=== PATIENT | male | born 1965 | race Caucasian/White ===

== ENCOUNTER 2016-11-09 05:38 | Inpatient (IN) | payer MEDICARE ==
[2016-11-09] MEDS ORDERED: NS 0.9% 1000 ML* 1,000 ML IV ONE (05:51)
[2016-11-09 06:06] LABS: Hematocrit 55 % (42-52); Hemoglobin 16.3 g/dl (14.0-18.0); Mean Corpuscular HGB Conc 30 g/dl (31-36); Mean Corpuscular Hemoglobin 27 pg (27-31); Mean Corpuscular Volume 93 fL (80-94); Mean Platelet Volume 8 um3 (7.4-10.4); Red Blood Count 5.93 10^6/ul (4.0-5.4); Red Cell Distribution Width 19 % (10.5-15); White Blood Count 10.6 10^3/ul (3.5-10.8)
[2016-11-09 06:08] LABS: Add Diff/Slide Review? Slide Review Added; Comments Flag Yes
[2016-11-09 06:15] LABS: ALT 20 U/L (7-52); AST 23 U/L (13-39); Albumin 3.6 g/dL (3.2-5.2); Alkaline Phosphatase 75 U/L (34-104); Anion Gap 7 mmol/L (2-11); BUN/Creatinine Ratio 13.4 (8-20); Blood Urea Nitrogen 11 mg/dL (6-24); CO2 Carbon Dioxide 40 mmol/L (22-32); Calcium 9.6 mg/dL (8.6-10.3); Chloride 87 mmol/L (101-111); Creatine Kinase 41 U/L (10-223); EGFR African American 126.4 (>60); EGFR Non-African American 98.3 (>60); Globulin 4.1 g/dL (2-4); Glucose 193 mg/dL (70-100); Magnesium 2.1 mg/dL (1.9-2.7); Sodium 134 mmol/L (133-145); Total Protein 7.7 g/dL (6.4-8.9)
[2016-11-09 06:19] LABS: Troponin I 0.03 ng/mL (<0.04)
[2016-11-09 06:23] LABS: Alcohol < 10 mg/dL (<10)
[2016-11-09] MEDS ORDERED: Piperac/Tazob 3.375 gm in NS* 3.375 GM/100 ML BAG IVPB ONE (06:27)
[2016-11-09 06:29] LABS: Immature Granulocytes 10 % (0-9); Macrocytosis 1+; Metamyelocytes % 5 % (0-2); Microcytosis 1+; Myelocytes % 1 % (0-1); Neutrophil % 79 % (38-83)
[2016-11-09] MEDS ORDERED: Propofol* 100 ML ONE (06:37)
[2016-11-09 06:38] LABS: FIO2 100; Resp Rate 12
[2016-11-09 06:44] LABS: PCO2 Arterial 122 mmHg (35-45)
[2016-11-09] MEDS ORDERED: Propofol* 500 MG/50 ML BTL IV SCH ×2 (06:48→07:00)
[2016-11-09] MEDS ORDERED: methylPREDNISolone 125 MG* 2 ML VIAL IV ONE (06:50)
[2016-11-09] MEDS ORDERED: Albuterol/Ipratropium NEB.SOL* Albuterol 2.5 MG/Ipratropium 0.5 MG 3 ML INH ONE (06:50)
[2016-11-09] MEDS ORDERED: Propofol* 1000 MG (10 MG/ML 100 ml) @ Per Protocol (in ICU Pyxis) IV SCH (07:00)
[2016-11-09 07:38] LABS: Urine Bacteria Absent (Absent); Urine Bilirubin Negative (Negative); Urine Glucose 1+(50 mg/dL) (Negative); Urine Nitrite Negative (Negative); Urine Sperm Present (Absent)
[2016-11-09 07:53] LABS: Benzodiazepine Urine Screen None Detected (None Detect)
[2016-11-09] MEDS ORDERED: Propofol* 100 ML IV SCH (08:00)
--- NOTE | 2016-11-09 08:03 | ADMNOTE ---
Subjective Date of Service: 11/09/16 Interval History: ADMISSION HISTORY AND PHYSICAL EXAM: Allergies Allergy/AdvReac Type Severity Reaction Status Date / Time Morphine Allergy Severe Hallucinati Verified 02/20/16 13:20 ons Codeine Allergy Mild Rash Verified 02/20/16 13:20 Ibuprofen AdvReac Intermediate stomach Verified 02/20/16 13:20 upset Nalbuphine [From Nubain] AdvReac Mild Congestion Verified 02/20/16 13:20 Home Medications Medication Instructions Recorded Confirmed Type Methadone TAB* [Dolophine TAB*] 20 mg PO TID 04/17/12 03/24/15 History oxyCODONE TAB* [Roxycodone TAB 5 5 mg PO QID PRN 04/17/12 01/29/16 History mg*] Albuterol Sulfate [Proair 2 puff INH Q4H PRN 03/15/15 03/24/15 History Respiclick] Metoprolol Tartrate TAB* 75 mg PO BID 03/15/15 01/29/16 History [Lopressor TAB*] ALPRAZolam TAB* [Xanax TAB*] 1 mg PO BID PRN 03/24/15 03/24/15 History Aspirin EC Low Dose* [Ecotrin EC 81 mg PO DAILY 03/24/15 03/24/15 History Low Dose 81 MG*] Lisinopril [Lisinopril 40 MG-] 40 mg PO DAILY 03/24/15 01/29/16 History Pregabalin CAP(*) [Lyrica CAP(*)] 100 mg PO TID 03/24/15 03/24/15 History busPIRone TAB* [Buspar TAB *] 15 mg PO BID 03/24/15 03/24/15 History clonazePAM TAB(*) [Klonopin TAB(*)] 0.5 - 1 mg PO BID 03/24/15 03/24/15 History Cyclobenzaprine TAB* [Flexeril 10 10 mg PO BID PRN #12 tab 11/20/15 Rx MG TAB*] Amlodipine Besylate [Amlodipine 2.5 mg PO DAILY 01/29/16 01/29/16 History Besylate-] Proair Respiclick 01/29/16 History Tiotropium CAP.INH* [Spiriva 01/29/16 History CAP.INH*] Tiotropium CAP.INH* [Spiriva 1 cap.inh INH DAILY 01/29/16 01/29/16 History CAP.INH*] predniSONE TAB* [Deltasone TAB*] 60 mg PO DAILY #21 tab 01/30/16 Rx Acyclovir TAB* [Zovirax TAB*] 800 mg PO QID #50 tab 02/20/16 Rx Clarithromycin TAB* [Biaxin TAB*] 500 mg PO BID #20 tab 02/20/16 Rx HPI: History is obtained third-hand. Son had to go to [facility] and is not available. He heard a thump and found his father unconscious and called EMS. They reported asystole and did CPR. On arrival here he was in atrial fib , unresponsive. He was intubated, later started on propofol. Family History: Findings - Both parents had COPD Social History: Findings - Smoker. 2 children. SDM unknown if any. Past Medical History: Unchanged from Admission - L IKE, cervical and lumbar spine fusion, appy. COPD, [place]USTIN, HTN, HL, [place], chronic pain. Review of Systems - Measurements Intake and Output: Intake and Output Last 24 Hours 11/07/16 11/08/16 11/09/16 11/10/16 06:59 06:59 06:59 06:59 Intake Total 100 Balance 100 Weight 350 lb Intake: IV Fluids 100 - Review of Systems General Comments: Unable to obtain due to patient's LOC. Objective Active Medications: Heparin Sodium (Porcine) (Heparin Vial(*)) 5,000 units SUBCUT Q8HR RITCHIE Sodium Chloride (Ns 0.9% 1000 Ml*) 1,000 mls @ 100 mls/hr IV ED ONCE ONE Stop: 11/09/16 15:50 Last Admin: 11/09/16 06:48 Dose: 100 mls/hr Propofol (Diprivan*) 100 mls @ 9.525 mls/hr IV .(Initial Rate) RITCHIE; 10 MCG/KG/ MIN PRN Reason: Protocol Last Admin: 11/09/16 06:57 Dose: 9.525 mls/hr Propofol (Diprivan*) 100 mls @ 0 mls/hr IV .(Initial Rate) RITCHIE; As Directed PRN Reason: Protocol Vital Signs 11/09/16 11/09/16 11/09/16 06:01 06:11 06:15 Temperature 97.4 F Pulse Rate 110 99 91 Respiratory 18 16 14 Rate Blood Pressure 107/73 116/74 (mmHg) O2 Sat by Pulse 99 100 100 Oximetry 11/09/16 11/09/16 11/09/16 06:17 06:30 06:34 Temperature Pulse Rate 101 90 93 Respiratory 12 20 21 Rate Blood Pressure 114/64 124/72 (mmHg) O2 Sat by Pulse 100 100 100 Oximetry 11/09/16 11/09/16 11/09/16 06:45 06:52 07:00 Temperature 96.4 F 96.8 F 96.8 F Pulse Rate 75 90 97 Respiratory 24 22 21 Rate Blood Pressure 124/64 124/64 119/72 (mmHg) O2 Sat by Pulse 100 99 99 Oximetry 11/09/16 11/09/16 07:15 07:30 Temperature 96.8 F 96.8 F Pulse Rate 85 90 Respiratory 18 33 Rate Blood Pressure 140/78 143/79 (mmHg) O2 Sat by Pulse 100 100 Oximetry Oxygen Devices in Use Now: - - Intubated Appearance: Supine, head partly up on ED stretcher. Intubated, eyes closed, not responsive. Eyes: No Scleral Icterus Neck: NL Appearance and Movements; NL JVP, No Thyroid Enlargement, Masses Respiratory: Symmetrical Chest Expansion and Respiratory Effort, Clear to Auscultation, Clear to Percussion Cardiovascular: NL Sounds; No Murmurs; No JVD, RRR, No Edema, - Abdominal: NL Sounds; No Tenderness; No Distention, No Hepatosplenomegaly, - - very obese Extremities: No Edema, No Clubbing, Cyanosis, - - IO in R leg Skin: No Nodules or Sclerosis, - - Dried blood on face. Blotchy pink areas chest and torsos. Very fair complexion Neurological: - - Unresponsive to voice or light touch. Pupils both 5 mm and fixed. No EOM's. Result Diagrams: 11/09/16 05:50 11/09/16 05:50 Additional Lab and Data: Lab Results 11/09/16 11/09/16 11/09/16 Range/Units 05:50 05:50 05:50 WBC 10.6 (3.5-10.8) 10^3/ul RBC 5.93 H (4.0-5.4) 10^6/ul Hgb 16.3 (14.0-18.0) g/dl Hct 55 H (42-52) % MCV 93 (80-94) fL MCH 27 (27-31) pg MCHC 30 L (31-36) g/dl RDW 19 H (10.5-15) % Plt Count 204 (150-450) 10^3/ul MPV 8 (7.4-10.4) um3 Immature Gran % (Auto) 10 H (0-9) % Neut % (Auto) 81.4 (38-83) % Lymph % (Auto) 13.9 L (25-47) % [place] % (Auto) 3.9 (1-9) % Eos % (Auto) 0.2 (0-6) % Baso % (Auto) 0.6 (0-2) % Absolute Neuts (auto) 8.6 H (1.5-7.7) 10^3/ul Absolute Lymphs (auto) 1.5 (1.0-4.8) 10^3/ul Absolute Monos (auto) 0.4 (0-0.8) 10^3/ul Absolute Eos (auto) 0 (0-0.6) 10^3/ul Absolute Basos (auto) 0.1 (0-0.2) 10^3/ul Absolute Nucleated RBC 0.07 10^3/ul Neutrophils % 79 (38-83) % Band Neutrophils % 4 (0-8) % Lymphocytes % 8 L (25-47) % Monocytes % 3 (0-13) % Metamyelocytes % 5 H (0-2) % Myelocytes % 1 (0-1) % Nucleated RBC % 0.7 Nucleated RBCs/100 WBC 1 H (0-0) Normal RBC Morphology Not Reportable Microcytosis 1+ Macrocytosis 1+ INR (Anticoag Therapy) 1.01 (0.89-1.11) APTT 29.2 (26.0-36.3) seconds Patient Temperature ABG pH (7.35-7.45) ABG pCO2 (35-45) mmHg ABG pO2 (80-100) mmHg ABG HCO3 (19-31) mmol/L ABG O2 Saturation (95-98) % ABG Base Excess (-2.0-2.0) Respiration Rate O2 Delivery Device Ventilator Type Vent Mode FiO2 Inspiratory Time PEEP Pressure Support Pressure Control EPAP IPAP BiPAP Sodium 134 (133-145) mmol/L Potassium 5.0 (3.5-5.0) mmol/L Chloride 87 L (101-111) mmol/L Carbon Dioxide 40 H (22-32) mmol/L Anion Gap 7 (2-11) mmol/L BUN 11 (6-24) mg/dL Creatinine 0.82 (0.67-1.17) mg/dL Est GFR ( Amer) 126.4 (>60) Est GFR (Non-Af Amer) 98.3 (>60) BUN/Creatinine Ratio 13.4 (8-20) Glucose 193 H (70-100) mg/dL Lactic Acid (0.5-2.0) mmol/L Calcium 9.6 (8.6-10.3) mg/dL Magnesium 2.1 (1.9-2.7) mg/dL Total Bilirubin 0.50 (0.2-1.0) mg/dL AST 23 (13-39) U/L ALT 20 (7-52) U/L Alkaline Phosphatase 75 (34-104) U/L Total Creatine Kinase 41 (10-223) U/L CK-MB (CK-2) 3.1 (0.6-6.3) ng/mL Troponin I 0.03 (<0.04) ng/mL B-Natriuretic Peptide ( - 100) pg/mL Total Protein 7.7 (6.4-8.9) g/dL Albumin 3.6 (3.2-5.2) g/dL Globulin 4.1 H (2-4) g/dL Albumin/Globulin Ratio 0.9 L (1-3) Thyroxine (T4) 4.60 L (6.09-12.23) mcg/mL Serum Alcohol < 10 (<10) mg/dL Blood Type Antibody Screen 11/09/16 11/09/16 11/09/16 Range/Units 05:50 05:50 05:50 WBC (3.5-10.8) 10^3/ul RBC (4.0-5.4) 10^6/ul Hgb (14.0-18.0) g/dl Hct (42-52) % MCV (80-94) fL MCH (27-31) pg MCHC (31-36) g/dl RDW (10.5-15) % Plt Count (150-450) 10^3/ul MPV (7.4-10.4) um3 Immature Gran % (Auto) (0-9) % Neut % (Auto) (38-83) % Lymph % (Auto) (25-47) % [place] % (Auto) (1-9) % Eos % (Auto) (0-6) % Baso % (Auto) (0-2) % Absolute Neuts (auto) (1.5-7.7) 10^3/ul Absolute Lymphs (auto) (1.0-4.8) 10^3/ul Absolute Monos (auto) (0-0.8) 10^3/ul Absolute Eos (auto) (0-0.6) 10^3/ul Absolute Basos (auto) (0-0.2) 10^3/ul Absolute Nucleated RBC 10^3/ul Neutrophils % (38-83) % Band Neutrophils % (0-8) % Lymphocytes % (25-47) % Monocytes % (0-13) % Metamyelocytes % (0-2) % Myelocytes % (0-1) % Nucleated RBC % Nucleated RBCs/100 WBC (0-0) Normal RBC Morphology Microcytosis Macrocytosis INR (Anticoag Therapy) (0.89-1.11) APTT (26.0-36.3) seconds Patient Temperature ABG pH (7.35-7.45) ABG pCO2 (35-45) mmHg ABG pO2 (80-100) mmHg ABG HCO3 (19-31) mmol/L ABG O2 Saturation (95-98) % ABG Base Excess (-2.0-2.0) Respiration Rate O2 Delivery Device Ventilator Type Vent Mode FiO2 Inspiratory Time PEEP Pressure Support Pressure Control EPAP IPAP BiPAP Sodium (133-145) mmol/L Potassium (3.5-5.0) mmol/L Chloride (101-111) mmol/L Carbon Dioxide (22-32) mmol/L Anion Gap (2-11) mmol/L BUN (6-24) mg/dL Creatinine (0.67-1.17) mg/dL Est GFR ( Amer) (>60) Est GFR (Non-Af Amer) (>60) BUN/Creatinine Ratio (8-20) Glucose (70-100) mg/dL Lactic Acid 5.7 H* (0.5-2.0) mmol/L Calcium (8.6-10.3) mg/dL Magnesium (1.9-2.7) mg/dL Total Bilirubin (0.2-1.0) mg/dL AST (13-39) U/L ALT (7-52) U/L Alkaline Phosphatase (34-104) U/L Total Creatine Kinase (10-223) U/L CK-MB (CK-2) (0.6-6.3) ng/mL Troponin I (<0.04) ng/mL B-Natriuretic Peptide 232 H ( - 100) pg/mL Total Protein (6.4-8.9) g/dL Albumin (3.2-5.2) g/dL Globulin (2-4) g/dL Albumin/Globulin Ratio (1-3) Thyroxine (T4) (6.09-12.23) mcg/mL Serum Alcohol (<10) mg/dL Blood Type A Positive Antibody Screen Negative 11/09/16 Range/Units 06:30 WBC (3.5-10.8) 10^3/ul RBC (4.0-5.4) 10^6/ul Hgb (14.0-18.0) g/dl Hct (42-52) % MCV (80-94) fL MCH (27-31) pg MCHC (31-36) g/dl RDW (10.5-15) % Plt Count (150-450) 10^3/ul MPV (7.4-10.4) um3 Immature Gran % (Auto) (0-9) % Neut % (Auto) (38-83) % Lymph % (Auto) (25-47) % [place] % (Auto) (1-9) % Eos % (Auto) (0-6) % Baso % (Auto) (0-2) % Absolute Neuts (auto) (1.5-7.7) 10^3/ul Absolute Lymphs (auto) (1.0-4.8) 10^3/ul Absolute Monos (auto) (0-0.8) 10^3/ul Absolute Eos (auto) (0-0.6) 10^3/ul Absolute Basos (auto) (0-0.2) 10^3/ul Absolute Nucleated RBC 10^3/ul Neutrophils % (38-83) % Band Neutrophils % (0-8) % Lymphocytes % (25-47) % Monocytes % (0-13) % Metamyelocytes % (0-2) % Myelocytes % (0-1) % Nucleated RBC % Nucleated RBCs/100 WBC (0-0) Normal RBC Morphology Microcytosis Macrocytosis INR (Anticoag Therapy) (0.89-1.11) APTT (26.0-36.3) seconds Patient Temperature Not Reportable ABG pH 7.18 L* (7.35-7.45) ABG pCO2 122 H* (35-45) mmHg ABG pO2 211 H (80-100) mmHg ABG HCO3 33.3 H (19-31) mmol/L ABG O2 Saturation 99.2 H (95-98) % ABG Base Excess 11.2 H (-2.0-2.0) Respiration Rate 12 O2 Delivery Device C2 Ventilator Type Not Reportable Vent Mode pcv+ FiO2 100 Inspiratory Time 1 PEEP 5 Pressure Support Not Reportable Pressure Control 28 EPAP Not Reportable IPAP Not Reportable BiPAP Not Reportable Sodium (133-145) mmol/L Potassium (3.5-5.0) mmol/L Chloride (101-111) mmol/L Carbon Dioxide (22-32) mmol/L Anion Gap (2-11) mmol/L BUN (6-24) mg/dL Creatinine (0.67-1.17) mg/dL Est GFR ( Amer) (>60) Est GFR (Non-Af Amer) (>60) BUN/Creatinine Ratio (8-20) Glucose (70-100) mg/dL Lactic Acid (0.5-2.0) mmol/L Calcium (8.6-10.3) mg/dL Magnesium (1.9-2.7) mg/dL Total Bilirubin (0.2-1.0) mg/dL AST (13-39) U/L ALT (7-52) U/L Alkaline Phosphatase (34-104) U/L Total Creatine Kinase (10-223) U/L CK-MB (CK-2) (0.6-6.3) ng/mL Troponin I (<0.04) ng/mL B-Natriuretic Peptide ( - 100) pg/mL Total Protein (6.4-8.9) g/dL Albumin (3.2-5.2) g/dL Globulin (2-4) g/dL Albumin/Globulin Ratio (1-3) Thyroxine (T4) (6.09-12.23) mcg/mL Serum Alcohol (<10) mg/dL Blood Type Antibody Screen Assess/Plan/Problems-Billing Assessment: - Patient Problems (1) Cardiac arrest Current Visit: Yes Status: Acute Code(s): I46.9 - CARDIAC ARREST, CAUSE UNSPECIFIED SNOMED Code(s): 537084651 Comment: Asystole verbal report, had CPR 20 minutes by EMS. May need cooling , will initiate now. (2) Atrial fibrillation Current Visit: Yes Status: Acute Code(s): I48.91 - UNSPECIFIED ATRIAL FIBRILLATION SNOMED Code(s): 78853720 Comment: ? new finding. Echo ordered 11/09. (3) COPD (chronic obstructive pulmonary disease) Current Visit: Yes Status: Acute Code(s): J44.9 - CHRONIC OBSTRUCTIVE PULMONARY DISEASE, UNSPECIFIED SNOMED Code(s): 84489578 Comment: Duoneb prn ordered. (4) Morbid obesity Current Visit: Yes Status: Acute Code(s): E66.01 - MORBID (SEVERE) OBESITY DUE TO EXCESS CALORIES SNOMED Code(s): 990357635 Comment: BMI 47.5. (5) Chronic pain Current Visit: No Status: Chronic Code(s): G89.29 - OTHER CHRONIC PAIN SNOMED Code(s): 49217932 Comment: Multiple home medications for pain and anxiety on hold. Status and Disposition: Under care of grades 1 6 tutor.
[2016-11-09] MEDS ORDERED: Albuterol/Ipratropium NEB.SOL* Albuterol 2.5 MG/Ipratropium 0.5 MG 3 ML INH PRN (08:07)
--- NOTE | 2016-11-09 08:37 | RAD ---
Indication: Shortness of breath. Respiratory failure. Single frontal view of the chest performed at 0635 hours was reviewed. Comparison is made with previous exam dated February 20, 2016. Cardiomegaly with interstitial edema persists. ET tube and nasogastric tube remains in place. IMPRESSION: CARDIOMEGALY WITH INTERSTITIAL EDEMA CONSISTENT WITH VASCULAR CONGESTION.
--- NOTE | 2016-11-09 08:39 | RAD ---
indication: The patient was found down and unresponsive. Relevant surgical history includes "neck surgery x3" COMPARISON: CT of the brain dated March 24, 2015 and CTA of the head and neck dated March 24, [address] scan of the brain and c-spine was performed without intravenous contrast enhancement. Contiguous axial sections were obtained from the lung apices through the vertex. BRAIN: The ventricles, cisterns and sulci are within normal limits. No significant focal abnormality or mass effect is seen. Again seen at the right basal ganglia is a 5 mm hypodensity unchanged from the previous CT of the brain. The medina-white differentiation is adequately maintained. The cerebral sulci are less well-defined than the previous CT examination. There is no evidence for intracranial hemorrhage. No significant bony abnormality is present. The mastoid air cells are appropriately aerated. There is moderate mucosal thickening of the bilateral ethmoid air cells. C-SPINE: The patient's endotracheal tube is partially visualized. There are frothy secretions noted in the posterior nasopharynx above the tube. On the sagittal view image there is straightening of the normal cervical lordosis. The vertebral bodies and facet joints are otherwise appropriately aligned. The dens is intact. There is no widening of the atlantodental interval. Postsurgical changes include laminectomy with anterior plate and screw vertebral body fixation at C5, C6 and C7. Degenerative changes include loss of intervertebral disc height and bony proliferation at the facet joints and uncovertebral joints. Marginal osteophyte formation is seen adjacent to the atlantodental interval and overlying the stabilizing ligaments. There is no hyperdense material in the cervical canal to indicate hemorrhage. The visualized musculature and soft tissues are normal. There is no gross lymphadenopathy visualized. The visualized portion of the lung apices are clear. IMPRESSION: 1. The sulci are less well-defined than the most recent brain CT dated March 24, 2015 which could be seen in the setting of diffuse cerebral edema. 2. Degenerative changes and stable postoperative findings of the cervical spine as described above without identification of acute fracture or dislocation. 3. Incidentally noted are frothy secretions in the posterior nasopharynx above the patient's endotracheal tube.
--- NOTE | 2016-11-09 09:14 | RAD ---
Indication: PICC placement, ET tube placement. Single frontal view of the chest performed at 0900 hours was reviewed. Comparison is made with previous exam dated earlier the same day. Cardiomegaly is noted. Interstitial edema persists. Cardiomegaly is noted. Right-sided PICC line is in place. ET tube in appropriate location. IMPRESSION: CARDIOMEGALY WITH INTERSTITIAL EDEMA. PICC LINE REMAINS IN PLACE.
[2016-11-09] MEDS: NS 0.9% 1000 ML* 1,000 ML IV SCH ×2 (09:38→19:26)
[2016-11-09] MEDS ORDERED: NS 0.9% 1000 ML* 2,000 ML IV ONE (11:07)
[2016-11-09 11:34] LABS: FIO2 40
[2016-11-09 11:41] LABS: PCO2 Arterial 72 mmHg (35-45)
--- NOTE | 2016-11-09 12:34 | PN ---
Progress Note - Progress Note Note: CRITICAL CARE MEDICINE Date: 11/09/16 Time: 1200 SUBJECTIVE: Patient seen and examined. f/u from overnight events. PHYSICAL EXAM: Vital Signs: Reviewed. Neurologic: awakens, but not alert. eyes are dysconjugate. pupils reactive and + corneals but not tracking. Spont decerebrate posturing bl and to individual stimuli. weak gag, cough. Grimace to pain present. HEENT: Sclera anicteric. Trachea midline. Cardiovascular: S1 S2 Respiratory: distant, poor excursion Abdomen: Soft, nt, obese, distended Extremities: Warm. macular rash Access: Picc, io LABS: Reviewed. IMAGING: Reviewed. MEDICATIONS: Reviewed. ASSESSMENT: 51 M [facility] - asystole. ~20min downtime Acute cerebral edema Acute on chronic hypoxic and hypercardiic resp failure Lactic acidosis on admission PLAN: Neurologic: Currently with vegetative state. keep ttm euthermia 24h. recieving NS. see if we can push Na up to present further edema. may need 3%. need some time. can keep on low dose propofol to not inc metabolic demands and will need to f/u narc needs given chronic ailments. Support and reserve further px imaging for now. Cardiovascular: Perfusing now. Keep volume up. tropon not surprising, will get echo but likely not primary. Respiratory: Freda aprv. repeat agb better. support. nebs. Gastrointestinal: ogt. sup. hold off on tf at the moment. Renal/Metabolic: f/u LA clearance and potential stephania Infectious Disease: no abx needs. rash may have been sec to zosyn? Hematology: stable and hemoconcentrated. likely to come down. hsq Endocrine: continue with solumedrol. f/u glu Musculoskeletal: bedrest; skin precations. Psych/Social: will look to discuss with family today Supportive and preventative care as ordered. SUP: ppi VTE prophylaxis: heparin Villaseñor catheter given critical illness, monitoring needs for accurate assessment of STEPHANIA and KDIGO criteria for critically ill patients and to avoid potential harms of urinary retention, skin breakdown/ulcers. Disposition: ICU Code Status: Full presently Critical Care Time: 45min FRosalee Damon DO
--- NOTE | 2016-11-09 13:00 | PN ---
Progress Note - Progress Note Note: CRITICAL CARE MEDICINE Date: 11/09/16 Time: 1300 Pts son and pts sister updated. Pts son hasn't informed pts daughter yet, since he was waiting for more info. They were updated at bedside. They expressed understanding and optimism. Sister explains pt, just 2 days ago was explaining to her that she needs to be in charge of his affairs. They are looking to see if they have paperwork although she does not think it was specific to proxy. Pts son explained how he heard the "thump" and pt must have been trying to ambulate to the bathroom when he fell face down. He was apparently still awake trying to mumble words to son. He didn't want to roll him over so he remains face down. He called 911. Disposition: ICU Code Status: Full Critical Care Time: additional 15min Yared Damon,
[2016-11-09] MEDS: methylPREDNISolone SOD 40 MG* 1 ML VIAL IV SCH ×2 (13:01→18:29)
[2016-11-09] MEDS: Lansoprazole susp Kit 3 MG/ML (30 MG = 10 ML) G TUBE SCH (13:01)
[2016-11-09] MEDS: Chlorhexidine MOUTHWASH 0.12%* 15 ML UDC TOPICAL SCH ×3 (13:01→20:20)
--- NOTE | 2016-11-09 13:13 | ECHO ---
Patient: BENJA URIARTE [facility] Rec#: [id number] : 1965 Date: 11/09/2016 Age: 51y Height: 182.9 cm / 72.0 in Weight: 158.8 kg / 350.0 lbs Sex: M BSA: 2.7 Room#: ICU 10 Admit Date#: 11/09/2016 Type: Inpatient Referring: Hang Robledo MD Reading: Gerhard Morales MD Customer Service Rep: Yany Aguiar RN RDCS CC: Cliff Martínez MD Transthoracic Echocardiogram Indication: Asystole BP: 140/92 HR: 98 Rhythm: A-Fib Findings History: HTN, HLD, morbid obesity, COPD, [place], smoker. The patient is on mechanical ventilation during the exam. Technical Comments: The study is technically limited due to patient body habitus. The study is technically limited due to the patient's history of COPD. The study is technically limited due to the patient's smoking history. The study is technically limited due to patient being intubated and on a ventilator. Completed at 1220. Left Ventricle: The left ventricular chamber size is normal. Mild to moderate concentric left ventricular hypertrophy is observed.sigmoid septum. Global left ventricular wall motion and contractility are within normal limits. There is normal left ventricular systolic function. The estimated ejection fraction is 55-60%. There is septal flattening of the interventricular septum consistent with right ventricular volume or pressure overload. The assessment of diastolic function is non-diagnostic. Left Atrium: The left atrium is mildly dilated. Right Ventricle: The right ventricle wall thickness is severely increased.13 mm The right ventricle is mild to moderately dilated. The right ventricular global systolic function is moderately reduced.to severely reduced. Right Atrium: The right atrium is mildly dilated. Aortic Valve: The aortic valve structure is not well visualized. The aortic valve leaflets are mildly thickened. There is no evidence of aortic regurgitation. There is no evidence of aortic stenosis. Mitral Valve: The mitral valve leaflets are mildly thickened. There is no evidence of mitral regurgitation. There is no evidence of mitral stenosis. Tricuspid Valve: The tricuspid valve leaflets are normal. There is no evidence of tricuspid valve regurgitation. Pulmonic Valve: The pulmonic valve structure is not well visualized. Pericardium: There is no significant pericardial effusion. A pericardial fat pad is visualized. Aorta: The ascending aorta is not well visualized. The aortic arch is not well visualized. The aortic root is normal in size. Pulmonary Artery: The main pulmonary artery is not well visualized. Venous: Unable to accurately comment on the size collapsibility of the IVC as the patient in known to be on mechanical ventilation. Conclusions The study is technically limited due to the patient's history of COPD. Mild to moderate concentric left ventricular hypertrophy is observed with a sigmoid septum. The estimated ejection fraction is 55-60%. The left atrium is mildly dilated. The right ventricle is mild to moderately dilated. The right ventricle wall thickness is severely increased. The right ventricular global systolic function is moderately to severely reduced. No significant valve lesions but suboptimal imaging reduces the ability to detect valvular dysfunction. SImilar to 3.2012 except there was mild TR and moderate pulmonary hypertension reported then. Measurements Name Value Normal Range RVIDd (AP) 2D 3.8 cm (0.9 - 2.6) RVDdMajor (2D) 4.5 cm (2.2 - 4.4) RVAW (2D) 1.3 cm (0.2 - 0.5) RAd ISD 4CH 5.5 cm (3.4 - 4.9) RA (A4C)W 4.1 cm (2.9 - 4.6) IVSd (2D) 1.5 cm (0.6 - 1) LVPWd (2D) 1.1 cm (0.6 - 1) LVIDd (2D) 4.1 cm (3.6 - 5.4) LVIDs (2D) 3.3 cm - LV FS (2D) 20 % (25 - 45) Aortic Annulus 1.9 cm (1.4 - 2.6) Ao root diameter (2D) 2.9 cm (2.1 - 3.5) LA dimension (AP) 2D 3.7 cm (2.3 - 3.8) LAd ISD 4CH 5.5 cm (2.9 - 5.3) LA ISD 4CH W 4 cm (2.5 - 4.5) Name Value Normal Range MV E-wave Vmax 0.86 m/sec - MV deceleration time 215 msec - LV septal e' Vmax 0.12 m/sec - LV lateral e' Vmax 0.14 m/sec - LV E:e' septal ratio 7.2 ratio - LV E:e' lateral ratio 6.1 ratio - Name Value Normal Range AV Vmax 1.2 m/sec - LVOT Vmax 1.1 m/sec - Name Value Normal Range IVC diameter 2.8 cm -
[2016-11-09] MEDS: Sodium Chloride 3% HYPERTONIC* 500 ML IVPB SCH (13:30)
[2016-11-09] MEDS: Propofol* 100 ML IV SCH ×2 (13:42→20:22)
[2016-11-09] MEDS: Heparin VIAL(*) 5000 UNITS/ML VIAL (FIVE THOUSAND) SUBCUT SCH ×2 (13:42→22:31)
--- NOTE | 2016-11-09 19:28 | ED ---
Berry Magaña Aidan, scribed for Ryan Walker on 11/09/16 at 0603 . HPI Cardiac - HPI Summary HPI Summary: 51 y/o male presents to the ED via EMS for an acute, severe episode of cardiac arrest. At 0440, the patients son heard him fall and immediately called 911. On arrival, EMS found the patient face down in the bathroom with no pulse. His body was still warm. EMS looked for access but could not get any. After 20 minutes of manual CPR, pulses were found and the patient had rapid AFib. He was then intubated. He had good wave form. He now has an IO. He was never given medication or electricity. Hx of COPD. 12-lead EKG conducted in the field did not indicate STEMI, according to EMS. Lastly, he presents with some blood on his face due to trauma from his fall. - History of Current Complaint Stated Complaint: CARDIAC ARREST Hx Obtained From: EMS Hx From Patient Unobtainable Due To: Altered Mental Status Onset/Duration: Started Minutes Ago, Still Present Time of Onset: 04:40 Timing: Intermittent Initial Severity: Severe Current Severity: Moderate Pain Intensity: 0 - Pt is unconscious Pain Scale Used: 0-10 Numeric Aggravating Factor(s): Other: - unknown Alleviating Factor(s): Other: - unknown Associated Signs and Symptoms: Positive: Other: - cardiac arrest Related History: Obesity - Risk Factors Pulmonary Embolism Risk Factors: Smoking Cardiac Risk Factors: Smoking Atrial Fibrillation Risk Factors: Chronic Pulmonary Disease - COPD TAD Risk Factors: Smoking AMI/ACS Risk Factors: Smoking Pseudomonas Risk Factors: Chronic Lung Disease - COPD Tuberculosis Risk Factors: Smoking - Additional Pertinent History Primary Care Physician: [id number] - Allergy/Home Medications Allergies/Adverse Reactions: Allergies Allergy/AdvReac Type Severity Reaction Status Date / Time Morphine Allergy Severe Hallucinati Verified 02/20/16 13:20 ons Codeine Allergy Mild Rash Verified 02/20/16 13:20 Ibuprofen AdvReac Intermediate stomach Verified 02/20/16 13:20 upset Nalbuphine [From Nubain] AdvReac Mild Congestion Verified 02/20/16 13:20 PMH/Surg Hx/FS Hx/Imm Hx Endocrine/Hematology History: Reports: Hx Anticoagulant Therapy - HEPARIN SQ WHILE IN HOSPITAL Denies: Hx Diabetes, Hx Thyroid Disease Cardiovascular History: Reports: Hx Congestive Heart Failure - CHRONIC, Hx Coronary Artery Disease, Hx Hypercholesterolemia, Hx Hypotension, Hx Hypertension, Hx Syncope - Hx of syncopal episodes Denies: Hx Pacemaker/ICD Respiratory History: Reports: Hx Asthma, Hx Chronic Obstructive Pulmonary Disease (COPD), Hx Sleep Apnea, Other Respiratory Problems/Disorders - On Contiinuos O2 GI History: Reports: Other GI Disorders - APPENDECTOMY History: Reports: Hx Kidney Stones Denies: Hx Renal Disease, Other Problems/Disorders Musculoskeletal History: Reports: Hx Back Problems, Other Musculoskeletal History - chronic pain Sensory History: Denies: Hx Hearing Aid Neurological History: Reports: 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 low back surgery x2,. ORIF fracture right foot,. exc renal calculi. T&A,. appendectomy. septoplasty ,. left Total Hip Replacement,. RIGHT HAND ORIF Hx Anesthesia Reactions: - UNKNOWN - Immunization History Date of Tetanus Vaccine: unknown Date of Influenza Vaccine: unknown Infectious Disease History: Denies: Hx Hepatitis, Hx Human Immunodeficiency Virus (HIV), Traveled Outside the [place] in Last 30 Days - UNKNOWN - Family History Known Family History: Positive: Cardiac Disease - Social History Occupation: Disabled Lives: Assisted Living Alcohol Use: None Substance Use Type: Reports: None Smoking Status (MU): Heavy Every Day Tobacco Smoker Type: Cigarettes Amount Used/How Often: < 1ppd Have You Smoked in the Last Year: Yes Review of Systems Constitutional: Negative Eyes: Negative ENT: Negative Cardiovascular: Other - cardiac arest, AFib Negative: Chest Pain Respiratory: Negative Gastrointestinal: Negative Genitourinary: Negative Musculoskeletal: Negative Skin: Negative Neurological: Negative Psychological: Normal All Other Systems Reviewed And Are Negative: Yes Physical Exam Triage Information Reviewed: Yes Vital Signs On Initial Exam: Initial Vitals Temp Pulse Resp BP Pulse Ox 97.4 F 110 18 107/73 99 11/09/16 06:01 11/09/16 06:01 11/09/16 06:01 11/09/16 06:01 11/09/16 06:01 Appearance: Positive: Obese Skin: Positive: Warm, Skin Color Reflects Adequate Perfusion, Dry Head/Face: Positive: Normal Head/Face Inspection, Other - blood on the right orbit area Eyes: Positive: Normal ENT: Positive: Normal ENT inspection Neck: Positive: Supple, Nontender Respiratory/Lung Sounds: Positive: Other - mechanical ventilation, breath sounds equal Cardiovascular: Positive: Other - irregularly irregular heartbeat Abdomen Description: Positive: Distended Bowel Sounds: Positive: Present Musculoskeletal: Positive: Other - no pitting edema Neurological: Positive: Other - unconscious Psychiatric: Positive: Other - Pt is unconscious and has been since arrival AVPU Assessment: Unconscious Diagnostics - Vital Signs Vital Signs Temp Pulse Resp BP Pulse Ox 11/09/16 06:52 96.8 F 90 22 124/64 99 11/09/16 06:01 97.4 F 110 18 107/73 99 - Laboratory Lab Results: Lab Results 11/09/16 11/09/16 11/09/16 Range/Units 05:50 05:50 05:50 WBC 10.6 (3.5-10.8) 10^3/ul RBC 5.93 H (4.0-5.4) 10^6/ul Hgb 16.3 (14.0-18.0) g/dl Hct 55 H (42-52) % MCV 93 (80-94) fL MCH 27 (27-31) pg MCHC 30 L (31-36) g/dl RDW 19 H (10.5-15) % Plt Count 204 (150-450) 10^3/ul MPV 8 (7.4-10.4) um3 Immature Gran % (Auto) 10 H (0-9) % Neut % (Auto) 81.4 (38-83) % Lymph % (Auto) 13.9 L (25-47) % [place] % (Auto) 3.9 (1-9) % Eos % (Auto) 0.2 (0-6) % Baso % (Auto) 0.6 (0-2) % Absolute Neuts (auto) 8.6 H (1.5-7.7) 10^3/ul Absolute Lymphs (auto) 1.5 (1.0-4.8) 10^3/ul Absolute Monos (auto) 0.4 (0-0.8) 10^3/ul Absolute Eos (auto) 0 (0-0.6) 10^3/ul Absolute Basos (auto) 0.1 (0-0.2) 10^3/ul Absolute Nucleated RBC 0.07 10^3/ul Neutrophils % 79 (38-83) % Band Neutrophils % 4 (0-8) % Lymphocytes % 8 L (25-47) % Monocytes % 3 (0-13) % Metamyelocytes % 5 H (0-2) % Myelocytes % 1 (0-1) % Nucleated RBC % 0.7 Nucleated RBCs/100 WBC 1 H (0-0) Normal RBC Morphology Not Reportable Microcytosis 1+ Macrocytosis 1+ INR (Anticoag Therapy) 1.01 (0.89-1.11) APTT 29.2 (26.0-36.3) seconds Patient Temperature ABG pH (7.35-7.45) ABG pCO2 (35-45) mmHg ABG pO2 (80-100) mmHg ABG HCO3 (19-31) mmol/L ABG O2 Saturation (95-98) % ABG Base Excess (-2.0-2.0) Respiration Rate O2 Delivery Device Ventilator Type Vent Mode FiO2 Inspiratory Time PEEP Pressure Support Pressure Control EPAP IPAP BiPAP Sodium 134 (133-145) mmol/L Potassium 5.0 (3.5-5.0) mmol/L Chloride 87 L (101-111) mmol/L Carbon Dioxide 40 H (22-32) mmol/L Anion Gap 7 (2-11) mmol/L BUN 11 (6-24) mg/dL Creatinine 0.82 (0.67-1.17) mg/dL Est GFR ( Amer) 126.4 (>60) Est GFR (Non-Af Amer) 98.3 (>60) BUN/Creatinine Ratio 13.4 (8-20) Glucose 193 H (70-100) mg/dL Lactic Acid (0.5-2.0) mmol/L Calcium 9.6 (8.6-10.3) mg/dL Magnesium 2.1 (1.9-2.7) mg/dL Total Bilirubin 0.50 (0.2-1.0) mg/dL AST 23 (13-39) U/L ALT 20 (7-52) U/L Alkaline Phosphatase 75 (34-104) U/L Total Creatine Kinase 41 (10-223) U/L CK-MB (CK-2) 3.1 (0.6-6.3) ng/mL Troponin I 0.03 (<0.04) ng/mL B-Natriuretic Peptide ( - 100) pg/mL Total Protein 7.7 (6.4-8.9) g/dL Albumin 3.6 (3.2-5.2) g/dL Globulin 4.1 H (2-4) g/dL Albumin/Globulin Ratio 0.9 L (1-3) Thyroxine (T4) 4.60 L (6.09-12.23) mcg/mL Serum Alcohol < 10 (<10) mg/dL Blood Type Antibody Screen 11/09/16 11/09/16 11/09/16 Range/Units 05:50 05:50 05:50 WBC (3.5-10.8) 10^3/ul RBC (4.0-5.4) 10^6/ul Hgb (14.0-18.0) g/dl Hct (42-52) % MCV (80-94) fL MCH (27-31) pg MCHC (31-36) g/dl RDW (10.5-15) % Plt Count (150-450) 10^3/ul MPV (7.4-10.4) um3 Immature Gran % (Auto) (0-9) % Neut % (Auto) (38-83) % Lymph % (Auto) (25-47) % [place] % (Auto) (1-9) % Eos % (Auto) (0-6) % Baso % (Auto) (0-2) % Absolute Neuts (auto) (1.5-7.7) 10^3/ul Absolute Lymphs (auto) (1.0-4.8) 10^3/ul Absolute Monos (auto) (0-0.8) 10^3/ul Absolute Eos (auto) (0-0.6) 10^3/ul Absolute Basos (auto) (0-0.2) 10^3/ul Absolute Nucleated RBC 10^3/ul Neutrophils % (38-83) % Band Neutrophils % (0-8) % Lymphocytes % (25-47) % Monocytes % (0-13) % Metamyelocytes % (0-2) % Myelocytes % (0-1) % Nucleated RBC % Nucleated RBCs/100 WBC (0-0) Normal RBC Morphology Microcytosis Macrocytosis INR (Anticoag Therapy) (0.89-1.11) APTT (26.0-36.3) seconds Patient Temperature ABG pH (7.35-7.45) ABG pCO2 (35-45) mmHg ABG pO2 (80-100) mmHg ABG HCO3 (19-31) mmol/L ABG O2 Saturation (95-98) % ABG Base Excess (-2.0-2.0) Respiration Rate O2 Delivery Device Ventilator Type Vent Mode FiO2 Inspiratory Time PEEP Pressure Support Pressure Control EPAP IPAP BiPAP Sodium (133-145) mmol/L Potassium (3.5-5.0) mmol/L Chloride (101-111) mmol/L Carbon Dioxide (22-32) mmol/L Anion Gap (2-11) mmol/L BUN (6-24) mg/dL Creatinine (0.67-1.17) mg/dL Est GFR ( Amer) (>60) Est GFR (Non-Af Amer) (>60) BUN/Creatinine Ratio (8-20) Glucose (70-100) mg/dL Lactic Acid 5.7 H* (0.5-2.0) mmol/L Calcium (8.6-10.3) mg/dL Magnesium (1.9-2.7) mg/dL Total Bilirubin (0.2-1.0) mg/dL AST (13-39) U/L ALT (7-52) U/L Alkaline Phosphatase (34-104) U/L Total Creatine Kinase (10-223) U/L CK-MB (CK-2) (0.6-6.3) ng/mL Troponin I (<0.04) ng/mL B-Natriuretic Peptide 232 H ( - 100) pg/mL Total Protein (6.4-8.9) g/dL Albumin (3.2-5.2) g/dL Globulin (2-4) g/dL Albumin/Globulin Ratio (1-3) Thyroxine (T4) (6.09-12.23) mcg/mL Serum Alcohol (<10) mg/dL Blood Type A Positive Antibody Screen Negative 11/09/16 Range/Units 06:30 WBC (3.5-10.8) 10^3/ul RBC (4.0-5.4) 10^6/ul Hgb (14.0-18.0) g/dl Hct (42-52) % MCV (80-94) fL MCH (27-31) pg MCHC (31-36) g/dl RDW (10.5-15) % Plt Count (150-450) 10^3/ul MPV (7.4-10.4) um3 Immature Gran % (Auto) (0-9) % Neut % (Auto) (38-83) % Lymph % (Auto) (25-47) % [place] % (Auto) (1-9) % Eos % (Auto) (0-6) % Baso % (Auto) (0-2) % Absolute Neuts (auto) (1.5-7.7) 10^3/ul Absolute Lymphs (auto) (1.0-4.8) 10^3/ul Absolute Monos (auto) (0-0.8) 10^3/ul Absolute Eos (auto) (0-0.6) 10^3/ul Absolute Basos (auto) (0-0.2) 10^3/ul Absolute Nucleated RBC 10^3/ul Neutrophils % (38-83) % Band Neutrophils % (0-8) % Lymphocytes % (25-47) % Monocytes % (0-13) % Metamyelocytes % (0-2) % Myelocytes % (0-1) % Nucleated RBC % Nucleated RBCs/100 WBC (0-0) Normal RBC Morphology Microcytosis Macrocytosis INR (Anticoag Therapy) (0.89-1.11) APTT (26.0-36.3) seconds Patient Temperature Not Reportable ABG pH 7.18 L* (7.35-7.45) ABG pCO2 122 H* (35-45) mmHg ABG pO2 211 H (80-100) mmHg ABG HCO3 33.3 H (19-31) mmol/L ABG O2 Saturation 99.2 H (95-98) % ABG Base Excess 11.2 H (-2.0-2.0) Respiration Rate 12 O2 Delivery Device C2 Ventilator Type Not Reportable Vent Mode pcv+ FiO2 100 Inspiratory Time 1 PEEP 5 Pressure Support Not Reportable Pressure Control 28 EPAP Not Reportable IPAP Not Reportable BiPAP Not Reportable Sodium (133-145) mmol/L Potassium (3.5-5.0) mmol/L Chloride (101-111) mmol/L Carbon Dioxide (22-32) mmol/L Anion Gap (2-11) mmol/L BUN (6-24) mg/dL Creatinine (0.67-1.17) mg/dL Est GFR ( Amer) (>60) Est GFR (Non-Af Amer) (>60) BUN/Creatinine Ratio (8-20) Glucose (70-100) mg/dL Lactic Acid (0.5-2.0) mmol/L Calcium (8.6-10.3) mg/dL Magnesium (1.9-2.7) mg/dL Total Bilirubin (0.2-1.0) mg/dL AST (13-39) U/L ALT (7-52) U/L Alkaline Phosphatase (34-104) U/L Total Creatine Kinase (10-223) U/L CK-MB (CK-2) (0.6-6.3) ng/mL Troponin I (<0.04) ng/mL B-Natriuretic Peptide ( - 100) pg/mL Total Protein (6.4-8.9) g/dL Albumin (3.2-5.2) g/dL Globulin (2-4) g/dL Albumin/Globulin Ratio (1-3) Thyroxine (T4) (6.09-12.23) mcg/mL Serum Alcohol (<10) mg/dL Blood Type Antibody Screen Result Diagrams: 11/09/16 05:50 11/09/16 05:50 Lab Statement: Any lab studies that have been ordered have been reviewed, and results considered in the medical decision making process. - CT CT SPINE CT Interpretation: No Acute Changes - IMPRESSION: Patient is status post C5-C7 anterior fusion. Hardware appears in satisfactory position. Patient is also status post multilevel cervical laminectomy. Negative for cervical fracture or malalignment. CT Interpretation Completed By: Radiologist - press operator carbon blocks Disposition - Course Course Of Treatment: This is a 51 y/o male presenting via EMS for an acute, severe episode of cardiac arrest. At 0440, the patients son heard him fall and immediately called 911. On arrival, EMS found the patient face down in the bathroom with no pulse. After 20 minutes of manual CPR, pulses were found and the patient had rapid AFib. He was then intubated. He was never given medication or electricity. Hx of COPD. 12-lead EKG conducted in the field did not indicate STEMI, according to EMS. EKG in the ED indicated AFib. The patient will be admitted to Dr. Lepe for further examination. d/w Dr Victoria neurology for consult. - Diagnoses Provider Diagnoses: Cardiac arrest, Syncope, Head injury, Atrial fibrillation, Respiratory failure , hypercarbia status post intubation, Cerebral edema, ASYSTOLE - Critical Care Time Critical Care Time: 30-74 min - 60 minutes Discharge - Discharge Plan Condition: Critical Disposition: OTHER Discharge Disposition Comment: Patient is admitted to Dr. Lepe. The documentation as recorded by the Berry allison Aidan accurately reflects the service I personally performed and the decisions made by , Ryan Walker.
[2016-11-10] MEDS: methylPREDNISolone SOD 40 MG* 1 ML VIAL IV SCH ×5 (00:32→23:19)
[2016-11-10] MEDS: Chlorhexidine MOUTHWASH 0.12%* 15 ML UDC TOPICAL SCH ×7 (00:32→23:19)
[2016-11-10] MEDS: Propofol* 100 ML IV SCH ×8 (01:43→23:52)
[2016-11-10] MEDS: Sodium Chloride 3% HYPERTONIC* 500 ML IVPB SCH ×4 (01:57→21:43)
[2016-11-10] MEDS: NS 0.9% 1000 ML* 1,000 ML IV SCH ×2 (03:35→10:11)
[2016-11-10] MEDS: fentaNYL* 50 MCG/ML 2 ML VIAL (100 MCG VIAL) IV SLOW PU PRN ×4 (05:32→21:55)
[2016-11-10] MEDS: Heparin VIAL(*) 5000 UNITS/ML VIAL (FIVE THOUSAND) SUBCUT SCH ×3 (05:32→20:27)
[2016-11-10 05:53] LABS: Hematocrit 47 % (42-52); Hemoglobin 14.3 g/dl (14.0-18.0); Mean Corpuscular HGB Conc 30 g/dl (31-36); Mean Corpuscular Hemoglobin 27 pg (27-31); Mean Corpuscular Volume 88 fL (80-94); Mean Platelet Volume 8 um3 (7.4-10.4); Red Blood Count 5.36 10^6/ul (4.0-5.4); Red Cell Distribution Width 18 % (10.5-15); White Blood Count 9.9 10^3/ul (3.5-10.8)
[2016-11-10 05:54] LABS: Comments Flag Yes
[2016-11-10 06:09] LABS: Albumin 2.7 g/dL (3.2-5.2); Direct Bilirubin 0.2 mg/dL (0.03-0.18); Globulin 3.2 g/dL (2-4); Indirect Bilirubin 0.3 mg/dL (0.3-1.0); Magnesium 1.8 mg/dL (1.9-2.7); Phosphorus 2.6 mg/dL (2.5-5.0); Total Bilirubin 0.5 mg/dL (0.2-1.0); Total Protein 5.9 g/dL (6.4-8.9)
[2016-11-10] MEDS: Lansoprazole susp Kit 3 MG/ML (30 MG = 10 ML) G TUBE SCH (07:51)
[2016-11-10] MEDS ORDERED: fentaNYL* 50 MCG/ML 2 ML VIAL (100 MCG VIAL) ONE (10:24)
[2016-11-10] MEDS ORDERED: LORazepam INJ* 2 MG/ML 1 ML VIAL ONE (10:32)
[2016-11-10] MEDS ORDERED: NS 0.9% 1000 ML* 1,000 ML IV SCH (10:34)
[2016-11-10] MEDS ORDERED: LORazepam INJ* 2 MG/ML 1 ML VIAL IV PUSH ONE ×2 (10:34→23:00)
[2016-11-10] MEDS ORDERED: fentaNYL* 50 MCG/ML 2 ML VIAL (100 MCG VIAL) IV SLOW PU ONE (10:34)
[2016-11-10] MEDS ORDERED: Magnesium Sulf 4 GM/100 ML IV* 4,000 MG/100 ML BAG IVPB ONE (10:36)
[2016-11-10] MEDS ORDERED: fentaNYL PCA* 20 ML ONE (10:45)
[2016-11-10] MEDS: fentaNYL PCA* 20 ML PCA SCH (10:46)
[2016-11-10 10:54] LABS: BUN/Creatinine Ratio 37.8 (8-20); Calcium 8.4 mg/dL (8.6-10.3); EGFR African American 252.6 (>60); EGFR Non-African American 196.4 (>60)
--- NOTE | 2016-11-10 11:26 | PN ---
Progress Note - Progress Note Note: CRITICAL CARE MEDICINE Date: 11/10/16 Time: 905 SUBJECTIVE: Patient seen and examined. PHYSICAL EXAM: Vital Signs: Reviewed. Neurologic: awakens, not following commands, but starting to move more off sedation. eyes more conjugate. pupils reactive and +corneals. Grimace and movement to pain. shivering off prop. HEENT: Sclera anicteric but edema present. Trachea midline. Cardiovascular: S1 S2 Respiratory: distant, little better excursion, coarse Abdomen: Soft, nt, obese, distended Extremities: Warm. macular rash better Access: Picc LABS: Reviewed. IMAGING: Reviewed. MEDICATIONS: Reviewed. ASSESSMENT: 51 M [facility]CA - asystole. ~20min downtime Acute cerebral edema Acute on chronic hypoxic and hypercardic resp failure Lactic acidosis on admission PLAN: Neurologic: keep ttm euthermia another 24h and then more liberal control. 3% to combat cerebral edema. propofol continued to blunt shivering and dec metabolic demands. given pain ongoing utilize fent gtt as well. Support and time. Cardiovascular: Perfusion holding. vol status ok. echo no surprises. Respiratory: Freda aprv continued. support. nebs. Gastrointestinal: ogt. sup. tf today. Renal/Metabolic: f/u lytes Infectious Disease: no abx needs. Hematology: stable. hsq Endocrine: continue with solumedrol. f/u glu Musculoskeletal: bedrest; skin precautions. Psych/Social: pts other son present today and updated. explained we should anticipate family meeting on Saturday. Supportive and preventative care as ordered. SUP: ppi VTE prophylaxis: heparin Villaseñor catheter given critical illness, monitoring needs for accurate assessment of STEPHANIA and KDIGO criteria for critically ill patients and to avoid potential harms of urinary retention, skin breakdown/ulcers. Disposition: ICU Code Status: Full presently Critical Care Time: 40min Yared Damon DO
--- NOTE | 2016-11-10 13:30 | PN ---
Correspondence/Letterhead Correspondence: 11/10/16 RE: BENJA URIARTE November 10, 2016 Work Note To whom it may concern, Benja Uriarte, father for Ashwin Uriarte, has been under my care since November 09, 2016, and remains critically ill in the intensive care unit at [facility]. Family presence is immediately requested. Patient will remain critically ill in the intensive care unit for some time. Please allow this to document to serve as validation. Sincerely, Yared Damon DO ICU [place] [facility] SupervisorSeptic Cleaner Medicine [address] [place] [address] Carlos Damon DO [id number]
[2016-11-11] MEDS: Propofol* 100 ML IV SCH ×10 (01:38→21:31)
[2016-11-11] MEDS: fentaNYL* 50 MCG/ML 2 ML VIAL (100 MCG VIAL) IV SLOW PU PRN (03:17)
[2016-11-11] MEDS: Chlorhexidine MOUTHWASH 0.12%* 15 ML UDC TOPICAL SCH ×7 (03:18→23:59)
[2016-11-11] MEDS: fentaNYL PCA* 20 ML PCA SCH ×2 (03:20→20:23)
[2016-11-11] MEDS: methylPREDNISolone SOD 40 MG* 1 ML VIAL IV SCH ×4 (05:22→23:59)
[2016-11-11] MEDS: Heparin VIAL(*) 5000 UNITS/ML VIAL (FIVE THOUSAND) SUBCUT SCH ×3 (05:22→21:30)
[2016-11-11] MEDS: Sodium Chloride 3% HYPERTONIC* 500 ML IVPB SCH ×2 (05:35→11:24)
[2016-11-11 05:51] LABS: Hematocrit 44 % (42-52); Hemoglobin 13.1 g/dl (14.0-18.0); Mean Corpuscular HGB Conc 30 g/dl (31-36); Mean Corpuscular Hemoglobin 27 pg (27-31); Mean Corpuscular Volume 89 fL (80-94); Mean Platelet Volume 8 um3 (7.4-10.4); Red Blood Count 4.89 10^6/ul (4.0-5.4); Red Cell Distribution Width 19 % (10.5-15); White Blood Count 8.1 10^3/ul (3.5-10.8)
[2016-11-11 05:53] LABS: Comments Flag Yes
[2016-11-11 06:07] LABS: Calcium 8.6 mg/dL (8.6-10.3); Magnesium 2.4 mg/dL (1.9-2.7); Phosphorus 2.3 mg/dL (2.5-5.0); Potassium 4.1 mmol/L (3.5-5.0)
--- NOTE | 2016-11-11 10:31 | PN ---
Progress Note - Progress Note Note: CRITICAL CARE MEDICINE Date: 11/11/16 Time: 1000 SUBJECTIVE: Patient seen and examined. Shivering last pm, and since he had gone ~36h with cooling needs, and was having inc sedation demands, thought it better to dc tight control and utilize prn meds rather then allow shivering to increase metabolic consumption. PHYSICAL EXAM: Vital Signs: Reviewed. Neurologic: awake, not following commands, respond to threat but inconsisitent. attempting more localizing with painful stimuli. HEENT: Sclera injected L>R, conjunctival edema present but better. Trachea midline. ett high Cardiovascular: S1 S2 Respiratory: distant, coarse Abdomen: Soft, nt, obese, less distended Extremities: Warm. macular rash improved Access: Picc LABS: Reviewed. IMAGING: Reviewed. MEDICATIONS: Reviewed. ASSESSMENT: 51 M [facility] - asystole. ~20min downtime Acute cerebral edema Acute on chronic hypoxic and hypercardic resp failure Lactic acidosis on admission COPD Anoxic josé injury PLAN: Neurologic: maintain euthermia without external cooling. check Head CT today to re-eval degree of edema. may obtian further px testing this week but have time for such. can likely come off 3% today but eval ct first. Support and time. Cardiovascular: Perfusing. vol status up interstially. hold off on overloading, although needs patency of flow with his chronic right heart dysfunction. Respiratory: Freda aprv continued. support. nebs. Gastrointestinal: ogt. sup. tf. Renal/Metabolic: f/u lytes and low uout this am. Infectious Disease: no abx needs. Hematology: stable. hsq Endocrine: continue solumedrol. f/u glu Musculoskeletal: bedrest; skin precautions. Psych/Social: will need family meeting saturday. palliative/spiritual support if family desires. Supportive and preventative care as ordered. SUP: ppi VTE prophylaxis: heparin Villaseñor catheter given critical illness, monitoring needs for accurate assessment of STEPHANIA and KDIGO criteria for critically ill patients and to avoid potential harms of urinary retention, skin breakdown/ulcers. Disposition: ICU Code Status: Full Critical Care Time: 36min FRosalee Dmaon DO
[2016-11-11] MEDS ORDERED: Furosemide IV* 10 MG/ML VIAL (40 MG) IV SLOW PU ONE (11:18)
--- NOTE | 2016-11-11 11:18 | RAD ---
INDICATION: Verification of OG tube placement COMPARISON: Chest x-ray dated November 09, 2016 TECHNIQUE: Single AP portable view of the chest was obtained. FINDINGS: Image quality is compromised due to the relative inferiority of a portable chest x-ray and the patient's large body habitus. A gastric tube is confidently seen overlying the mediastinum and at least a portion of the tube is seen below the level the diaphragm. The tip of the tube is obscured. Again seen is a right-sided PICC line with the tip terminating in the superior vena cava. Heart and lungs are grossly normal. IMPRESSION: A portion of the gastric tube is identified below the level of the diaphragm, although the tip is not discretely visualized.
[2016-11-11] MEDS ORDERED: Potassium Chloride LIQUID* 20 MEQ PACKET G TUBE ONE (11:30)
[2016-11-11] MEDS: Lansoprazole susp Kit 3 MG/ML (30 MG = 10 ML) G TUBE SCH (11:37)
--- NOTE | 2016-11-11 11:40 | RAD ---
INDICATION: Follow-up suspected and anoxic brain injury to the brain COMPARISON: Most recent comparison CT of the brain is dated November 09, 2016. There is a CT of the brain dated March 24, 2015 available for comparison as well. TECHNIQUE: Contiguous axial sections of the brain were obtained from the skull base to the vertex without contrast. FINDINGS: The ventricles, cisterns and sulci are within normal limits. Maintenance of the arguello-white matter differentiation is preserved but less so when compared to the 2 most recent previous brain CTs. The sulci are still adequately defined. No significant focal abnormality or mass effect is present. There is no evidence for intracranial hemorrhage. No significant focal osseous abnormality is present. The visualized portion of the paranasal sinuses and mastoid air cells appear clear. IMPRESSION: Currently the arguello-white matter differentiation is still adequately defined no graft less so that the 2 previous CTs of the brain dated 11/09/2016 and 03/24/2015. At this time the sulci do not appear effaced.
[2016-11-11] MEDS: Potassium Acid Phosphate TAB* 500 MG G TUBE SCH ×2 (11:42→19:50)
[2016-11-11] MEDS: Acetaminophen ADULT LIQ* 650 MG/20.3 ML UDC G TUBE PRN (12:42)
[2016-11-12] MEDS: Propofol* 100 ML IV SCH ×10 (01:59→23:46)
[2016-11-12] MEDS: Chlorhexidine MOUTHWASH 0.12%* 15 ML UDC TOPICAL SCH ×6 (03:51→23:49)
[2016-11-12 04:41] LABS: Hematocrit 45 % (42-52); Hemoglobin 13.3 g/dl (14.0-18.0); Mean Corpuscular HGB Conc 30 g/dl (31-36); Mean Corpuscular Hemoglobin 27 pg (27-31); Mean Corpuscular Volume 89 fL (80-94); Mean Platelet Volume 8 um3 (7.4-10.4); Red Blood Count 5.01 10^6/ul (4.0-5.4); Red Cell Distribution Width 19 % (10.5-15)
[2016-11-12 04:50] LABS: Comments Flag Yes
[2016-11-12 04:57] LABS: BUN/Creatinine Ratio 48.3 (8-20); Blood Urea Nitrogen 29 mg/dL (6-24); CO2 Carbon Dioxide 36 mmol/L (22-32); Calcium 8.7 mg/dL (8.6-10.3); Chloride 107 mmol/L (101-111); EGFR African American 181.3 (>60); EGFR Non-African American 140.9 (>60); Glucose 138 mg/dL (70-100); Phosphorus 3.6 mg/dL (2.5-5.0); Sodium 144 mmol/L (133-145)
[2016-11-12] MEDS: Heparin VIAL(*) 5000 UNITS/ML VIAL (FIVE THOUSAND) SUBCUT SCH ×3 (05:42→21:29)
[2016-11-12] MEDS: methylPREDNISolone SOD 40 MG* 1 ML VIAL IV SCH ×2 (06:19→20:36)
[2016-11-12] MEDS: Lansoprazole susp Kit 3 MG/ML (30 MG = 10 ML) G TUBE SCH (07:43)
[2016-11-12] MEDS: Potassium Acid Phosphate TAB* 500 MG G TUBE SCH ×2 (07:44→20:39)
--- NOTE | 2016-11-12 07:44 | RAD ---
HISTORY: Endotracheal tube placement, cardiac arrest COMPARISONS: November 11, 2016 VIEWS:1: Single frontal portable view of the chest at 6:05 AM FINDINGS: LINES AND TUBES: An endotracheal tube is noted with the tip overlying the trachea at the level clavicles. A gastric tube is noted. The tip is not well visualized secondary to technique, and is only visible to the level of the midesophagus. A right-sided PICC line is noted with the tip overlying the superior cava. CARDIOMEDIASTINAL SILHOUETTE: The cardiomediastinal silhouette is normal for portable technique. PLEURA: The costophrenic angles are sharp. No pleural abnormalities are noted. LUNG PARENCHYMA: There is prominence of the central pulmonary vasculature. ABDOMEN: The upper abdomen is clear. There is no subphrenic gas. BONES AND SOFT TISSUES: The patient is status post anterior cervical fusion. IMPRESSION: 1. LINES AND TUBES ABOVE. THE GASTRIC TUBE IS NOT WELL VISUALIZED SECONDARY TO TECHNIQUE, WITH THE TIP ONLY VISIBLE TO THE LEVEL OF THE MID ESOPHAGUS. 2. PULMONARY VASCULAR CONGESTION.
[2016-11-12 08:53] LABS: Magnesium 2.3 mg/dL (1.9-2.7)
[2016-11-12] MEDS ORDERED: fentaNYL* 50 MCG/ML 2 ML VIAL (100 MCG VIAL) IV SLOW PU ONE (09:58)
[2016-11-12] MEDS ORDERED: Chlorothiazide IV* 250 MG in NS 0.9% 50 ML* 50 ML IVPB ONE (10:26)
--- NOTE | 2016-11-12 10:26 | RAD ---
HISTORY: Tube placement COMPARISONS: November 12, 2016 at 6:05 AM VIEWS:1: Single frontal portable view of the chest at 10:00 AM FINDINGS: LINES AND TUBES: An endotracheal tube is noted with tip overlying the trachea at the level clavicles. A gastric tube is noted. The tip is not well-visualized secondary to technique, but appears to be in the left upper quadrant in a prepyloric position. A right-sided PICC line is noted with the tip overlying the superior vena cava. CARDIOMEDIASTINAL SILHOUETTE: The cardiomediastinal silhouette is normal for portable technique. PLEURA: The costophrenic angles are sharp. No pleural abnormalities are noted. LUNG PARENCHYMA: There is prominence of the central pulmonary vasculature. ABDOMEN: The upper abdomen is clear. There is no subphrenic gas. BONES AND SOFT TISSUES: The patient is status post anterior cervical fusion. IMPRESSION: 1. LINES AND TUBES ABOVE. 2. PULMONARY VASCULAR CONGESTION
[2016-11-12] MEDS ORDERED: LORazepam INJ* 2 MG/ML 1 ML VIAL IV PUSH ONE ×2 (10:27→12:26)
--- NOTE | 2016-11-12 10:56 | PN ---
Progress Note - Progress Note Note: CRITICAL CARE MEDICINE Date: 11/12/16 Time: 1000 SUBJECTIVE: Patient seen and examined. Ett retracted and losing volume from cuff. advanced ett and improved. PHYSICAL EXAM: Vital Signs: Reviewed. Neurologic: awake, not following my commands, but did for nursing. upward gaze preference. localizing quicker to pain. HEENT: Sclera less injected L>R, conjunctival edema better. Trachea midline. ett high and advanced Cardiovascular: S1 S2 Respiratory: distant, paradoxical pattern, coarse with inc rhonchi Abdomen: Soft, nt, obese, same distention Extremities: Warm. +edema macular rash improved Access: Picc LABS: Reviewed. IMAGING: Reviewed. MEDICATIONS: Reviewed. ASSESSMENT: 51 M OHCA - asystole. ~20min downtime Acute cerebral edema Acute on chronic hypoxic and hypercardic resp failure Lactic acidosis on admission COPD Anoxic josé injury Tobacco abuse ongoing Chronic pain ailments on metadone previously PLAN: Neurologic: temp ok. neuro status is slowly seemingly improving. off propofol this am. continued fentanyl use. add nicotine td. Support and time. Cardiovascular: Perfusing. vol status up and can start to mobilize today with diuretics and see if we can improve him overall further in hopes his neuro status will improve enough in next few days to earn liberation. Respiratory: CPAP trial today to test mechanics. continued support. nebs. Gastrointestinal: ogt adjusted. sup. tf. Renal/Metabolic: diuretics Infectious Disease: no abx needs. Hematology: stable. hsq Endocrine: solumedrol taper. Musculoskeletal: bedrest; skin precautions. oob soon Psych/Social: will look to met with family today. palliative/spiritual support if family desires. Supportive and preventative care as ordered. SUP: ppi VTE prophylaxis: heparin Villaseñor catheter given critical illness, monitoring needs for accurate assessment of STEPHANIA and KDIGO criteria for critically ill patients and to avoid potential harms of urinary retention, skin breakdown/ulcers. Disposition: ICU Code Status: Full Critical Care Time: 35min Yared Damon DO
[2016-11-12] MEDS ORDERED: HYDROmorphone* 2 MG/ML 1 ML SYR IV SLOW PU ONE (11:01)
[2016-11-12] MEDS: Nicotine PATCH 21 MG/24 HR* PATCH TRANSDERM SCH (11:18)
[2016-11-12] MEDS: Senna TAB G TUBE SCH (11:27)
[2016-11-12] MEDS: acetaZOLAMIDE VIAL* 250 MG in NS 0.9% 50 ML* 50 ML IVPB SCH ×2 (11:27→20:36)
[2016-11-12] MEDS: Furosemide IV* 10 MG/ML VIAL (40 MG) IV SLOW PU SCH ×2 (11:27→17:16)
[2016-11-12] MEDS: Dexmedetomidine* 50 ML IVPB SCH ×2 (11:43→13:40)
[2016-11-12] MEDS ORDERED: Thiamine IV* 100 MG/ML 2 ML VIAL IV ONE (12:26)
--- NOTE | 2016-11-12 14:24 | PN ---
Progress Note - Progress Note Note: CRITICAL CARE MEDICINE PROCEDURE NOTE DATE: 11/12/16 TIME: 1430 SERVICE: Critical Care Medicine LOCATION OF PROCEDURE: ICU PROCEDURE: Endotracheal intubation/ETT exchange due to cuff leak PROCEDURALIST: Dr. Damon Consent obtain: No, procedure performed emergently Time out held: Not indicated INDICATION: Post arrest intubation in the field with intermittent cuff leak ongoing. No anticipated extubation for at least another 48h and therefore ett exhange performed. PROCEDURE: Oxygenation maintained and vitals monitored. Patient in supine position. Pre-medication with fentanyl & propofol gtts already. Exchange via bougie. 8.5 endotracheal tube inserted to 25cm lip. Good chest rise with breath sounds appreciated in bilaterally lung lauren. EtCO2 + color change. Portable chest x-ray pending. Patient otherwise tolerated well. Sister present throughout. Yared Damon DO
[2016-11-12] MEDS: fentaNYL PCA* 20 ML PCA SCH (15:10)
--- NOTE | 2016-11-12 15:38 | RAD ---
INDICATION: Repeat intubation. Evaluate ET tube COMPARISON: November 12, 2016 TECHNIQUE: An AP portable view obtained at 1500 hours is submitted. FINDINGS: Bones/Soft Tissues: There are no acute bony findings. There is an endotracheal tube 4 cm above the amrshal. An orogastric tube passes normally through the mediastinum. There is a right-sided PICC catheter terminating in the superior vena cava. There are overlying chest leads. Cardiomediastinal: The cardiomediastinal silhouette is normal. Lungs: The visualized lung lauren are clear. The left costophrenic angle is not included in the [id number]. Pleura: There are no pleural effusions. Other: None IMPRESSION: ENDOTRACHEAL TUBE IN PROPER POSITION.
[2016-11-12] MEDS: Albuterol/Ipratropium NEB.SOL* Albuterol 2.5 MG/Ipratropium 0.5 MG 3 ML INH SCH ×2 (17:48→23:30)
[2016-11-12] MEDS: Nicotine Patch Removal NOTE PATCH OFF SCH (20:37)
[2016-11-13] MEDS: Acetaminophen ADULT LIQ* 650 MG/20.3 ML UDC G TUBE PRN (01:36)
[2016-11-13] MEDS ORDERED: LORazepam INJ* 2 MG/ML 1 ML VIAL IV PUSH ONE ×2 (03:00→09:44)
[2016-11-13] MEDS: Propofol* 100 ML IV SCH ×7 (03:21→22:24)
[2016-11-13] MEDS: Albuterol/Ipratropium NEB.SOL* Albuterol 2.5 MG/Ipratropium 0.5 MG 3 ML INH SCH ×9 (03:45→23:17)
[2016-11-13] MEDS: Chlorhexidine MOUTHWASH 0.12%* 15 ML UDC TOPICAL SCH ×5 (04:34→19:46)
[2016-11-13 05:11] LABS: BUN/Creatinine Ratio 42.6 (8-20); Calcium 8.8 mg/dL (8.6-10.3); EGFR African American 156.9 (>60); Magnesium 2.1 mg/dL (1.9-2.7); Phosphorus 3.8 mg/dL (2.5-5.0); Potassium 3.5 mmol/L (3.5-5.0)
[2016-11-13] MEDS: Heparin VIAL(*) 5000 UNITS/ML VIAL (FIVE THOUSAND) SUBCUT SCH ×3 (06:01→21:42)
[2016-11-13] MEDS: Furosemide IV* 10 MG/ML VIAL (40 MG) IV SLOW PU SCH (08:53)
[2016-11-13] MEDS: Lansoprazole susp Kit 3 MG/ML (30 MG = 10 ML) G TUBE SCH (08:53)
[2016-11-13] MEDS: Senna TAB G TUBE SCH (08:54)
[2016-11-13] MEDS: methylPREDNISolone SOD 40 MG* 1 ML VIAL IV SCH (08:54)
[2016-11-13] MEDS: fentaNYL PCA* 20 ML PCA SCH (08:57)
[2016-11-13] MEDS: Potassium Acid Phosphate TAB* 500 MG G TUBE SCH ×2 (08:57→20:55)
[2016-11-13] MEDS: acetaZOLAMIDE VIAL* 250 MG in NS 0.9% 50 ML* 50 ML IVPB SCH (08:57)
[2016-11-13] MEDS: Nicotine PATCH 21 MG/24 HR* PATCH TRANSDERM SCH (09:24)
[2016-11-13] MEDS ORDERED: Sodium Chloride 3% HYPERTONIC* 500 ML IVPB ONE (09:32)
[2016-11-13] MEDS ORDERED: Potassium Chloride LIQUID* 20 MEQ PACKET G TUBE ONE ×2 (10:00→17:00)
--- NOTE | 2016-11-13 10:00 | PN ---
Progress Note - Progress Note Note: CRITICAL CARE MEDICINE Date: 11/13/16 Time: 924 SUBJECTIVE: Patient seen and examined. overnight events reviewed. PHYSICAL EXAM: Vital Signs: Reviewed. Neurologic: awake, follows simpole commands when off prop. roving eye motion at times. upward gaze preference. localizing quicker to pain still. HEENT: Sclera less injected and conjunctival edema better. Trachea midline. ett stable. Cardiovascular: S1 S2 Respiratory: distant, better with aprv and 8.5 ett. Abdomen: Soft, nt, obese Extremities: Warm. +edema macular rash back - ?post sulfa Access: Picc LABS: Reviewed. IMAGING: Reviewed. MEDICATIONS: Reviewed. ASSESSMENT: 51 M OHCA - asystole. ~20min downtime Acute cerebral edema Acute on chronic hypoxic and hypercardic resp failure Lactic acidosis on admission COPD Anoxic josé injury Tobacco abuse ongoing Chronic pain ailments on metadone previously PLAN: Neurologic: neuro status waxing and waning a bit. doubt seizure activity overnight but certainly has hypoxic encephalopathy ongoing. Still question vitamin def and any withdrawal ailments. place on low dose benzos atc and already on fent gtt with adequate pain control it seems. dec proip with these. added nicotine td yesterday. Will d/w family timing for MRI/EEG to help prognostics. Support and time. Cardiovascular: Perfusing. vol status up but great mobilization with diuretics yesterday. but given sulfra rash appearance will dc diuretics today and f/u clinically. Respiratory: APRV today with spont breaths as able with less sedation. continued support. nebs. Gastrointestinal: ogt. sup. tf. Renal/Metabolic: diuretics held. Infectious Disease: no abx needs. Hematology: stable. hsq Endocrine: solumedrol taper to prednisone. Musculoskeletal: bedrest still given ms; skin precautions. Psych/Social: family trying to arrange for family members to meet with me tomorrow. palliative/spiritual support if family desires. Supportive and preventative care as ordered. SUP: ppi VTE prophylaxis: heparin Villaseñor catheter given critical illness, monitoring needs for accurate assessment of STEPHANIA and KDIGO criteria for critically ill patients and to avoid potential harms of urinary retention, skin breakdown/ulcers. Disposition: ICU Code Status: Full Critical Care Time: 36min Yared Damon DO
[2016-11-13] MEDS: predniSONE TAB* 20 MG G TUBE SCH (10:26)
[2016-11-13] MEDS: Thiamine TAB* 100 MG TAB G TUBE SCH (10:26)
[2016-11-13] MEDS: Oxazepam CAP* 10 MG G TUBE SCH ×2 (10:36→17:56)
[2016-11-13] MEDS: Artificial Tears* 15 ML BTL BOTH EYES PRN (13:27)
[2016-11-13] MEDS: Nicotine Patch Removal NOTE PATCH OFF SCH (21:00)
[2016-11-14] MEDS: Artificial Tears* 15 ML BTL BOTH EYES PRN ×3 (00:03→10:36)
[2016-11-14] MEDS: Chlorhexidine MOUTHWASH 0.12%* 15 ML UDC TOPICAL SCH ×6 (00:03→20:00)
[2016-11-14] MEDS: Propofol* 100 ML IV SCH ×7 (01:13→19:16)
[2016-11-14] MEDS: fentaNYL PCA* 20 ML PCA SCH ×2 (01:59→20:26)
[2016-11-14] MEDS: Oxazepam CAP* 10 MG G TUBE SCH ×3 (01:59→18:55)
--- NOTE | 2016-11-14 02:47 | EEG ---
ELECTROENCEPHALOGRAPHY: DATE OF STUDY: DATE OF DICTATION: 11/13/16 PATIENT OF: Dr. Damon. HISTORY: This is a 51-year-old man status post cardiac arrest on 11/09/16. He is intubated and sedated with propofol, fentanyl and Ativan. MEDICATIONS: Include: 1. Heparin. 2. Oxazepam. 3. Potassium. 4. Lansoprazole. 5. Fentanyl 6. Lactulose. 7. Propofol. 8. Acetazolamide. 9. Furosemide. 10. Ativan. 10. Methylprednisolone. REPORT: Interpretation with the patient intubated and sedated, background consists of admixed 7 to 8 Hz rhythm with some slower theta range frequencies. There is some frontal alpha activity that reaches 10 Hz in frequency. No focal abnormalities, major asymmetries of background are noted. No epileptiform potentials here present. CLINICAL IMPRESSION: This EEG with patient intubated and sedated shows no epileptiform potentials. The slowing of background may be secondary to the patient's medication at this point but underlying encephalopathy due to the arrest may also be contributing. [id number]/[facility] #: [id number] [facility]
[2016-11-14] MEDS: Albuterol/Ipratropium NEB.SOL* Albuterol 2.5 MG/Ipratropium 0.5 MG 3 ML INH SCH ×5 (04:02→19:46)
[2016-11-14] MEDS: Heparin VIAL(*) 5000 UNITS/ML VIAL (FIVE THOUSAND) SUBCUT SCH ×3 (05:41→21:02)
[2016-11-14] MEDS ORDERED: Alteplase (CATHFLO)* 2 MG VIAL IV ONE (09:51)
[2016-11-14] MEDS: Nicotine PATCH 21 MG/24 HR* PATCH TRANSDERM SCH (10:17)
[2016-11-14] MEDS: predniSONE TAB* 20 MG G TUBE SCH (10:31)
[2016-11-14] MEDS: Thiamine TAB* 100 MG TAB G TUBE SCH (10:31)
[2016-11-14] MEDS: Senna TAB G TUBE SCH (10:31)
[2016-11-14] MEDS: Lansoprazole susp Kit 3 MG/ML (30 MG = 10 ML) G TUBE SCH (10:32)
--- NOTE | 2016-11-14 10:50 | PN ---
Progress Note - Progress Note Note: CRITICAL CARE MEDICINE Date: 11/14/16 Time: 855 SUBJECTIVE: Patient seen and examined. PHYSICAL EXAM: Vital Signs: Reviewed. Neurologic: awake, follows simple commands still when off prop. upward gaze preference. still localizing quicker to pain. HEENT: Sclera less injected and conjunctival edema all improving. Trachea midline. ett stable. Cardiovascular: S1 S2 Respiratory: distant, better. more spont. Abdomen: Soft, nt, obese. no bm yet Extremities: Warm. +edema; macular rash in evolution Access: Picc not flushing LABS: Reviewed. IMAGING: Reviewed. MEDICATIONS: Reviewed. ASSESSMENT: 51 M OHCA - asystole. ~20min downtime Acute cerebral edema Acute on chronic hypoxic and hypercardic resp failure Lactic acidosis on admission COPD Anoxic josé injury Tobacco abuse ongoing Chronic pain ailments on metadone previously Constipation Macular rash - ?post sulfa PLAN: Neurologic: neuro status still waxing and waning but does follow commands. Worried about signifincant hypoxic encephalopathy nonetheless. Will d/w family obtaining MRI to help with px. keep meds as is. EEG no surprise. time. Cardiovascular: Perfusing. vol status ok. Respiratory: APRV today with spont breath increased and will try to stretch further. nebs. Gastrointestinal: ogt. sup. tf. Renal/Metabolic: check bmp Infectious Disease: no abx needs. Hematology: stable. hsq Endocrine: prednisone. Musculoskeletal: bedrest given ms; skin precautions. Psych/Social: Hopeful family meeting today. palliative/spiritual support if family desires. Supportive and preventative care as ordered. SUP: ppi VTE prophylaxis: heparin Villaseñor catheter given critical illness, monitoring needs for accurate assessment of STEPHANIA and KDIGO criteria for critically ill patients and to avoid potential harms of urinary retention, skin breakdown/ulcers. Disposition: ICU Code Status: Full Critical Care Time: 35min Yared Damon DO
[2016-11-14 11:04] LABS: BUN/Creatinine Ratio 41.3 (8-20); Calcium 8.9 mg/dL (8.6-10.3); EGFR African American 171.3 (>60); EGFR Non-African American 133.2 (>60); Potassium 3.6 mmol/L (3.5-5.0)
--- NOTE | 2016-11-14 11:39 | PN ---
Progress Note - Progress Note Note: CRITICAL CARE MEDICINE Date: 11/14/16 Time: 1100 D/w pts sister at bedside. We discussed his overall dynamics and concerns. plan for MRI and consideration to look towards liberation from vent Fri/Sat but as a DNR/DNI as no one believes pt would desire to stay vent dependent. She will d/w other family members to ensure all are in agreement as she may become decision maker by de facto. Disposition: ICU Code Status: Full currently Critical Care Time: 15min Yared Damon DO
[2016-11-14] MEDS ORDERED: Potassium Chloride LIQUID* 20 MEQ PACKET G TUBE ONE (12:32)
--- NOTE | 2016-11-14 18:37 | RAD ---
Indication: Cardiac arrest. Anoxic Brain injury. Comparison: November 11, 2016 CT and May 13, 2015 MRI. Technique: Cuffed and Wanteda 1.5 Stephanie [id number] with GEM suite. MRI brain without contrast. Report: Diffusion series is negative for acute or subacute ischemia. Susceptibility series is negative for stigmata of hemosiderin deposition to indicate previous hemorrhage. Unremarkable cerebral sulci, ventricles, and basal cisterns. Minimal symmetric increased T2 signal in the periventricular white matter of the cerebral hemispheres. 0.7 cm maximum dimension chronic lacunar infarct or variant dilated perivascular space at the inferior RIGHT basal ganglia without change compared with the 2015 exam. No suspicious intracranial extra-axial fluid collection, lesions, or mass effect. Preserved major intracranial flow-voids. Unremarkable orbital contents. Unremarkable calvarium, skull base, paranasal sinuses, and mastoid air spaces. IMPRESSION: 1. No acute intracranial process evident. 2. Stigmata of probable mild chronic small vessel ischemic disease. 3. 0.7 cm maximum dimension chronic lacunar infarct or variant dilated perivascular space at the inferior RIGHT basal ganglia without change compared with the 2015 exam.
[2016-11-14] MEDS: Nicotine Patch Removal NOTE PATCH OFF SCH (21:02)
[2016-11-15] MEDS: Chlorhexidine MOUTHWASH 0.12%* 15 ML UDC TOPICAL SCH ×6 (00:02→19:46)
[2016-11-15] MEDS: Albuterol/Ipratropium NEB.SOL* Albuterol 2.5 MG/Ipratropium 0.5 MG 3 ML INH SCH ×7 (00:05→23:12)
[2016-11-15] MEDS: Oxazepam CAP* 10 MG G TUBE SCH ×2 (02:18→09:21)
[2016-11-15] MEDS: fentaNYL* 50 MCG/ML 2 ML VIAL (100 MCG VIAL) IV SLOW PU PRN (04:09)
[2016-11-15] MEDS: Propofol* 100 ML IV SCH ×9 (04:20→22:37)
[2016-11-15] MEDS: Heparin VIAL(*) 5000 UNITS/ML VIAL (FIVE THOUSAND) SUBCUT SCH ×3 (05:30→21:16)
[2016-11-15 06:15] LABS: Comments Flag Yes; Hematocrit 40 % (42-52); Hemoglobin 12.1 g/dl (14.0-18.0); Mean Corpuscular HGB Conc 31 g/dl (31-36); Mean Corpuscular Hemoglobin 26 pg (27-31); Mean Corpuscular Volume 86 fL (80-94); Mean Platelet Volume 8 um3 (7.4-10.4); Red Blood Count 4.57 10^6/ul (4.0-5.4); Red Cell Distribution Width 18 % (10.5-15); White Blood Count 8.4 10^3/ul (3.5-10.8)
[2016-11-15 06:33] LABS: BUN/Creatinine Ratio 38.3 (8-20); Calcium 8.7 mg/dL (8.6-10.3); EGFR African American 181.3 (>60); EGFR Non-African American 140.9 (>60); Magnesium 2.3 mg/dL (1.9-2.7); Phosphorus 3.3 mg/dL (2.5-5.0); Potassium 3.8 mmol/L (3.5-5.0); Total Bilirubin 0.6 mg/dL (0.2-1.0)
[2016-11-15] MEDS: Lansoprazole susp Kit 3 MG/ML (30 MG = 10 ML) G TUBE SCH (09:20)
[2016-11-15] MEDS: Nicotine PATCH 21 MG/24 HR* PATCH TRANSDERM SCH (09:21)
[2016-11-15] MEDS: Thiamine TAB* 100 MG TAB G TUBE SCH (09:21)
[2016-11-15] MEDS: predniSONE TAB* 20 MG G TUBE SCH (09:21)
[2016-11-15] MEDS: Senna TAB G TUBE SCH (09:21)
[2016-11-15] MEDS ORDERED: Polyethylene Glycol 3350* 17 GM PACKET PO ONE (10:00)
--- NOTE | 2016-11-15 10:24 | PN ---
Progress Note - Progress Note Note: CRITICAL CARE MEDICINE Date: 11/15/16 Time: 915 SUBJECTIVE: Patient seen and examined. PHYSICAL EXAM: Vital Signs: Reviewed. Neurologic: awake, follows simple commands still. less upward gaze preference HEENT: Perrl, less dilated. Trachea midline. ett stable. Cardiovascular: S1 S2 Respiratory: distant, better. more spont. Abdomen: Soft, nt, obese. min bm Extremities: Warm. +edema better Access: Picc LABS: Reviewed. IMAGING: Reviewed. MEDICATIONS: Reviewed. ASSESSMENT: 51 M OHCA - asystole. ~20min downtime Acute cerebral edema Acute on chronic hypoxic and hypercardic resp failure Lactic acidosis on admission COPD Anoxic josé injury Tobacco abuse ongoing Chronic pain ailments on metadone previously Constipation Macular rash - ?post sulfa - improved PLAN: Neurologic: neuro status with perhaps still some mild improvement and may still have improvement potentials. MRI not overly dramatic. Cardiovascular: Perfusing. vol status ok. Has mobilized on his own and no diuretic needs. Respiratory: high level cpap today given peep needs. fio2 30%. will look towards liberation tomorrow or sat as dni and see if we can support him through this. Gastrointestinal: ogt. sup. tf. inc bowel regimen again today Renal/Metabolic: stable. Infectious Disease: no abx needs. Hematology: stable. hsq Endocrine: prednisone continued. Musculoskeletal: sitting up and dangle today; skin precautions. Psych/Social: will d/w pts sister again today Supportive and preventative care as ordered. SUP: ppi VTE prophylaxis: heparin Villaseñor catheter given critical illness, monitoring needs for accurate assessment of STEPHANIA and KDIGO criteria for critically ill patients and to avoid potential harms of urinary retention, skin breakdown/ulcers. Disposition: ICU Code Status: Full Critical Care Time: 35min Yared Damon DO
[2016-11-15] MEDS: fentaNYL PATCH 25 MCG/HR TRANSDERM SCH (13:34)
[2016-11-15] MEDS: fentaNYL PCA* 20 ML PCA SCH (13:36)
[2016-11-15] MEDS: fentaNYL Patch Check Q Shift 1 NOTE SCH ×2 (15:30→19:05)
[2016-11-15] MEDS ORDERED: Oxazepam CAP* 10 MG G TUBE PRN (18:00)
[2016-11-15] MEDS: Nicotine Patch Removal NOTE PATCH OFF SCH (21:03)
[2016-11-15] MEDS: Artificial Tears* 15 ML BTL BOTH EYES PRN (21:06)
[2016-11-16] MEDS: Chlorhexidine MOUTHWASH 0.12%* 15 ML UDC TOPICAL SCH ×4 (00:22→12:16)
[2016-11-16] MEDS: Propofol* 100 ML IV SCH ×4 (00:22→09:33)
[2016-11-16] MEDS: Albuterol/Ipratropium NEB.SOL* Albuterol 2.5 MG/Ipratropium 0.5 MG 3 ML INH SCH ×6 (03:32→23:41)
[2016-11-16] MEDS: Heparin VIAL(*) 5000 UNITS/ML VIAL (FIVE THOUSAND) SUBCUT SCH ×3 (05:52→21:34)
[2016-11-16] MEDS: fentaNYL Patch Check Q Shift 1 NOTE SCH ×2 (07:09→19:19)
[2016-11-16] MEDS ORDERED: fentaNYL PCA* 20 ML ONE (07:16)
[2016-11-16] MEDS: fentaNYL PCA* 20 ML PCA SCH (07:18)
[2016-11-16] MEDS: Nicotine PATCH 21 MG/24 HR* PATCH TRANSDERM SCH (09:10)
[2016-11-16] MEDS: Senna TAB G TUBE SCH (09:11)
[2016-11-16] MEDS: predniSONE TAB* 20 MG G TUBE SCH (09:11)
[2016-11-16] MEDS: Thiamine TAB* 100 MG TAB G TUBE SCH (09:11)
--- NOTE | 2016-11-16 10:44 | PN ---
Progress Note - Progress Note Note: CRITICAL CARE MEDICINE Date: 11/16/16 Time: 1020 SUBJECTIVE: Patient seen and examined. PHYSICAL EXAM: Vital Signs: Reviewed. Neurologic: awake, follows commands still. less gaze preference HEENT: Perrl, still dilated. Trachea midline. ett stable. Cardiovascular: S1 S2 Respiratory: distant, better. cpap 14/10 Abdomen: Soft, nt, obese. min bm Extremities: Warm. +edema better Access: Picc LABS: Reviewed. IMAGING: Reviewed. MEDICATIONS: Reviewed. ASSESSMENT: 51 M OHCA - asystole. ~20min downtime Acute cerebral edema Acute on chronic hypoxic and hypercardic resp failure Lactic acidosis on admission COPD Anoxic josé injury Tobacco abuse ongoing Chronic pain ailments on metadone previously Constipation Macular rash - ?post sulfa - improved PLAN: Neurologic: neuro status still probably to improve a bit more. vitamin suppl and time. Cardiovascular: Perfusing. vol status ok. Respiratory: high level cpap and liberate today to HFo2. will address bipap needs (at least nocturnally) from there. Gastrointestinal: ogt. sup. tf held. f/u mobility and bowel regimen. Renal/Metabolic: stable. Infectious Disease: no abx needs. Hematology: stable. hsq Endocrine: prednisone taper. Musculoskeletal: inc mobility. pt eval. skin precautions. Psych/Social: will d/w pts sister again today Supportive and preventative care as ordered. SUP: ppi VTE prophylaxis: heparin Villaseñor catheter given critical illness, monitoring needs for accurate assessment of STEPHANIA and KDIGO criteria for critically ill patients and to avoid potential harms of urinary retention, skin breakdown/ulcers. Disposition: ICU Code Status: Full Critical Care Time: 35min FRosalee Damon DO
[2016-11-16] MEDS ORDERED: LORazepam INJ* 2 MG/ML 1 ML VIAL ONE (11:00)
[2016-11-16] MEDS ORDERED: LORazepam INJ* 2 MG/ML 1 ML VIAL IV PUSH ONE (11:40)
[2016-11-16] MEDS ORDERED: Metoprolol Tartrate IV* 1 MG/ML 5 ML VIAL ONE (11:43)
[2016-11-16] MEDS ORDERED: Metoprolol Tartrate IV* 1 MG/ML 5 ML VIAL IV ONE (12:00)
[2016-11-16] MEDS ORDERED: Dexmedetomidine* 50 ML ONE (13:12)
[2016-11-16] MEDS: Dexmedetomidine* 50 ML IVPB SCH ×6 (13:13→23:49)
[2016-11-16] MEDS: Lansoprazole susp Kit 3 MG/ML (30 MG = 10 ML) G TUBE SCH (13:22)
--- NOTE | 2016-11-16 14:21 | PN ---
Progress Note - Progress Note Note: CRITICAL CARE MEDICINE Date: 11/17/16 Time: 1400 Tolerating ok post liberation. RR mid 20s. still with considerable delirium. See if he can ride on bipap for an hour to alleviate some wob a bit and see if he can wear it nocturnally tonight. Trialling precedex. Disposition: ICU Code Status: Full Critical Care Time: 15min FRosalee Damon DO
[2016-11-16] MEDS: Potassium Acid Phosphate TAB* 500 MG G TUBE SCH (15:58)
[2016-11-16] MEDS: Nicotine Patch Removal NOTE PATCH OFF SCH (21:06)
[2016-11-17] MEDS: Dexmedetomidine* 50 ML IVPB SCH ×7 (02:00→15:56)
[2016-11-17] MEDS: Albuterol/Ipratropium NEB.SOL* Albuterol 2.5 MG/Ipratropium 0.5 MG 3 ML INH SCH ×6 (05:02→23:26)
[2016-11-17] MEDS: methylPREDNISolone SOD 40 MG* 1 ML VIAL IV SCH ×2 (05:22→16:53)
[2016-11-17] MEDS: Heparin VIAL(*) 5000 UNITS/ML VIAL (FIVE THOUSAND) SUBCUT SCH ×3 (05:22→22:09)
[2016-11-17 06:18] LABS: BUN/Creatinine Ratio 33.3 (8-20); EGFR African American 218.6 (>60); Phosphorus 2.8 mg/dL (2.5-5.0); Potassium 3.8 mmol/L (3.5-5.0)
[2016-11-17] MEDS: fentaNYL Patch Check Q Shift 1 NOTE SCH ×2 (07:26→19:01)
[2016-11-17] MEDS: Thiamine TAB* 100 MG TAB G TUBE SCH (09:55)
[2016-11-17] MEDS: Senna TAB G TUBE SCH (09:55)
[2016-11-17] MEDS: Nicotine PATCH 21 MG/24 HR* PATCH TRANSDERM SCH (09:59)
--- NOTE | 2016-11-17 10:47 | PN ---
Progress Note - Progress Note Note: CRITICAL CARE MEDICINE Date: 11/17/16 Time: 900 SUBJECTIVE: Patient seen and examined. PHYSICAL EXAM: vapotx 40lpm 80%, on precedex. hr 80s Vital Signs: Reviewed. Neurologic: awake, follows commands. attempting improved communication but voice weak. HEENT: Perrl. Trachea midline. Cardiovascular: S1 S2 Respiratory: distant, rhonchi R>L Abdomen: Soft, nt, obese. Extremities: Warm. + dep edema Access: Picc LABS: Reviewed. IMAGING: Reviewed. MEDICATIONS: Reviewed. ASSESSMENT: 51 M OHCA - asystole. ~20min downtime Acute cerebral edema Acute on chronic hypoxic and hypercardic resp failure Lactic acidosis on admission COPD Anoxic josé injury Tobacco abuse ongoing Chronic pain ailments on metadone previously Constipation Macular rash - resolved PLAN: Neurologic: neuro status still hopefully slowly improving. less rx. vitamin suppl and time. Cardiovascular: Perfusing. vol status ok. Respiratory: leny bipap overnight and would utilize yet again tonight. metaneb q4 during the day. pulm lenyiet as able. copd adjunctives. Gastrointestinal: wait another day until testing for po until hopefully both mental status and resp status improve a little more. If unable to have somewhat adequete intake come Saturday then we may need ngt for tf. f/u for bms Renal/Metabolic: stable. Infectious Disease: no abx needs. Hematology: stable. hsq Endocrine: prednisone taper to soulmedrol today with npo. Musculoskeletal: inc mobility. pt eval. skin precautions. Psych/Social: family up to date Supportive and preventative care as ordered. SUP: ppi VTE prophylaxis: heparin Villaseñor catheter given critical illness, monitoring needs for accurate assessment of STEPHANIA and KDIGO criteria for critically ill patients and to avoid potential harms of urinary retention, skin breakdown/ulcers. Disposition: ICU Code Status: Full Critical Care Time: 30min FRosalee Damon DO
[2016-11-17] MEDS ORDERED: cloNIDine 0.2 MG PATCH* 0.2 MG/24 HR 7 DAY PATCH TRANSDERM SCH (13:00)
[2016-11-17] MEDS: Ziprasidone IM INJ* 20 MG/ML VIAL IM PRN ×2 (13:02→21:15)
[2016-11-17] MEDS: LORazepam INJ* 2 MG/ML 1 ML VIAL IV PUSH PRN ×3 (13:10→20:55)
[2016-11-17] MEDS ORDERED: DEXMEDETOMIDINE IVPB SCH (18:30)
[2016-11-17] MEDS ORDERED: NS 0.9% IVPB SCH (18:30)
[2016-11-17] MEDS ORDERED: Dexmedetomidine* 200 MCG in NS 0.9% 50 ML* 48 ML IVPB SCH ×2 (18:35→19:00)
[2016-11-17] MEDS: Dexmedetomidine* 200 MCG in NS 0.9% 50 ML* 48 ML IVPB SCH ×2 (20:27→22:35)
[2016-11-17] MEDS: Nicotine Patch Removal NOTE PATCH OFF SCH (20:44)
[2016-11-18] MEDS: Dexmedetomidine* 200 MCG in NS 0.9% 50 ML* 48 ML IVPB SCH ×4 (00:54→07:03)
[2016-11-18] MEDS: Albuterol/Ipratropium NEB.SOL* Albuterol 2.5 MG/Ipratropium 0.5 MG 3 ML INH SCH ×6 (04:07→23:46)
[2016-11-18] MEDS: LORazepam INJ* 2 MG/ML 1 ML VIAL IV PUSH PRN ×3 (04:15→17:37)
[2016-11-18] MEDS: Ziprasidone IM INJ* 20 MG/ML VIAL IM PRN (05:20)
[2016-11-18] MEDS: Heparin VIAL(*) 5000 UNITS/ML VIAL (FIVE THOUSAND) SUBCUT SCH ×3 (05:33→21:14)
[2016-11-18] MEDS: methylPREDNISolone SOD 40 MG* 1 ML VIAL IV SCH ×2 (05:33→17:37)
[2016-11-18] MEDS: fentaNYL Patch Check Q Shift 1 NOTE SCH ×2 (07:05→19:04)
[2016-11-18] MEDS: Thiamine TAB* 100 MG TAB G TUBE SCH (08:16)
[2016-11-18] MEDS: Senna TAB G TUBE SCH (08:16)
[2016-11-18] MEDS: Nicotine PATCH 21 MG/24 HR* PATCH TRANSDERM SCH (08:41)
[2016-11-18] MEDS ORDERED: Dexmedetomidine* 200 MCG in NS 0.9% 50 ML* 48 ML IVPB SCH (09:00)
[2016-11-18] MEDS ORDERED: Morphine INJ* 4 MG/ML 1 ML SYRINGE IV ONE (09:17)
[2016-11-18] MEDS ORDERED: Morphine INJ* 4 MG/ML 1 ML SYRINGE ONE (09:22)
[2016-11-18] MEDS ORDERED: Furosemide IV* 10 MG/ML VIAL (40 MG) IV SLOW PU ONE (09:32)
--- NOTE | 2016-11-18 09:44 | RAD ---
INDICATION: Decreased oxygen saturation. COMPARISON: Comparison is made with prior chest x-ray studies from November 11, 2016 and November 12, 2016. TECHNIQUE: A portable view of the chest was obtained. FINDINGS: The heart is enlarged and unchanged. The lungs are underinflated. There is a new relatively dense infiltrate present in the mid and left lower lung field which appears to be associated with a pleural effusion. The right lung appears clear. IMPRESSION: NEW LEFT LUNG INFILTRATE MOST CONSISTENT WITH PNEUMONIA.
[2016-11-18] MEDS: Piperac/Tazob 3.375 gm in NS* 3.375 GM/100 ML BAG IVPB SCH ×2 (10:05→17:37)
[2016-11-18 10:23] LABS: Hematocrit 51 % (42-52); Hemoglobin 15.5 g/dl (14.0-18.0); Mean Corpuscular HGB Conc 31 g/dl (31-36); Mean Corpuscular Hemoglobin 26 pg (27-31); Mean Corpuscular Volume 85 fL (80-94); Mean Platelet Volume 8 um3 (7.4-10.4); Red Blood Count 5.95 10^6/ul (4.0-5.4); Red Cell Distribution Width 18 % (10.5-15); White Blood Count 10.8 10^3/ul (3.5-10.8)
[2016-11-18 10:25] LABS: Add Diff/Slide Review? Slide Review Added; Comments Flag Yes
[2016-11-18] MEDS ORDERED: fentaNYL* 50 MCG/ML 2 ML VIAL (100 MCG VIAL) IV SLOW PU ONE (10:28)
[2016-11-18] MEDS ORDERED: fentaNYL* 50 MCG/ML 2 ML VIAL (100 MCG VIAL) ONE (10:30)
[2016-11-18] MEDS ORDERED: Propofol* 200 ML ONE (10:30)
[2016-11-18 10:39] LABS: BUN/Creatinine Ratio 42.6 (8-20); Calcium 9.9 mg/dL (8.6-10.3); EGFR African American 177.8 (>60); EGFR Non-African American 138.3 (>60); Magnesium 2.1 mg/dL (1.9-2.7); Phosphorus 3.8 mg/dL (2.5-5.0); Potassium 4.3 mmol/L (3.5-5.0)
[2016-11-18] MEDS: Propofol* 10 MG/ML 20 ML BTL IV PUSH ONE ×2 (10:40→10:50)
[2016-11-18] MEDS: Propofol* 100 ML IV SCH ×6 (10:40→21:23)
[2016-11-18] MEDS ORDERED: Propofol* 10 MG/ML 20 ML BTL IV PUSH ONE (10:55)
--- NOTE | 2016-11-18 11:05 | PN ---
Progress Note - Progress Note Note: CRITICAL CARE MEDICINE Date: 11/18/16 Time: 900 SUBJECTIVE: Patient seen and examined. Desat this am post bipap. PHYSICAL EXAM: vapotx 40 lpm 100%, on precedex but hr 130s Vital Signs: Reviewed. Neurologic: awake, follows commands. HEENT: Perrl. Trachea midline. Cardiovascular: S1 S2 Respiratory: distant, paradocial resp pattern new with very poor excursion on the left without wheeze btu with b/l rhonchi Abdomen: Soft, nt, obese. Extremities: Warm. + dep edema; R ankle ecchymosis in evolution. Access: Pivs LABS: Reviewed. IMAGING: Reviewed. MEDICATIONS: Reviewed. ASSESSMENT: 51 M OHCA - asystole. ~20min downtime Acute cerebral edema Acute on chronic hypoxic and hypercardic resp failure - extubated 11/16, but now requiring reintubation 11/16 Lactic acidosis on admission COPD Anoxic josé injury Tobacco abuse ongoing Chronic pain ailments on metadone previously Constipation Macular rash - resolved Aspiration pneumonitis PLAN: Neurologic: neuro status was still very slowly improving. precedex without much affect. can dc. will need sedation with intubation today. Cardiovascular: Perfusing. little interstially wet and intravascular dry perhaps. Trial lasix to mobilize. Respiratory: unfortunately he is clearly aspirating into the left lung without adequete secretion clearance. no wbc, nor fever and doubt new bacterial infection but potential. Nonetheless he is not going to be able to maintain with current dynamics and needs invasive ppv if we are going to re-expanded that left. d/w mamta and we will proceed with intubation today. check trach aspirate. consider bronch. if ppv can improve him next 24-48h then hopeful to attempt liberation yet again, but this time certainly as a DNR/DNI. He does not have capacitance for this decision yet but she understands that is what he would want. copd adjunctives. Gastrointestinal: place ogt today. tf to resume. sup Renal/Metabolic: bun up with steroids and f/u for fluid mobilization. Infectious Disease: again, doubt infection starting his lung process however given his dyanmcis, will place on zosyn and f/u sputum cx. Hematology: stable. hsq Endocrine: solumedrol Musculoskeletal: inc mobility still. pt eval. skin precautions. Psych/Social: sister up to date Supportive and preventative care as ordered. SUP: ppi VTE prophylaxis: heparin Villaseñor catheter given critical illness, monitoring needs for accurate assessment of STEPHANIA and KDIGO criteria for critically ill patients and to avoid potential harms of urinary retention, skin breakdown/ulcers. Disposition: ICU Code Status: Full Critical Care Time: 35min, excl procedures FRosalee Damon DO
--- NOTE | 2016-11-18 11:07 | PN ---
Progress Note - Progress Note Note: CRITICAL CARE MEDICINE PROCEDURE NOTE DATE: 11/18/16 TIME: 1040 SERVICE: Critical Care Medicine LOCATION OF PROCEDURE: ICU PROCEDURE: Endotracheal intubation PROCEDURALIST: Dr. Damon Consent obtain: Yes Time out held: Not indicated INDICATION: Acute respiratory failure PROCEDURE: Oxygenation maintained and vitals monitored. Patient in supine position. Pre-medication with fentanyl 200mcg / propofol 300mg. Glidescope #4 inserted with Grade 1 view obtained. 8.5 endotracheal tube inserted to 25cm lip. Good chest rise with breath sounds appreciated in bilaterally lung lauren. EtCO2 + color change. Copious cream secretions. Portable chest x-ray pending. Patient otherwise tolerated well. Sister at bedside throughout. Yared Damon,
--- NOTE | 2016-11-18 12:15 | RAD ---
INDICATION: Status post intubation and orogastric tube placement. COMPARISON: Comparison is made with a prior study from approximately one and half hours ago. TECHNIQUE: A portable view of the chest was obtained. FINDINGS: The patient is status post intubation. The endotracheal tube projects over the midline. There is an orogastric tube present. The catheter tip projects in the left upper quadrant. The heart is within normal limits in size. The lungs are clear. There is interval resolution of the previously noted left lung infiltrate most consistent with interval resolution of left lower lobe collapse given the rapid change. IMPRESSION: STATUS POST INTUBATION AND OROGASTRIC TUBE PLACEMENT, INTERVAL RESOLUTION OF LEFT LUNG INFILTRATE.
[2016-11-18] MEDS: Chlorhexidine MOUTHWASH 0.12%* 15 ML UDC TOPICAL SCH ×4 (12:18→21:12)
[2016-11-18] MEDS: fentaNYL PATCH 25 MCG/HR TRANSDERM SCH (14:56)
[2016-11-18] MEDS: fentaNYL* 50 MCG/ML 2 ML VIAL (100 MCG VIAL) IV SLOW PU PRN (15:20)
[2016-11-18] MEDS: Acetaminophen ADULT LIQ* 650 MG/20.3 ML UDC G TUBE PRN (18:00)
[2016-11-18] MEDS: Nicotine Patch Removal NOTE PATCH OFF SCH (21:05)
[2016-11-18] MEDS ORDERED: Furosemide IV* 10 MG/ML 2 ML VIAL (20 MG) IV SLOW PU ONE (23:19)
[2016-11-19] MEDS: Propofol* 100 ML IV SCH ×12 (00:19→23:10)
[2016-11-19] MEDS: Chlorhexidine MOUTHWASH 0.12%* 15 ML UDC TOPICAL SCH ×6 (01:26→22:41)
[2016-11-19] MEDS: Piperac/Tazob 3.375 gm in NS* 3.375 GM/100 ML BAG IVPB SCH ×3 (01:39→17:56)
[2016-11-19] MEDS ORDERED: NS 0.9% 500 ML BAG* 500 ML IV ONE (02:00)
[2016-11-19] MEDS: Albuterol/Ipratropium NEB.SOL* Albuterol 2.5 MG/Ipratropium 0.5 MG 3 ML INH SCH ×5 (03:10→19:37)
[2016-11-19] MEDS: methylPREDNISolone SOD 40 MG* 1 ML VIAL IV SCH ×2 (05:22→17:56)
[2016-11-19] MEDS: Heparin VIAL(*) 5000 UNITS/ML VIAL (FIVE THOUSAND) SUBCUT SCH ×3 (05:22→22:41)
[2016-11-19 05:45] LABS: Venous Bicarbonate HCO3 26.7 mmol/L (24-28)
[2016-11-19 05:49] LABS: Hematocrit 47 % (42-52); Hemoglobin 14.3 g/dl (14.0-18.0); Mean Corpuscular HGB Conc 31 g/dl (31-36); Mean Corpuscular Hemoglobin 26 pg (27-31); Mean Corpuscular Volume 85 fL (80-94); Mean Platelet Volume 8 um3 (7.4-10.4); Red Cell Distribution Width 19 % (10.5-15); White Blood Count 14.9 10^3/ul (3.5-10.8)
[2016-11-19 05:50] LABS: Comments Flag Yes
[2016-11-19 06:09] LABS: Albumin 3.4 g/dL (3.2-5.2); BUN/Creatinine Ratio 21.6 (8-20); Calcium 9.5 mg/dL (8.6-10.3); EGFR Non-African American 30.3 (>60); Globulin 3.4 g/dL (2-4); Magnesium 2.3 mg/dL (1.9-2.7); Phosphorus 4.6 mg/dL (2.5-5.0); Potassium 4.1 mmol/L (3.5-5.0); Total Protein 6.8 g/dL (6.4-8.9)
[2016-11-19] MEDS: fentaNYL Patch Check Q Shift 1 NOTE SCH ×2 (07:16→19:05)
--- NOTE | 2016-11-19 10:17 | RAD ---
INDICATION: Aspiration. COMPARISON: Comparison is made with a prior study from November 18, 2016. TECHNIQUE: A portable view of the chest was obtained. FINDINGS: The patient is status post intubation. There is an endotracheal tube tip which projects over the midline. The catheter tip is located just below the level of the clavicular heads. There is a nasogastric tube which is faintly visualized. The catheter tip appears to project in the left upper quadrant. This appears to have been pulled back slightly from the prior study. The heart is within normal limits in size. Mediastinal contours appear to be within normal limits. The lungs are hyperinflated and clear. IMPRESSION: THE LUNGS ARE HYPERINFLATED AND CLEAR. STATUS POST INTUBATION AND FEEDING TUBE PLACEMENT.
[2016-11-19 10:18] LABS: FIO2 30
[2016-11-19 10:28] LABS: PCO2 Arterial 58 mmHg (35-45)
[2016-11-19] MEDS: Nicotine PATCH 21 MG/24 HR* PATCH TRANSDERM SCH (10:29)
[2016-11-19] MEDS: Senna TAB G TUBE SCH (10:30)
[2016-11-19] MEDS: Thiamine TAB* 100 MG TAB G TUBE SCH (10:30)
--- NOTE | 2016-11-19 10:58 | PN ---
Progress Note - Progress Note Note: Progress Note Critical Care 24 hour events/significant events: -reintubated 11/18 for respiratory distress/tachypnea; inability to clear secretions +/- aspiration -febrile 101.6 overnight; less tachycardic, BP stable off pressors -remains on vent with aprv -noted hypotension around the time of respiratory distress -no hypotension; minimal secretions suctioned from ett. Tele: NSR Vitals: i/o 2529/1525/+1004 over 24 hours Vital Signs Temp 99.7 F 11/19/16 07:00 Pulse 109 11/19/16 07:14 Resp 13 11/19/16 07:14 BP 145/85 11/19/16 07:00 Pulse Ox 97 11/19/16 07:14 Intake & Output 11/18/16 11/19/16 11/19/16 18:59 06:59 18:59 Intake Total 250 2279 Output Total 1250 275 Balance -1000 2004 Weight 285 lb 4.45 oz Intake: IV Fluids 126 627 ABX - ZOSYN 97 NS (0.9%) 126 530 IVPB 120 ABX - ZOSYN 120 Medicated IV 124 687 CC - Propofol/Diprivan 124 687 Oral 0 Tube Feeding 805 Tube Feeding Flush Amount 40 Output: Villaseñor 1250 275 Tube Feeding Residual 0 Amount Wasted O2/Vent: APRV, peak insp pr 30, low pr 0, 30%fio2; rr 13, sat 94%, TV 650 Infusions: propofol 60 Medications: Acetaminophen (Tylenol Adult Liq*) 650 mg G TUBE Q6H PRN PRN Reason: TEMP > 38.3 DEG C Last Admin: 11/18/16 18:00 Dose: 650 mg Albuterol/Ipratropium (Duoneb (Albuterol 2.5 Mg/Ipratropium 0.5 Mg)) 1 neb INH Q4H [facility] Last Admin: 11/19/16 10:46 Dose: 1 neb Chlorhexidine Gluconate (Peridex Mouth Wash 0.12%*) 15 ml TOPICAL Q4HR [facility] Last Admin: 11/19/16 09:45 Dose: 15 ml Fentanyl (Duragesic Patch 25 Mcg/Hr*) 25 mcg TRANSDERM Q72H [facility] Last Admin: 11/18/16 14:56 Dose: 25 mcg Fentanyl Citrate (Fentanyl*) 50 mcg IV SLOW PU Q2H PRN PRN Reason: PAIN Last Admin: 11/18/16 15:20 Dose: 50 mcg Heparin Sodium (Porcine) (Heparin Vial(*)) 5,000 units SUBCUT Q8HR [facility] Last Admin: 11/19/16 05:22 Dose: 5,000 units Heparin Sodium (Porcine) (Heparin Flush Picc/Ml/Cvc(*)) 1 - 3 ml FLUSH 0600, 1800 [facility] PRN Reason: Protocol Last Admin: 11/19/16 06:51 Dose: Not Given Sodium Chloride (Ns 0.9% 1000 Ml*) 1,000 mls @ 0 mls/hr IV PER RATE [facility] PRN Reason: KVO Last Admin: 11/11/16 05:44 Dose: 15 mls/hr Piperacillin Sod/Tazobactam Sod (Zosyn 3.375 Gm In Ns Premix*) 3.375 gm in 100 mls @ 25 mls/hr IVPB Q8H [facility] Last Admin: 11/19/16 10:29 Dose: 25 mls/hr Propofol (Diprivan*) 100 mls @ 0 mls/hr IV .(Initial Rate) [facility]; Per Protocol PRN Reason: Protocol Last Admin: 11/19/16 09:44 Dose: 31.2 mls/hr Lactulose (Lactulose*) 30 ml NG TUBE DAILY PRN PRN Reason: CONSTIPATION Last Admin: 11/14/16 13:03 Dose: 30 ml Lorazepam (Ativan Inj*) 1 mg IV PUSH Q4H PRN PRN Reason: ANXIETY Last Admin: 11/18/16 17:37 Dose: 1 mg Methylprednisolone Sodium Succinate (Solu-Medrol*) 40 mg IV Q12H [facility] Last Admin: 11/19/16 05:22 Dose: 40 mg Nicotine (Nicotine Patch 21 Mg/24 Hr*) 1 patch TRANSDERM DAILY [facility] Last Admin: 11/19/16 10:29 Dose: 1 patch Oxazepam (Serax Cap*) 10 mg G TUBE Q8H PRN PRN Reason: AGITATION Last Admin: 11/15/16 18:01 Dose: 10 mg Pharmacy Profile Note (Nicotine Patch Removal Note*) 1 note PATCH OFF 2100 [facility] Last Admin: 11/18/16 21:05 Dose: 1 note Pharmacy Profile Note (Fentanyl Patch Check Q Shift) 1 note N/A 0700,1900 [facility] Last Admin: 11/19/16 07:16 Dose: 1 note Polyvinyl Alcohol (Polyvinyl Alcohol 1.4% Opth*) 1 drop BOTH EYES Q2H PRN PRN Reason: DRY EYE Last Admin: 11/15/16 21:06 Dose: 1 drop Senna (Senokot Tab*) 1 tab G TUBE DAILY [facility] Last Admin: 11/19/16 10:30 Dose: 1 tab Thiamine HCl (Vitamin B-1 Tab*) 100 mg G TUBE DAILY [facility] Last Admin: 11/19/16 10:30 Dose: 100 mg Ziprasidone (Geodon Im Inj*) 10 mg IM Q8H PRN PRN Reason: AGITATION Last Admin: 11/18/16 05:20 Dose: 10 mg Physical Exam: General: intubated, awake, not very alert, on sedation, moves spontaneously, doesnt follow commands, no distress, no diaphoresis, obese Head: normocephalic, atraumatic HEENT: no pallor, no icterus, moist mucous membranes Neck: soft, supple, no JVD CVS: normal rate, normal rhythm, no murmur Resp: bilateral air entry, no rhales, no wheeze, no rhonchi, no acc muscle use Abdomen: soft, nontender, nondistended, bowel sounds present Ext: pulses+, warm, no edema Skin: intact, no breakdown, no dryness Neuro: awake, not alert, doesnt follow commands, moves spontaneously now, on sedation though, pupils reactive Labs: Laboratory Results - last 24 hr 11/19/16 11/19/16 11/19/16 05:30 05:30 05:30 WBC 14.9 H RBC 5.50 H Hgb 14.3 Hct 47 MCV 85 MCH 26 L MCHC 31 RDW 19 H Plt Count 271 MPV 8 Neut % (Auto) 85.7 H Lymph % (Auto) 4.5 L [place] % (Auto) 8.6 Eos % (Auto) 0.1 Baso % (Auto) 1.1 Absolute Neuts (auto) 12.7 H Absolute Lymphs (auto) 0.7 L Absolute Monos (auto) 1.3 H Absolute Eos (auto) 0 Absolute Basos (auto) 0.2 Absolute Nucleated RBC 0 Nucleated RBC % 0 INR (Anticoag Therapy) Patient Temperature ABG pH ABG pCO2 ABG pO2 ABG HCO3 ABG O2 Saturation ABG Base Excess VBG pH VBG pCO2 VBG pO2 VBG HCO3 VBG O2 Saturation VBG Base Excess Respiration Rate Ventilator Type Vent Mode FiO2 Inspiratory Time PEEP Pressure Support Pressure Control EPAP IPAP BiPAP Sodium 138 Potassium 4.1 Chloride 100 L Carbon Dioxide 27 Anion Gap 11 BUN 49 H Creatinine 2.27 H Est GFR ( Amer) 39.0 Est GFR (Non-Af Amer) 30.3 BUN/Creatinine Ratio 21.6 H Glucose 168 H Calcium 9.5 Phosphorus 4.6 Magnesium 2.3 Total Bilirubin 1.00 AST 18 ALT 41 Alkaline Phosphatase 61 Ammonia 54 H Total Protein 6.8 Albumin 3.4 Globulin 3.4 Albumin/Globulin Ratio 1.0 11/19/16 11/19/16 11/19/16 05:30 05:30 10:08 WBC RBC Hgb Hct MCV MCH MCHC RDW Plt Count MPV Neut % (Auto) Lymph % (Auto) [place] % (Auto) Eos % (Auto) Baso % (Auto) Absolute Neuts (auto) Absolute Lymphs (auto) Absolute Monos (auto) Absolute Eos (auto) Absolute Basos (auto) Absolute Nucleated RBC Nucleated RBC % INR (Anticoag Therapy) 1.01 Patient Temperature Not Reportable ABG pH 7.32 L ABG pCO2 58 H ABG pO2 83 ABG HCO3 26.5 ABG O2 Saturation 97.0 ABG Base Excess 2.2 H VBG pH 7.35 VBG pCO2 55 H VBG pO2 39 VBG HCO3 26.7 VBG O2 Saturation 72.7 VBG Base Excess 3.3 Respiration Rate Not Reportable Ventilator Type Not Reportable Vent Mode Not Reportable FiO2 30 Inspiratory Time Not Reportable PEEP Not Reportable Pressure Support Not Reportable Pressure Control Not Reportable EPAP Not Reportable IPAP Not Reportable BiPAP Not Reportable Sodium Potassium Chloride Carbon Dioxide Anion Gap BUN Creatinine Est GFR ( Amer) Est GFR (Non-Af Amer) BUN/Creatinine Ratio Glucose Calcium Phosphorus Magnesium Total Bilirubin AST ALT Alkaline Phosphatase Ammonia Total Protein Albumin Globulin Albumin/Globulin Ratio Imaging: cxr 11/[address]; no clear infiltrate present. No effusion/ptx. CT head/MRI head imaging prior reviewed; previous cerebral edema but improved; no acute infarct on subsequent CT/MRI imaging. Assessment: 51y M history of tobacco use, COPD, Cardiomyopathy, CAD, HLD, HTN, Syncope s/p PPM/ICD, sleep apnea, obesity, chronic hypoxia on home O2, ; brought in as Out of hospital cardiac arrest from home, atleast 20-30minutes of downtime before ROSC in the field. Rapid afib was the returning rhythm. -Out of hospital Cardiac Arrest; asystolic? - s/p hypothermia -Acute on Chronic Hypercapneic Respiratory Failure -Acute on chronic Hypoxic Respiratory Failure; ext 11/16, reintubated 11/18 for inability to clear secretions/atelectasis/aspiration -severe sepsis, suspect aspiration pneumonitis as cause -STEPHANIA; ischemic ATN, hypovolemia, septic atn -Atrial fibrillation; resolved -Hypoxic-Ischemic Encephelopathy -Macular Rash sulfa? -COPD -Right ventricular systolic dysfunction; RVH; mod pulm hypertension Plan: Neuro- on propofol, awake now, but doesnt follow commands. wean sedation. neuro checks qshift. baseline new anoxic brain injury from cardiac arrest. asp prec, fall prec. no evidence of agitation. Precedex may be needed prn. CVS- NS infusion, no further hypotension. warm and perfusing. making urine. avoid BB/antihypertensives now. IVF NS infusion to perfuse kidney. hold diuretics. likely some ATN from hypotension/sepsis yesterday. in NSR now, not on therapeutic AC, transient AFib post arrest? monitoring for now. Resp-on APRV; cxr without infiltrate/ptx. ABG reviewed, mild acute on chronic hypercapnea on aprv with RR [address]. Will place on CPAP 10/5 40% today. No plan today for extubation. I suspected aspiration/poor secretion clearance. discussed with sister about resp status, plan for weaning and extubation tomorrow likely. If he further has resp issues from poor clearance then a tracheostomy may have to be considered down the line. no wheezing, dec solumedrol tomorrow to 40mg iv daily. ID-febrile yesterday, now low grade 100.6. wbc 14 today. on zosyn for aspiraton. sputum cx mixed rhoda with more gram+. Vanco IV x1 dose now. No pressors needed. GI- tube feeding via NGT Renal- STEPHANIA noted; making urine now. K normal. no acidosis. Start NS infusion for 1 liter. hold lasix today. appears euvolemic on clinical exam. Heme- hg stable, plt stable; no bleeding. Endo- FS as needed. Musculsk- none Wounds- pressure ulcer prophylaxis Nutrition- NGT feeds with promote @60cc/hour DVT prophylaxis: heparin sq GI prophylaxis: protonix po Central Line: no Arterial Line: no Villaseñor Cathetor: yes; strict i/o in setting of STEPHANIA Disposition: ICU post cardiac arrest, respiratory failure, encephelopathy Code Status: Full Code Total Critical Care time is 45 minutes, excluding procedures/teaching Efrain Corona MD Internet Marketing Manager (Electronically Signed)
[2016-11-19] MEDS ORDERED: Vancomycin per Pharmacy* NOTE FOLLOW UP PRN (11:29)
[2016-11-19] MEDS: NS 0.9% 1000 ML* 1,000 ML IV SCH (11:56)
[2016-11-19] MEDS ORDERED: VANCOMYCIN 1500 MG X 1 DOSE, THEN PER PHARMACY PROTOCOL IVPB ONE ×2 (12:00)
[2016-11-19] MEDS: fentaNYL* 50 MCG/ML 2 ML VIAL (100 MCG VIAL) IV SLOW PU PRN (14:36)
[2016-11-19] MEDS ORDERED: Succinylcholine* 20 MG/ML 10 ML VIAL ONE (19:42)
[2016-11-19] MEDS ORDERED: Etomidate* 2 MG/ML 20 ML VIAL (40 MG) ONE (19:46)
[2016-11-19] MEDS ORDERED: Propofol* 10 MG/ML 20 ML BTL IV PUSH ONE (19:49)
[2016-11-19] MEDS: Nicotine Patch Removal NOTE PATCH OFF SCH (20:32)
--- NOTE | 2016-11-19 21:15 | RAD ---
Indication: Status post intubation. Respiratory failure. Single frontal view of the chest performed at 1900 hours was reviewed. Comparison is made with previous exam dated earlier the same day. Cardiomegaly. Endotracheal tube and nasogastric tube appears in place. Right basilar atelectasis is noted. IMPRESSION: ENDOTRACHEAL TUBE AND NASOGASTRIC TUBE APPEARS IN PLACE. RIGHT BASILAR ATELECTASIS IS NOTED.
[2016-11-20] MEDS: Albuterol/Ipratropium NEB.SOL* Albuterol 2.5 MG/Ipratropium 0.5 MG 3 ML INH SCH ×7 (00:06→23:15)
[2016-11-20] MEDS: Propofol* 100 ML IV SCH ×6 (01:05→08:32)
[2016-11-20] MEDS: Piperac/Tazob 3.375 gm in NS* 3.375 GM/100 ML BAG IVPB SCH ×3 (02:17→18:37)
[2016-11-20] MEDS: Chlorhexidine MOUTHWASH 0.12%* 15 ML UDC TOPICAL SCH ×6 (02:17→21:21)
[2016-11-20] MEDS: NS 0.9% 1000 ML* 1,000 ML IV SCH (02:18)
--- NOTE | 2016-11-20 04:30 | PN ---
Progress Note - Progress Note Note: ABC response Upon arrival to ICU, nursing informed that the mechanical ventilator's tubing support arm had come loose, fallen off, and extubated Mr Doe. He was in mild respiratory distress with stable vitals. Rapid sequence intubation was performed without difficulty, please refer to the procedure notes for details. Patient tolerated the procedure well.
--- NOTE | 2016-11-20 04:33 | PN ---
Progress Note - Progress Note Note: INTUBATION PROCEDURE NOTE INDICATION: accidental extubation PROCEDURE LOOM CHANGER: Ousmane Cortes MD ATTENDING PHYSICIAN: Tisha Hutchins MD CONSENT: The procedure was performed emergently and the permission was implied because of the emergent nature. PROCUDURE SUMMARY: My hands were washed immediately prior to the procedure. Minerva precautions were practiced. The patient was on a personnel officer including continuous pulse oximetry. Integrity of endotracheal tube balloon was demonstrated. Rapid sequence intubation was conducted. The patient received 20mg etomidate & 100mg succinyl choline in addition to increasing his existing propofol GTT from 70 to 100 for adequate sedation & paralysis. Cricoid pressure was maintained from time of induction agent was given to time of cuff balloon inflation. Using a Glidescope and size 8.5 endotracheal tube with stylet, the patient was intubated on the first attempt. The stylet was removed and cuff balloon inflated. Appropriate endotracheal tube position was confirmed by direct visualization of vocal cord passage, fogging of the tube, CO2 colometric indicator, and symmetric breath sounds. The tube was secured at 23cm at the lips. Post intubation chest x-ray confirmed appropriate placement. Attending physician was present throughout.
[2016-11-20 04:54] LABS: Hematocrit 43 % (42-52); Hemoglobin 13.1 g/dl (14.0-18.0); Mean Corpuscular HGB Conc 30 g/dl (31-36); Mean Corpuscular Hemoglobin 26 pg (27-31); Mean Corpuscular Volume 86 fL (80-94); Mean Platelet Volume 8 um3 (7.4-10.4); Red Blood Count 5.01 10^6/ul (4.0-5.4); Red Cell Distribution Width 19 % (10.5-15); White Blood Count 10.6 10^3/ul (3.5-10.8)
[2016-11-20 04:55] LABS: Comments Flag Yes
[2016-11-20 05:10] LABS: BUN/Creatinine Ratio 29.5 (8-20); Calcium 9.3 mg/dL (8.6-10.3); EGFR Non-African American 43.6 (>60)
[2016-11-20] MEDS: Heparin VIAL(*) 5000 UNITS/ML VIAL (FIVE THOUSAND) SUBCUT SCH ×3 (05:53→21:21)
[2016-11-20] MEDS: Vancomycin(*) 1,000 MG in NS 0.9% 250 ML* 250 ML IVPB SCH ×2 (05:54→16:52)
[2016-11-20] MEDS: fentaNYL Patch Check Q Shift 1 NOTE SCH ×2 (07:06→19:21)
--- NOTE | 2016-11-20 08:03 | RAD ---
INDICATION: Infiltrate COMPARISON: November 19, 2016 TECHNIQUE: An AP portable view obtained at 0545 hours is submitted. FINDINGS: Bones/Soft Tissues: There are no acute bony findings. The endotracheal and nasogastric tubes appear unchanged. There are overlying chest leads. There is prior cervical fusion Cardiomediastinal: The cardiomediastinal silhouette is normal. Lungs: Mild linear change right lung base appears improved and is most consistent with atelectasis. There is also linear change left lung base. Pleura: There is a small left-sided effusion. Other: None IMPRESSION: SUSPECTED IMPROVING INFILTRATE OR ATELECTASIS RIGHT LUNG BASE. MILD LEFT BASILAR INFILTRATE WITH SMALL SIDE EFFUSION, UNCHANGED.
--- NOTE | 2016-11-20 08:05 | PN ---
Progress Note - Progress Note Note: Progress Note Critical Care 24 hour events/significant events: -overnight accidently extubated due to loose ventilator stand; was stable but reintubated -is on vent now; post intubation cxr reviewed with good placement of ETT; no complications noted otherwise -on sedation w/propofol 75, fentanyl patch. NS infusing -Still seems a little read all over body but better than yesterday, was red last week also as per nursing -no family at bedside this morning yet -attempted weaning on cpap but was tachypneic yesterday; switched back to vent, on AC mode now, appears comfortable and awakens, sats 100%, rr 17 -afebrile, no hypotension overnight Tele: NSR Vitals: i/o 4537/2800/+1737 over 24 hours Vital Signs Temp 97.6 F 11/20/16 07:59 Pulse 78 11/20/16 07:59 Resp 20 11/20/16 07:59 BP 133/71 11/20/16 07:30 Pulse Ox 100 11/20/16 07:59 Intake & Output 11/19/16 11/20/16 11/20/16 18:59 06:59 18:59 Intake Total 1323 3214 Output Total 900 1900 Balance 423 1314 Weight 279 lb 12.266 oz Intake: IV Fluids 295 1467 ABX - VANCOMYCIN 275 ABX - ZOSYN 195 NS (0.9%) 295 997 IVPB 113 ABX - ZOSYN 113 Medicated IV 286 901 CC - Propofol/Diprivan 286 901 Tube Feeding 509 786 Tube Feeding Flush Amount 120 60 Output: Villaseñor 900 1900 Tube Feeding Residual 0 0 Amount Wasted O2/Vent: AC 16/450/+8/60% --> now switching to PS 12/6 50% TV 450, sat 99%, rr 18 Infusions: propofol 75 Medications: Current Medications Acetaminophen (Tylenol Adult Liq*) 650 mg G TUBE Q6H PRN PRN Reason: TEMP > 38.3 DEG C Last Admin: 11/18/16 18:00 Dose: 650 mg Albuterol/Ipratropium (Duoneb (Albuterol 2.5 Mg/Ipratropium 0.5 Mg)) 1 neb INH Q4H [facility] Last Admin: 11/20/16 03:01 Dose: 1 neb Chlorhexidine Gluconate (Peridex Mouth Wash 0.12%*) 15 ml TOPICAL Q4HR [facility] Last Admin: 11/20/16 05:54 Dose: 15 ml Fentanyl (Duragesic Patch 25 Mcg/Hr*) 25 mcg TRANSDERM Q72H [facility] Last Admin: 11/18/16 14:56 Dose: 25 mcg Fentanyl Citrate (Fentanyl*) 50 mcg IV SLOW PU Q2H PRN PRN Reason: PAIN Last Admin: 11/19/16 14:36 Dose: 50 mcg Heparin Sodium (Porcine) (Heparin Vial(*)) 5,000 units SUBCUT Q8HR [facility] Last Admin: 11/20/16 05:53 Dose: 5,000 units Heparin Sodium (Porcine) (Heparin Flush Picc/Ml/Cvc(*)) 1 - 3 ml FLUSH 0600, 1800 [facility] PRN Reason: Protocol Last Admin: 11/20/16 04:46 Dose: Not Given Sodium Chloride (Ns 0.9% 1000 Ml*) 1,000 mls @ 0 mls/hr IV PER RATE [facility] PRN Reason: KVO Last Admin: 11/11/16 05:44 Dose: 15 mls/hr Piperacillin Sod/Tazobactam Sod (Zosyn 3.375 Gm In Ns Premix*) 3.375 gm in 100 mls @ 25 mls/hr IVPB Q8H [facility] Last Admin: 11/20/16 02:17 Dose: 25 mls/hr Propofol (Diprivan*) 100 mls @ 0 mls/hr IV .(Initial Rate) [facility]; Per Protocol PRN Reason: Protocol Last Admin: 11/20/16 07:29 Dose: 58.5 mls/hr Sodium Chloride (Ns 0.9% 1000 Ml*) 1,000 mls @ 75 mls/hr IV PER RATE [facility] Last Admin: 11/20/16 02:18 Dose: 75 mls/hr Vancomycin HCl 1,000 mg/ (Sodium Chloride) 250 mls @ 166.667 mls/hr IVPB Q12H [facility] Last Admin: 11/20/16 05:54 Dose: 166.667 mls/hr Lactulose (Lactulose*) 30 ml NG TUBE DAILY PRN PRN Reason: CONSTIPATION Last Admin: 11/14/16 13:03 Dose: 30 ml Lansoprazole (Prevacid Solutab*) 30 mg G TUBE DAILY [facility] Lorazepam (Ativan Inj*) 1 mg IV PUSH Q4H PRN PRN Reason: ANXIETY Last Admin: 11/18/16 17:37 Dose: 1 mg Methylprednisolone Sodium Succinate (Solu-Medrol*) 40 mg IV DAILY [facility] Nicotine (Nicotine Patch 21 Mg/24 Hr*) 1 patch TRANSDERM DAILY [facility] Last Admin: 11/19/16 10:29 Dose: 1 patch Oxazepam (Serax Cap*) 10 mg G TUBE Q8H PRN PRN Reason: AGITATION Last Admin: 11/15/16 18:01 Dose: 10 mg Pharmacy Consult (Vancomycin Per Pharmacy*) 1 note FOLLOW UP . PRN PRN Reason: PER PROTOCOL Pharmacy Profile Note (Nicotine Patch Removal Note*) 1 note PATCH OFF 2100 [facility] Last Admin: 11/19/16 20:32 Dose: 1 note Pharmacy Profile Note (Fentanyl Patch Check Q Shift) 1 note N/A 0700,1900 [facility] Last Admin: 11/20/16 07:06 Dose: 1 note Pharmacy Profile Note (Vancomycin Trough Check) 1 note FOLLOW UP 0500 [facility] Stop: 11/21/16 05:01 Polyvinyl Alcohol (Polyvinyl Alcohol 1.4% Opth*) 1 drop BOTH EYES Q2H PRN PRN Reason: DRY EYE Last Admin: 11/15/16 21:06 Dose: 1 drop Senna (Senokot Tab*) 1 tab G TUBE DAILY [facility] Last Admin: 11/19/16 10:30 Dose: 1 tab Thiamine HCl (Vitamin B-1 Tab*) 100 mg G TUBE DAILY [facility] Last Admin: 11/19/16 10:30 Dose: 100 mg Ziprasidone (Geodon Im Inj*) 10 mg IM Q8H PRN PRN Reason: AGITATION Last Admin: 11/18/16 05:20 Dose: 10 mg Physical Exam: General: intubated, sedated but awakens, moves spontaneously, follows some commands now on sedation, no distress, no diaphoresis, obese Head: normocephalic, atraumatic HEENT: no pallor, no icterus, moist mucous membranes Neck: soft, supple, no JVD CVS: normal rate, normal rhythm, no murmur Resp: bilateral air entry, no rhales, no wheeze, no rhonchi, no acc muscle use Abdomen: soft, nontender, nondistended, bowel sounds present Ext: pulses+, warm, no edema Skin: intact, no breakdown, no dryness; flushed appearing skin more in head/ upper ext but less today than yesterday Neuro: sedated, awakens, no distress, pupils reactive. Labs: Laboratory Results - last 24 hr 11/19/16 11/20/16 11/20/16 10:08 04:40 04:40 WBC 10.6 RBC 5.01 Hgb 13.1 L Hct 43 MCV 86 MCH 26 L MCHC 30 L RDW 19 H Plt Count 232 MPV 8 Patient Temperature Not Reportable ABG pH 7.32 L ABG pCO2 58 H ABG pO2 83 ABG HCO3 26.5 ABG O2 Saturation 97.0 ABG Base Excess 2.2 H Respiration Rate Not Reportable Ventilator Type Not Reportable Vent Mode Not Reportable FiO2 30 Inspiratory Time Not Reportable PEEP Not Reportable Pressure Support Not Reportable Pressure Control Not Reportable EPAP Not Reportable IPAP Not Reportable BiPAP Not Reportable Sodium 141 Potassium 4.0 Chloride 104 Carbon Dioxide 29 Anion Gap 8 BUN 49 H Creatinine 1.66 H Est GFR ( Amer) 56.0 Est GFR (Non-Af Amer) 43.6 BUN/Creatinine Ratio 29.5 H Glucose 149 H Calcium 9.3 Imaging: cxr 11/[address]; no clear infiltrate present. No effusion/ptx. CT head/MRI head imaging prior reviewed; previous cerebral edema but improved; no acute infarct on subsequent CT/MRI imaging. cxr 11/19 - post intubation - ett above marshal, RLL atelectasis vs infiltrate cxr 11/20 am - ett in place, RLL infiltrate more resolved but still present, appears linear and prob more atelectasis Assessment: 51y M history of tobacco use, COPD, Cardiomyopathy, CAD, HLD, HTN, Syncope s/p PPM/ICD, sleep apnea, obesity, chronic hypoxia on home O2, ; brought in as Out of hospital cardiac arrest from home, atleast 20-30minutes of downtime before ROSC in the field. Rapid afib was the returning rhythm. -Out of hospital Cardiac Arrest; asystolic? - s/p hypothermia -Acute on Chronic Hypercapneic Respiratory Failure -Acute on chronic Hypoxic Respiratory Failure; ext 11/16, reintubated 11/18 for inability to clear secretions/atelectasis/aspiration -severe sepsis; H.parainfluenza pneumonia/tracheobronchitis -STEPHANIA; ischemic ATN, hypovolemia, septic atn -Atrial fibrillation; resolved -Hypoxic-Ischemic Encephelopathy -Macular Rash sulfa? -COPD -Right ventricular systolic dysfunction; RVH; mod pulm hypertension Plan: Neuro- on propofol, awakens easily, follows commands on lower sedation. wean sedation. neuro checks qshift. anoxic brain injury from cardiac arrest. asp prec , fall prec. no evidence of agitation. Precedex may be needed prn. fentanyl patch, oxazepam, geodon. History reveals he is very much medication for chronic pain +/- anxiety? CVS- NS infusion, hemodyn stable, making urine. warm and perfusing. holding BB/ antihypertensives now, BP low 100s and holding. will decreased IVF NS. NSR now, not on therapeutic AC, transient AFib post arrest? monitoring for now. Resp-on AC mode, appears comfortable. CXR reviewed and it may just be atelectasis +/- infiltrate. Sputum cx with H.parainfluenza and Staph aureus growth, not a contaminant. WIll cont zosyn and vanco today, pending sensitivity and identification. CPAP trial today, cut down sedation. no wheezing. solumedrol 40mg iv daily. Secretions noted to be mild, clear/white/thin. ID-afebrile past 24 hours, WBC dec to 10. Sputum cx H.Parainfluenza and staph aureus, pending sensitivity. On Zosyn and Vanco. GI- tube feeding; PPI for GI prophylaxis Renal- STEPHANIA improving, good urine output but overall positive balance, no edema noted. K normal. no acidosis. Cont NS; may resume some lasix in coming 24-48 hours if needed. appears euvolemic on clinical exam. Heme- hg stable, plt stable; no bleeding. Endo- FS as needed. Musculsk- none Wounds- pressure ulcer prophylaxis Nutrition- NGT feeds with promote @60cc/hour DVT prophylaxis: heparin sq GI prophylaxis: PPI po Central Line: no Arterial Line: no Villaseñor Cathetor: yes; strict i/o in setting of STEPHANIA Disposition: ICU post cardiac arrest, respiratory failure, encephelopathy Code Status: Full Code Total Critical Care time is 40 minutes, excluding procedures/teaching Efrain Corona MD Linen Checker (Electronically Signed)
[2016-11-20] MEDS ORDERED: NS 0.9% 1000 ML* 1,000 ML IV SCH (08:25)
[2016-11-20] MEDS: Lansoprazole SOLUTAB* 30 MG G TUBE SCH (08:32)
[2016-11-20] MEDS: methylPREDNISolone SOD 40 MG* 1 ML VIAL IV SCH (08:32)
[2016-11-20] MEDS: Senna TAB G TUBE SCH (08:32)
[2016-11-20] MEDS: Nicotine PATCH 21 MG/24 HR* PATCH TRANSDERM SCH (08:32)
[2016-11-20] MEDS: Thiamine TAB* 100 MG TAB G TUBE SCH (08:32)
[2016-11-20] MEDS: fentaNYL PATCH 50 MCG/HR TRANSDERM SCH (09:56)
[2016-11-20] MEDS ORDERED: Bisacodyl SUPP* 10 MG SUPP PR PRN (10:19)
[2016-11-20] MEDS ORDERED: Dexmedetomidine* 50 ML IVPB SCH (12:00)
[2016-11-20] MEDS ORDERED: Dexmedetomidine* 200 MCG/2 ML 2 ML VIAL ONE (12:01)
[2016-11-20] MEDS ORDERED: Dexmedetomidine* 200 MCG in NS 0.9% 50 ML* 48 ML IVPB SCH (13:00)
[2016-11-20] MEDS: LORazepam INJ* 2 MG/ML 1 ML VIAL IV PUSH PRN (13:42)
[2016-11-20] MEDS: fentaNYL* 50 MCG/ML 2 ML VIAL (100 MCG VIAL) IV SLOW PU PRN (21:16)
[2016-11-20] MEDS: Nicotine Patch Removal NOTE PATCH OFF SCH (21:16)
[2016-11-21] MEDS: Chlorhexidine MOUTHWASH 0.12%* 15 ML UDC TOPICAL SCH ×6 (02:24→20:33)
[2016-11-21] MEDS: Piperac/Tazob 3.375 gm in NS* 3.375 GM/100 ML BAG IVPB SCH (02:24)
[2016-11-21] MEDS: Albuterol/Ipratropium NEB.SOL* Albuterol 2.5 MG/Ipratropium 0.5 MG 3 ML INH SCH ×6 (03:15→23:02)
[2016-11-21 04:55] LABS: Hematocrit 42 % (42-52); Hemoglobin 12.6 g/dl (14.0-18.0); Mean Corpuscular HGB Conc 30 g/dl (31-36); Mean Corpuscular Hemoglobin 26 pg (27-31); Mean Corpuscular Volume 86 fL (80-94); Mean Platelet Volume 8 um3 (7.4-10.4); Red Blood Count 4.85 10^6/ul (4.0-5.4); Red Cell Distribution Width 19 % (10.5-15); White Blood Count 9.1 10^3/ul (3.5-10.8)
[2016-11-21 04:57] LABS: Comments Flag Yes
[2016-11-21] MEDS ORDERED: Vancomycin Trough Check NOTE FOLLOW UP ONE (05:00)
[2016-11-21 05:10] LABS: BUN/Creatinine Ratio 30.2 (8-20); Calcium 8.4 mg/dL (8.6-10.3); EGFR Non-African American 73.1 (>60); Potassium 3.4 mmol/L (3.5-5.0)
[2016-11-21 05:21] LABS: Vancomycin Trough 13.6 mcg/mL
[2016-11-21] MEDS: Vancomycin(*) 1,000 MG in NS 0.9% 250 ML* 250 ML IVPB SCH (05:27)
[2016-11-21] MEDS: Heparin VIAL(*) 5000 UNITS/ML VIAL (FIVE THOUSAND) SUBCUT SCH ×3 (05:50→22:40)
[2016-11-21] MEDS: fentaNYL Patch Check Q Shift 1 NOTE SCH ×2 (07:19→19:06)
--- NOTE | 2016-11-21 08:20 | PN ---
Progress Note - Progress Note Note: Progress Note Critical Care 24 hour events/significant events: -extubated to bipap yesterday, remained tachypneic yesterday in upper 20s rr sometimes 30s but good volume and no desaturation. -overnight comfortable; remains on precedex for restlessness -this morning on NIV 16/8 65%; sat 100%, rr 18 tv 600-800 -appears more comfortable, awakens, follows some commands as prior, knods when asked. far less distress this morning. Tele: NSR Vitals: Vital Signs Temp 99.0 F 11/21/16 06:00 Pulse 66 11/21/16 07:35 Resp 21 11/21/16 07:35 BP 143/82 11/21/16 06:00 Pulse Ox 96 11/21/16 07:35 Intake & Output 11/20/16 11/21/16 11/21/16 18:59 06:59 18:59 Intake Total 1497 1028 Output Total 1000 2400 Balance 497 -1372 Weight 277 lb 8.992 oz Intake: IV Fluids 384 200 ABX - ZOSYN 115 200 NS (0.9%) 269 Medicated IV 418 313 CC - Propofol/Diprivan 418 Precedex 313 Tube Feeding 515 515 Tube Feeding Flush Amount 180 Output: Villaseñor 1000 2400 Other: Estimated Void Medium # Bowel Movements 3 Estimated Stool Amount Small # Voids 2 O2/Vent: NIV 14/6 65%; sat 96%, rr 18, TV 600-800+ Infusions: precedex 0.5 Medications: Acetaminophen (Tylenol Adult Liq*) 650 mg G TUBE Q6H PRN PRN Reason: TEMP > 38.3 DEG C Last Admin: 11/18/16 18:00 Dose: 650 mg Albuterol/Ipratropium (Duoneb (Albuterol 2.5 Mg/Ipratropium 0.5 Mg)) 1 neb INH Q4H RITCHIE Last Admin: 11/21/16 07:35 Dose: 1 neb Bisacodyl (Dulcolax Supp*) 10 mg IA DAILY PRN PRN Reason: CONSTIPATION Last Admin: 11/20/16 11:10 Dose: 10 mg Chlorhexidine Gluconate (Peridex Mouth Wash 0.12%*) 15 ml TOPICAL Q4HR RITCH[place] Last Admin: 11/21/16 05:50 Dose: 15 ml Fentanyl (Duragesic Patch 50 Mcg/Hr*) 50 mcg TRANSDERM Q72H ON LICENSE OF [facility] Last Admin: 11/20/16 09:56 Dose: 50 mcg Fentanyl Citrate (Fentanyl*) 50 mcg IV SLOW PU Q2H PRN PRN Reason: PAIN Last Admin: 11/20/16 21:16 Dose: 50 mcg Heparin Sodium (Porcine) (Heparin Vial(*)) 5,000 units SUBCUT Q8HR ON LICENSE OF [facility] Last Admin: 11/21/16 05:50 Dose: 5,000 units Heparin Sodium (Porcine) (Heparin Flush Picc/Ml/Cvc(*)) 1 - 3 ml FLUSH 0600, 1800 ON LICENSE OF [facility] PRN Reason: Protocol Last Admin: 11/21/16 05:50 Dose: Not Given Sodium Chloride (Ns 0.9% 1000 Ml*) 1,000 mls @ 0 mls/hr IV PER RATE ON LICENSE OF [facility] PRN Reason: KVO Last Admin: 11/11/16 05:44 Dose: 15 mls/hr Piperacillin Sod/Tazobactam Sod (Zosyn 3.375 Gm In Ns Premix*) 3.375 gm in 100 mls @ 25 mls/hr IVPB Q8H ON LICENSE OF [facility] Last Admin: 11/21/16 02:24 Dose: 25 mls/hr Vancomycin HCl 1,000 mg/ (Sodium Chloride) 250 mls @ 166.667 mls/hr IVPB Q12H ON LICENSE OF [facility] Last Admin: 11/21/16 05:27 Dose: 166.667 mls/hr Sodium Chloride (Ns 0.9% 1000 Ml*) 1,000 mls @ 50 mls/hr IV PER RATE ON LICENSE OF [facility] Dexmedetomidine HCl 400 mcg/ (Sodium Chloride) 100 mls @ 22.2 mls/hr IVPB Q4H ON LICENSE OF [facility] PRN Reason: 0.7 MCG/KG/HR Last Admin: 11/21/16 05:50 Dose: 15.9 mls/hr Lactulose (Lactulose*) 30 ml NG TUBE DAILY PRN PRN Reason: CONSTIPATION Last Admin: 11/20/16 10:27 Dose: 30 ml Lansoprazole (Prevacid Solutab*) 30 mg G TUBE DAILY ON LICENSE OF [facility] Last Admin: 11/20/16 08:32 Dose: 30 mg Lorazepam (Ativan Inj*) 1 mg IV PUSH Q4H PRN PRN Reason: ANXIETY Last Admin: 11/20/16 13:42 Dose: 1 mg Methylprednisolone Sodium Succinate (Solu-Medrol*) 40 mg IV DAILY ON LICENSE OF [facility] Last Admin: 11/20/16 08:32 Dose: 40 mg Nicotine (Nicotine Patch 21 Mg/24 Hr*) 1 patch TRANSDERM DAILY ON LICENSE OF [facility] Last Admin: 11/20/16 08:32 Dose: 1 patch Oxazepam (Serax Cap*) 10 mg G TUBE Q8H PRN PRN Reason: AGITATION Last Admin: 11/15/16 18:01 Dose: 10 mg Pharmacy Consult (Vancomycin Per Pharmacy*) 1 note FOLLOW UP . PRN PRN Reason: PER PROTOCOL Pharmacy Profile Note (Nicotine Patch Removal Note*) 1 note PATCH OFF 2100 ON LICENSE OF [facility] Last Admin: 11/20/16 21:16 Dose: 1 note Pharmacy Profile Note (Fentanyl Patch Check Q Shift) 1 note N/A 0700,1900 ON LICENSE OF [facility] Last Admin: 11/21/16 07:19 Dose: 1 note Polyvinyl Alcohol (Polyvinyl Alcohol 1.4% Opth*) 1 drop BOTH EYES Q2H PRN PRN Reason: DRY EYE Last Admin: 11/15/16 21:06 Dose: 1 drop Senna (Senokot Tab*) 1 tab G TUBE DAILY ON LICENSE OF [facility] Last Admin: 11/20/16 08:32 Dose: 1 tab Thiamine HCl (Vitamin B-1 Tab*) 100 mg G TUBE DAILY ON LICENSE OF [facility] Last Admin: 11/20/16 08:32 Dose: 100 mg Ziprasidone (Geodon Im Inj*) 10 mg IM Q8H PRN PRN Reason: AGITATION Last Admin: 11/18/16 05:20 Dose: 10 mg Physical Exam: General: awake, alert, follows some commands, on NIV, no resp distress, comfortable appearing, no diaphoresis; obese Head: normocephalic, atraumatic HEENT: no pallor, no icterus, dry around the mouth from NIV Neck: soft, supple, no JVD CVS: normal rate, normal rhythm, no murmur Resp: bilateral air entry, no rhales, no wheeze, no rhonchi, no acc muscle use Abdomen: soft, nontender, nondistended, bowel sounds present Ext: pulses+, warm, no edema Skin: intact, no breakdown, no dryness; flushed appearing skin more in head/ upper ext but less today than yesterday Neuro: awake, alert, follows some commands, verbalizes a little according to nurse, moves all ext. Labs: Laboratory Results - last 24 hr 11/21/16 11/21/16 04:30 04:30 WBC 9.1 RBC 4.85 Hgb 12.6 L Hct 42 MCV 86 MCH 26 L MCHC 30 L RDW 19 H Plt Count 208 MPV 8 Sodium 147 H Potassium 3.4 L Chloride 110 Carbon Dioxide 28 Anion Gap 9 BUN 32 H Creatinine 1.06 Est GFR ( Amer) 94.0 Est GFR (Non-Af Amer) 73.1 BUN/Creatinine Ratio 30.2 H Glucose 94 Calcium 8.4 L Vancomycin Trough 13.6 Imaging: cxr 11/[address]; no clear infiltrate present. No effusion/ptx. CT head/MRI head imaging prior reviewed; previous cerebral edema but improved; no acute infarct on subsequent CT/MRI imaging. cxr 11/19 - post intubation - ett above marshal, RLL atelectasis vs infiltrate cxr 11/20 am - ett in place, RLL infiltrate more resolved but still present, appears linear and prob more atelectasis Assessment: 51y M history of tobacco use, COPD, Cardiomyopathy, CAD, HLD, HTN, Syncope s/p PPM/ICD, sleep apnea, obesity, chronic hypoxia on home O2, ; brought in as Out of hospital cardiac arrest from home, atleast 20-30minutes of downtime before ROSC in the field. Rapid afib was the returning rhythm. -Out of hospital Cardiac Arrest; asystolic? - s/p hypothermia -Acute on Chronic Hypercapneic Respiratory Failure -Acute on chronic Hypoxic Respiratory Failure; ext 11/16, reintubated 11/18; extubated 11/20 -severe sepsis; H.parainfluenza and Staph aureus pneumonia/tracheobronchitis -STEPHANIA; ischemic ATN, hypovolemia, septic atn -Atrial fibrillation; resolved -Hypoxic-Ischemic Encephelopathy -Macular Rash sulfa? -COPD -Right ventricular systolic dysfunction; RVH; mod pulm hypertension Plan: Neuro- on precedex for restlessness, can further decrease, comfortable appearing. on geodon. on fentanyl for pain. denies pain at this time when asked. CVS- off NS infusion. hemodyn stable. no hypotension. good urine output, warm ext. holding BB for now. Will consider lasix restart low dose today/tomorrow. Remains in NSR, no further afib noted. Resp- on NIV and tolerating well today, far less distress. Decreased NIV to 14/ 6 this morning, cont to wean fio2 to keep sat 92% given chronic copd. CXR this morning pending. will attempt to switch to ventimask/NC this morning, discussed with repsiratory. Sputum cx with H.Parainfluenza and Staph aureus, very low grade temps only, can de-escalate abx to ceftriaxone as coverage for 5-7 days total (today 10/12). Still poor ability to clear secretions. Keep HOB>45, asp prec , freq posterior suctioning. needs speech/swallow today to assess for asp risk and if needs PEG. ID-last temp 99, wbc 9. Sputum cx +; check cxr today. on Zosyn and vanco, will change to ceftriaxone today for H.parainfluenza and staph aureus. Day 4/7. GI- off tube feeding. need speech eval and swallow eval for asp risk; PPI for GI prophylaxis Renal- STEPHANIA improving, good urine output, neg balance now. off NS infusion. Will consider lasix restart low dose. no edema noted. K normal. no acidosis. Heme- hg stable, plt stable; no bleeding. Endo- FS as needed. Musculsk- none Wounds- pressure ulcer prophylaxis Nutrition- NPO now; swallow eval today DVT prophylaxis: heparin sq GI prophylaxis: PPI po Central Line: no Arterial Line: no Villaseñor Cathetor: yes; strict i/o in setting of STEPHANIA Disposition: ICU post cardiac arrest, respiratory failure, encephelopathy Code Status: Full Code Total Critical Care time is 35 minutes, excluding procedures/teaching Efrain Corona MD Recoating Machine Operator (Electronically Signed)
--- NOTE | 2016-11-21 08:53 | RAD ---
INDICATION: Pneumonia COMPARISON: Chest x-ray November 20, 2016 TECHNIQUE: An AP portable view obtained at 0030 hours is submitted. FINDINGS: Bones/Soft Tissues: There are no acute bony findings. The endotracheal and nasogastric tubes have been removed. Cardiomediastinal: The cardiomediastinal silhouette is normal. Lungs: There are no infiltrates. There is basilar hypoventilation. Pleura: Small bilateral pleural effusions. Other: None IMPRESSION: BASILAR HYPOVENTILATION WITH SMALL BILATERAL PLEURAL EFFUSIONS.
[2016-11-21] MEDS: Nicotine PATCH 21 MG/24 HR* PATCH TRANSDERM SCH (10:41)
[2016-11-21] MEDS ORDERED: hydrALAZINE IV* 20 MG/ML VIAL IV SLOW PU ONE (10:43)
[2016-11-21] MEDS ORDERED: hydrALAZINE IV* 20 MG/ML VIAL IV SLOW PU PRN (10:44)
[2016-11-21] MEDS: methylPREDNISolone SOD 40 MG* 1 ML VIAL IV SCH (11:03)
[2016-11-21] MEDS ORDERED: Labetalol IV* 5 MG/ML 20 ML VIAL IV PUSH ONE (12:30)
[2016-11-21] MEDS: amLODIPine TAB* 5 MG PO SCH (17:36)
[2016-11-21] MEDS: Metoprolol Tartrate TAB* 25 MG PO SCH ×2 (17:36→20:33)
[2016-11-21] MEDS: fentaNYL* 50 MCG/ML 2 ML VIAL (100 MCG VIAL) IV SLOW PU PRN (19:01)
[2016-11-21] MEDS: Lansoprazole SOLUTAB* 30 MG G TUBE SCH (20:32)
[2016-11-21] MEDS: Senna TAB G TUBE SCH (20:32)
[2016-11-21] MEDS: busPIRone TAB* 15 MG PO SCH (20:33)
[2016-11-21] MEDS: Nicotine Patch Removal NOTE PATCH OFF SCH (20:33)
[2016-11-21] MEDS: Thiamine TAB* 100 MG TAB G TUBE SCH (20:33)
[2016-11-22] MEDS: Chlorhexidine MOUTHWASH 0.12%* 15 ML UDC TOPICAL SCH ×4 (02:18→14:02)
[2016-11-22] MEDS: Albuterol/Ipratropium NEB.SOL* Albuterol 2.5 MG/Ipratropium 0.5 MG 3 ML INH SCH ×7 (03:25→23:32)
[2016-11-22] MEDS: Heparin VIAL(*) 5000 UNITS/ML VIAL (FIVE THOUSAND) SUBCUT SCH ×3 (05:46→20:54)
[2016-11-22 06:27] LABS: Hematocrit 43 % (42-52); Hemoglobin 13.3 g/dl (14.0-18.0); Mean Corpuscular HGB Conc 31 g/dl (31-36); Mean Corpuscular Hemoglobin 27 pg (27-31); Mean Corpuscular Volume 86 fL (80-94); Mean Platelet Volume 8 um3 (7.4-10.4); Red Blood Count 4.99 10^6/ul (4.0-5.4); Red Cell Distribution Width 19 % (10.5-15); White Blood Count 6.7 10^3/ul (3.5-10.8)
[2016-11-22 06:44] LABS: BUN/Creatinine Ratio 33.7 (8-20); Calcium 9.1 mg/dL (8.6-10.3); EGFR Non-African American 89.4 (>60); Potassium 3.5 mmol/L (3.5-5.0)
[2016-11-22] MEDS: fentaNYL Patch Check Q Shift 1 NOTE SCH ×2 (06:49→19:17)
[2016-11-22] MEDS: Lansoprazole SOLUTAB* 30 MG G TUBE SCH (07:24)
[2016-11-22] MEDS: methylPREDNISolone SOD 40 MG* 1 ML VIAL IV SCH (09:38)
[2016-11-22] MEDS: amLODIPine TAB* 5 MG PO SCH (09:39)
[2016-11-22] MEDS: Nicotine PATCH 21 MG/24 HR* PATCH TRANSDERM SCH (09:39)
[2016-11-22] MEDS: busPIRone TAB* 15 MG PO SCH ×2 (09:39→20:53)
[2016-11-22] MEDS: Thiamine TAB* 100 MG TAB G TUBE SCH (09:39)
--- NOTE | 2016-11-22 09:46 | PN ---
Progress Note - Progress Note Note: Progress Note Critical Care 24 hour events/significant events: -on NC all day yesterday, sat in chair, tolerated PO diet with pureed food. No distress. overnight on bipap -no fevers, secretions still being suctioned from posterior oropharynx. patient has cough but not as effective to clear, seems he brings it up partly and swallows? -this morning on bipap, no distress, awake, follows commands as previously, some response to questions. moves all ext. Tele: NSR Vitals: Vital Signs Temp 99.0 F 11/22/16 09:00 Pulse 64 11/22/16 09:00 Resp 15 11/22/16 09:00 BP 137/75 11/22/16 09:00 Pulse Ox 94 11/22/16 09:00 Intake & Output 11/21/16 11/22/16 11/22/16 18:59 06:59 18:59 Intake Total 428 916 Output Total 1200 1325 Balance -772 -409 Weight 285 lb 0.923 oz Intake: IV Fluids 170 697 ABX - CEFTRIAXONE 234 ABX - ZOSYN 38 NS (0.9%) 132 463 IVPB 100 100 ABX - CEFTRIAXONE 100 ABX - ZOSYN 100 Medicated IV 148 119 Precedex 148 119 Oral 10 Output: Caballero 1200 1325 Other: Date of Last Bowel 11/22/16 Movement # Bowel Movements 2 Estimated Stool Amount Small O2/Vent: NIV 20/02 overnight -> now on 15L NC; sat 96%, rr16 Infusions: - Medications: Acetaminophen (Tylenol Adult Liq*) 650 mg G TUBE Q6H PRN PRN Reason: TEMP > 38.3 DEG C Last Admin: 11/18/16 18:00 Dose: 650 mg Albuterol/Ipratropium (Duoneb (Albuterol 2.5 Mg/Ipratropium 0.5 Mg)) 1 neb INH Q4H RITCHIE Last Admin: 11/22/16 07:19 Dose: 1 neb Amlodipine Besylate (Norvasc Tab*) 5 mg PO DAILY RITCHIE Last Admin: 11/22/16 09:39 Dose: 5 mg Bisacodyl (Dulcolax Supp*) 10 mg NH DAILY PRN PRN Reason: CONSTIPATION Last Admin: 11/20/16 11:10 Dose: 10 mg Buspirone HCl (Buspar Tab *) 15 mg PO BID [facility] Last Admin: 11/22/16 09:39 Dose: 15 mg Chlorhexidine Gluconate (Peridex Mouth Wash 0.12%*) 15 ml TOPICAL Q4HR [facility] Last Admin: 11/22/16 05:46 Dose: 15 ml Fentanyl (Duragesic Patch 50 Mcg/Hr*) 50 mcg TRANSDERM Q72H [facility] Last Admin: 11/20/16 09:56 Dose: 50 mcg Fentanyl Citrate (Fentanyl*) 50 mcg IV SLOW PU Q2H PRN PRN Reason: PAIN Last Admin: 11/21/16 19:01 Dose: 50 mcg Heparin Sodium (Porcine) (Heparin Vial(*)) 5,000 units SUBCUT Q8HR [facility] Last Admin: 11/22/16 05:46 Dose: 5,000 units Heparin Sodium (Porcine) (Heparin Flush Picc/Ml/Cvc(*)) 1 - 3 ml FLUSH 0600, 1800 [facility] PRN Reason: Protocol Last Admin: 11/22/16 05:47 Dose: Not Given Hydralazine HCl (Apresoline Iv*) 5 mg IV SLOW PU Q4H PRN PRN Reason: BLOOD PRESSURE Sodium Chloride (Ns 0.9% 1000 Ml*) 1,000 mls @ 0 mls/hr IV PER RATE [facility] PRN Reason: KVO Last Admin: 11/11/16 05:44 Dose: 15 mls/hr Sodium Chloride (Ns 0.9% 1000 Ml*) 1,000 mls @ 50 mls/hr IV PER RATE [facility] Last Admin: 11/21/16 12:15 Dose: 50 mls/hr Dexmedetomidine HCl 400 mcg/ (Sodium Chloride) 100 mls @ 22.2 mls/hr IVPB Q4H [facility] PRN Reason: 0.7 MCG/KG/HR Last Admin: 11/22/16 05:47 Dose: Not Given Ceftriaxone Sodium 2 gm/ (Sodium Chloride) 100 mls @ 200 mls/hr IVPB Q24H [facility] Last Admin: 11/22/16 09:39 Dose: 200 mls/hr Lactulose (Lactulose*) 30 ml NG TUBE DAILY PRN PRN Reason: CONSTIPATION Last Admin: 11/20/16 10:27 Dose: 30 ml Lorazepam (Ativan Inj*) 1 mg IV PUSH Q4H PRN PRN Reason: ANXIETY Last Admin: 11/20/16 13:42 Dose: 1 mg Methylprednisolone Sodium Succinate (Solu-Medrol 40 Mg) 20 mg IV DAILY [facility] Stop: 11/23/16 23:59 Last Admin: 11/22/16 09:38 Dose: 20 mg Metoprolol Tartrate (Lopressor Tab*) 25 mg PO BID [facility] Last Admin: 11/21/16 20:33 Dose: Not Given Nicotine (Nicotine Patch 21 Mg/24 Hr*) 1 patch TRANSDERM DAILY [facility] Last Admin: 11/22/16 09:39 Dose: 1 patch Oxazepam (Serax Cap*) 10 mg G TUBE Q8H PRN PRN Reason: AGITATION Last Admin: 11/15/16 18:01 Dose: 10 mg Pantoprazole Sodium (Protonix Tab (Nf)) 20 mg PO DAILY [facility] Pharmacy Profile Note (Nicotine Patch Removal Note*) 1 note PATCH OFF 2100 [facility] Last Admin: 11/21/16 20:33 Dose: 1 note Pharmacy Profile Note (Fentanyl Patch Check Q Shift) 1 note N/A 0700,1900 [facility] Last Admin: 11/22/16 06:49 Dose: 1 note Polyvinyl Alcohol (Polyvinyl Alcohol 1.4% Opth*) 1 drop BOTH EYES Q2H PRN PRN Reason: DRY EYE Last Admin: 11/15/16 21:06 Dose: 1 drop Senna (Senokot Tab*) 1 tab G TUBE DAILY [facility] Last Admin: 11/21/16 20:32 Dose: Not Given Thiamine HCl (Vitamin B-1 Tab*) 100 mg G TUBE DAILY [facility] Last Admin: 11/22/16 09:39 Dose: 100 mg Ziprasidone (Geodon Im Inj*) 10 mg IM Q8H PRN PRN Reason: AGITATION Last Admin: 11/18/16 05:20 Dose: 10 mg Physical Exam: General: awake, alert, follows some commands, no resp distress, comfortable appearing, no diaphoresis; obese Head: normocephalic, atraumatic HEENT: no pallor, no icterus, moist mucous membranes Neck: soft, supple, no JVD CVS: normal rate, normal rhythm, no murmur Resp: bilateral air entry, no rhales, no wheeze, no rhonchi, no acc muscle use Abdomen: soft, nontender, nondistended, bowel sounds present Ext: pulses+, warm, no edema Skin: intact, no breakdown, no dryness; less flushed Neuro: awake, alert, follows some commands, doesnt verbalize much, moves all ext. Labs: Laboratory Results - last 24 hr 11/22/16 11/22/16 05:45 05:45 WBC 6.7 RBC 4.99 Hgb 13.3 L Hct 43 MCV 86 MCH 27 MCHC 31 RDW 19 H Plt Count 209 MPV 8 Sodium 146 H Potassium 3.5 Chloride 109 Carbon Dioxide 28 Anion Gap 9 BUN 30 H Creatinine 0.89 Est GFR ( Amer) 115.0 Est GFR (Non-Af Amer) 89.4 BUN/Creatinine Ratio 33.7 H Glucose 95 Calcium 9.1 Imaging: cxr 11/[address]; no clear infiltrate present. No effusion/ptx. CT head/MRI head imaging prior reviewed; previous cerebral edema but improved; no acute infarct on subsequent CT/MRI imaging. cxr 11/19 - post intubation - ett above marshal, RLL atelectasis vs infiltrate cxr 11/20 am - ett in place, RLL infiltrate more resolved but still present, appears linear and prob more atelectasis Assessment: 51y M history of tobacco use, COPD, Cardiomyopathy, CAD, HLD, HTN, Syncope s/p PPM/ICD, sleep apnea, obesity, chronic hypoxia on home O2, ; brought in as Out of hospital cardiac arrest from home, atleast 20-30minutes of downtime before ROSC in the field. Rapid afib was the returning rhythm. -Out of hospital Cardiac Arrest; asystolic? - s/p hypothermia -Acute on Chronic Hypercapneic Respiratory Failure, improved -Acute on chronic Hypoxic Respiratory Failure; ext 11/16, reintubated 11/18; extubated 11/20 -severe sepsis; H.parainfluenza and Staph aureus pneumonia/tracheobronchitis -STE[place]IA; ischemic ATN, hypovolemia, septic atn -Atrial fibrillation; resolved -Hypoxic-Ischemic Encephelopathy -Macular Rash sulfa? -COPD -Right ventricular systolic dysfunction; RVH; mod pulm hypertension Plan: Neuro- on precedex, cont to wean off today. on buspar. start seroquel 25mg po bid. d/c IM ziprasidone. Reorient, delirium prec. dec fentanyl patch to 25mcg q72h. denies pain at this time when asked. CVS- off NS infusion. hemodyn stable. no hypotension. good urine output, neg balance, warm ext. restarted metoprolol and norvasc for hypertension, controlled today. Lasix as needed, alreayd diuresing. Remains in NSR, no further afib noted. Resp- on NIV at night, NC in the day. less distress, secretions at times+. less febrile. dec Fio2, chronic hypoxia, can tolerate sats in 88-92%. Need bipap at night for [place]/obesity, he was already noncompliant at home but episodes of hypoxia at night. Ceftriaxone as coverage for H/parainfluenza and staph aureus ( day 11/11). Still poor ability to clear secretions. Keep HOB>45, asp prec, freq posterior suctioning. ID-last temp 99, wbc 6. Sputum cx +. on ceftriaxone IV day 11/11. GI- Passed swallow eval, some abnormal swallowing and I feel aspiration risk. TOlerating pureed diet now. PPI for GI prophylaxis Renal- STEPHANIA improved, good urine output, neg balance now. off IVF. Lasix as needed, re-eval daily. Can consider d/c of caballero in coming 24-48 hours. Replete K as needed. Heme- hg stable, plt stable; no bleeding. Endo- FS as needed. Musculsk- none Wounds- pressure ulcer prophylaxis Nutrition- oral pureed diet DVT prophylaxis: heparin sq GI prophylaxis: PPI Central Line: no Arterial Line: no Caballero Cathetor: yes; strict i/o in setting of STEPHANIA Disposition: ICU post cardiac arrest, respiratory failure, encephelopathy Code Status: Full Code Total Critical Care time is 35 minutes, excluding procedures/teaching Efrain Corona MD Station Chief (Electronically Signed)
[2016-11-22] MEDS ORDERED: QUEtiapine TAB* 25 MG PO SCH (10:00)
[2016-11-22] MEDS: Senna TAB G TUBE SCH (10:21)
[2016-11-22] MEDS: fentaNYL PATCH 50 MCG/HR TRANSDERM SCH (10:33)
[2016-11-22] MEDS: fentaNYL PATCH 25 MCG/HR TRANSDERM SCH (10:34)
[2016-11-22] MEDS: Metoprolol Tartrate TAB* 25 MG PO SCH ×2 (10:34→20:52)
[2016-11-22] MEDS: QUEtiapine TAB* 25 MG PO SCH ×2 (10:48→20:53)
[2016-11-22] MEDS: NS 0.45% 1000 ML BAG* 1,000 ML IV SCH (16:34)
[2016-11-22] MEDS: LORazepam INJ* 2 MG/ML 1 ML VIAL IV PUSH PRN (17:20)
[2016-11-22] MEDS: Nicotine Patch Removal NOTE PATCH OFF SCH (20:53)
[2016-11-23] MEDS: Albuterol/Ipratropium NEB.SOL* Albuterol 2.5 MG/Ipratropium 0.5 MG 3 ML INH SCH ×6 (03:14→23:53)
[2016-11-23] MEDS: Heparin VIAL(*) 5000 UNITS/ML VIAL (FIVE THOUSAND) SUBCUT SCH ×3 (06:16→21:06)
[2016-11-23 06:27] LABS: Hematocrit 46 % (42-52); Hemoglobin 14.1 g/dl (14.0-18.0); Mean Corpuscular HGB Conc 31 g/dl (31-36); Mean Corpuscular Hemoglobin 26 pg (27-31); Mean Corpuscular Volume 86 fL (80-94); Mean Platelet Volume 8 um3 (7.4-10.4); Red Blood Count 5.37 10^6/ul (4.0-5.4); Red Cell Distribution Width 19 % (10.5-15)
[2016-11-23 06:36] LABS: Comments Flag Yes
[2016-11-23 06:42] LABS: BUN/Creatinine Ratio 31.5 (8-20); Calcium 9.4 mg/dL (8.6-10.3); EGFR Non-African American 89.4 (>60); Potassium 3.4 mmol/L (3.5-5.0)
[2016-11-23] MEDS: fentaNYL Patch Check Q Shift 1 NOTE SCH ×2 (06:59→19:02)
[2016-11-23] MEDS: amLODIPine TAB* 5 MG PO SCH (08:13)
[2016-11-23] MEDS: methylPREDNISolone SOD 40 MG* 1 ML VIAL IV SCH (08:13)
[2016-11-23] MEDS: Metoprolol Tartrate TAB* 25 MG PO SCH ×2 (08:14→21:05)
[2016-11-23] MEDS: Nicotine PATCH 21 MG/24 HR* PATCH TRANSDERM SCH (08:14)
[2016-11-23] MEDS: Omeprazole CAP* 20 MG PO SCH (08:14)
--- NOTE | 2016-11-23 08:19 | PN ---
Progress Note - Progress Note Note: Progress Note Critical Care 24 hour events/significant events: -on NC all day yesterday, sat in chair, tolerated PO diet with pureed food but doesnt finish all. No distress. overnight on bipap. -low grade 99.9, secretions still being suctioned from posterior oropharynx. patient has cough but not as effective to clear completely -this morning on bipap, no distress, awake, follows commands as previously, some response to questions. moves all ext. -noted diarrhea+ yesterday, brownish without blood Tele: NSR Vitals: Vital Signs Temp 99.9 F 11/23/16 07:00 Pulse 91 11/23/16 07:40 Resp 22 11/23/16 07:40 BP 152/72 11/23/16 07:00 Pulse Ox 92 11/23/16 07:40 Intake & Output 11/22/16 11/23/16 11/23/16 18:59 06:59 18:59 Intake Total 538 783 Output Total 1000 1100 Balance -462 -317 Weight 279 lb 5.211 oz Intake: IV Fluids 473 783 NS (0.45%) 783 NS (0.9%) 473 IVPB 0 NS (0.45%) 0 Medicated IV 65 Precedex 65 Output: Caballero 1000 1000 Liquid Stool 100 O2/Vent: NIV 16/8 overnight; sat 92-94%, no distress; tv 900-1100, rr 22 Infusions: 1/2 ns @ 50 Medications: Acetaminophen (Tylenol Adult Liq*) 650 mg G TUBE Q6H PRN PRN Reason: TEMP > 38.3 DEG C Last Admin: 11/18/16 18:00 Dose: 650 mg Albuterol/Ipratropium (Duoneb (Albuterol 2.5 Mg/Ipratropium 0.5 Mg)) 1 neb INH Q4H [facility] Last Admin: 11/23/16 07:40 Dose: 1 neb Amlodipine Besylate (Norvasc Tab*) 5 mg PO DAILY [facility] Last Admin: 11/23/16 08:13 Dose: 5 mg Bisacodyl (Dulcolax Supp*) 10 mg CO DAILY PRN PRN Reason: CONSTIPATION Last Admin: 11/20/16 11:10 Dose: 10 mg Buspirone HCl (Buspar Tab *) 15 mg PO BID [facility] Last Admin: 11/22/16 20:53 Dose: 15 mg Fentanyl (Duragesic Patch 25 Mcg/Hr*) 25 mcg TRANSDERM Q72H [facility] Last Admin: 11/22/16 10:34 Dose: 25 mcg Heparin Sodium (Porcine) (Heparin Vial(*)) 5,000 units SUBCUT Q8HR [facility] Last Admin: 11/23/16 06:16 Dose: 5,000 units Sodium Chloride (Ns 0.9% 1000 Ml*) 1,000 mls @ 0 mls/hr IV PER RATE [facility] PRN Reason: KVO Last Admin: 11/11/16 05:44 Dose: 15 mls/hr Ceftriaxone Sodium 2 gm/ (Sodium Chloride) 100 mls @ 200 mls/hr IVPB Q24H [facility] Last Admin: 11/23/16 08:13 Dose: 200 mls/hr Sodium Chloride (Ns 0.45% 1000 Ml Bag*) 1,000 mls @ 50 mls/hr IV PER RATE [facility] Last Admin: 11/22/16 16:34 Dose: 50 mls/hr Lactulose (Lactulose*) 30 ml NG TUBE DAILY PRN PRN Reason: CONSTIPATION Last Admin: 11/20/16 10:27 Dose: 30 ml Lorazepam (Ativan Inj*) 1 mg IV PUSH Q4H PRN PRN Reason: ANXIETY Last Admin: 11/22/16 17:20 Dose: 1 mg Methylprednisolone Sodium Succinate (Solu-Medrol 40 Mg) 20 mg IV DAILY [facility] Stop: 11/23/16 23:59 Last Admin: 11/23/16 08:13 Dose: 20 mg Metoprolol Tartrate (Lopressor Tab*) 25 mg PO BID [facility] Last Admin: 11/23/16 08:14 Dose: 25 mg Nicotine (Nicotine Patch 21 Mg/24 Hr*) 1 patch TRANSDERM DAILY [facility] Last Admin: 11/23/16 08:14 Dose: 1 patch Omeprazole (Prilosec Cap*) 20 mg PO 0730 [facility] Last Admin: 11/23/16 08:14 Dose: 20 mg Oxazepam (Serax Cap*) 10 mg G TUBE Q8H PRN PRN Reason: AGITATION Last Admin: 11/15/16 18:01 Dose: 10 mg Pharmacy Profile Note (Nicotine Patch Removal Note*) 1 note PATCH OFF 2100 [facility] Last Admin: 05/18/17 20:53 Dose: Not Given Pharmacy Profile Note (Fentanyl Patch Check Q Shift) 1 note N/A 0700,1900 [facility] Last Admin: 11/23/16 06:59 Dose: 1 note Polyvinyl Alcohol (Polyvinyl Alcohol 1.4% Opth*) 1 drop BOTH EYES Q2H PRN PRN Reason: DRY EYE Last Admin: 11/15/16 21:06 Dose: 1 drop Quetiapine Fumarate (Seroquel Tab*) 25 mg PO BID [facility] Last Admin: 11/22/16 20:53 Dose: 25 mg Senna (Senokot Tab*) 1 tab G TUBE DAILY [facility] Last Admin: 11/22/16 10:21 Dose: Not Given Thiamine HCl (Vitamin B-1 Tab*) 100 mg G TUBE DAILY [facility] Last Admin: 11/22/16 09:39 Dose: 100 mg Physical Exam: General: awake, alert, follows some commands, no resp distress, comfortable appearing, no diaphoresis; obese Head: normocephalic, atraumatic HEENT: no pallor, no icterus, moist mucous membranes Neck: soft, supple, no JVD CVS: normal rate, normal rhythm, no murmur Resp: bilateral air entry, no wheeze, exp rhonchi +/- rhales, no acc muscle use Abdomen: soft, nontender, nondistended, bowel sounds present Ext: pulses+, warm, no edema Skin: intact, no breakdown, no dryness; less flushed Neuro: awake, alert, follows some commands, doesnt verbalize much, moves all ext. Labs: Laboratory Results - last 24 hr 11/23/16 11/23/16 06:00 06:00 WBC 8.0 RBC 5.37 Hgb 14.1 Hct 46 MCV 86 MCH 26 L MCHC 31 RDW 19 H Plt Count 221 MPV 8 Sodium 149 H Potassium 3.4 L Chloride 107 Carbon Dioxide 27 Anion Gap 15 H BUN 28 H Creatinine 0.89 Est GFR ( Amer) 115.0 Est GFR (Non-Af Amer) 89.4 BUN/Creatinine Ratio 31.5 H Glucose 89 Calcium 9.4 Imaging: cxr 11/[address]; no clear infiltrate present. No effusion/ptx. CT head/MRI head imaging prior reviewed; previous cerebral edema but improved; no acute infarct on subsequent CT/MRI imaging. cxr 11/19 - post intubation - ett above marshal, RLL atelectasis vs infiltrate cxr 11/20 am - ett in place, RLL infiltrate more resolved but still present, appears linear and prob more atelectasis cxr 11/21 - low volumes noted with some atelectasis at bases, no clear infiltrate , minimal/no congestion Assessment: 51y M history of tobacco use, COPD, Cardiomyopathy, CAD, HLD, HTN, Syncope s/p PPM/ICD, sleep apnea, obesity, chronic hypoxia on home O2, ; brought in as Out of hospital cardiac arrest from home, atleast 20-30minutes of downtime before ROSC in the field. Rapid afib was the returning rhythm. -Out of hospital Cardiac Arrest; asystolic? - s/p hypothermia -Acute on Chronic Hypercapneic Respiratory Failure, improved -Acute on chronic Hypoxic Respiratory Failure; ext 11/16, reintubated 11/18; extubated 11/20 -severe sepsis; H.parainfluenza and Staph aureus pneumonia/tracheobronchitis -[place]; ischemic ATN, hypovolemia, septic atn -Atrial fibrillation; resolved -Hypoxic-Ischemic Encephelopathy -Macular Rash sulfa? -COPD -Right ventricular systolic dysfunction; RVH; mod pulm hypertension Plan: Neuro- off precedex. on buspar, on seroquel now. calm, no restless or agitation noted. pain control with fentanyl 25mcg patch q72h. cooperative, minimal answering of questions with yes/no, mummbles a lot. underlying anoxic brain injury. CVS- On 07/09 NS 50cc/hr infusion. hemodyn stable. no hypotension. good urine output, neg balance, warm ext. Mmetoprolol and norvasc for hypertension. CXR today and eval for congestion, +/- lasix today. Already negative fluid balance, diuresing on his own. Remains in NSR, no further afib noted. Resp- on NIV at night, NC in the day. Baseline 4 liters in the daytime with sats in low 90s and tolerating. less distress, secretions every now and then being suctioned when he brings them up, still poor cough but no signficant worsening in resp status noted, seems to be tolerating PO intake without occult aspiration occurring for now. Needs bipap at night for [place]/obesity, he was already noncompliant at home but episodes of hypoxia at night. Will need to see if he can obtain CPAP machine at night when he is discharged in the coming week if at all. Ceftriaxone as coverage for H/parainfluenza and staph aureus (day 6/ ). Still poor ability to clear secretions. Keep HOB>45, asp prec, freq posterior suctioning. ID-last temp 99.9, wbc 6. Sputum cx +. on ceftriaxone IV day 6. Low grade fevers? unclear source. Check c.diff from stool now that he has diarrhea. GI- Tolerating puree diet, doesnt eat full meal though. diarrhea+ now, send c.diff (has been on Abx and prolonged hospitalization). PPI for GI prophylaxis. Aspiration precaution. d/c stool softeners. d/c lactulose for now due to diarrhea. Renal- STEPHANIA improved, good urine output, neg balance now. CXR to be checked before lasix today. Hypernatremia noted, need to increase PO free water intake or will increase 1/2 NS infusion. Want to d/c caballero but he will be incontinent all over, will prob use [place] cath instead. Replete K as needed. Heme- hg stable, plt stable; no bleeding. Endo- FS as needed. Musculsk- none. PT/OT today. Wounds- pressure ulcer prophylaxis Nutrition- oral pureed diet DVT prophylaxis: heparin sq GI prophylaxis: PPI Central Line: no Arterial Line: no Caballero Cathetor: yes; strict i/o in setting of [place] Disposition: ICU post cardiac arrest, respiratory failure, encephelopathy; discharge planning. will need snf facility given poor functional status. PT /OT today. Code Status: Full Code Efrain Corona MD Office Clin Asst (Electronically Signed)
[2016-11-23] MEDS: Senna TAB G TUBE SCH (08:32)
[2016-11-23] MEDS: QUEtiapine TAB* 25 MG PO SCH ×2 (08:33→21:05)
[2016-11-23] MEDS: busPIRone TAB* 15 MG PO SCH ×2 (08:33→21:05)
[2016-11-23] MEDS ORDERED: KCL 10 MEQ/50 ML IVPREMIX* 10 MEQ/50 ML BAG IV ONE ×2 (08:40→08:41)
[2016-11-23] MEDS ORDERED: Potassium Chloride LIQUID* 20 MEQ PACKET PO ONE (08:42)
--- NOTE | 2016-11-23 08:53 | RAD ---
INDICATION: Congestion. COMPARISON: Comparison is made with a prior study from November 21, 2016. TECHNIQUE: A portable view of the chest was obtained. FINDINGS: Cardiac and mediastinal contours appear to be within normal limits. The lungs are underinflated. There are small infiltrates at both lung bases. At the right lung bases is suggestive of atelectasis. IMPRESSION: EXPIRATORY EXAM, SMALL BIBASILAR INFILTRATES
[2016-11-23] MEDS: Thiamine TAB* 100 MG TAB G TUBE SCH (09:47)
[2016-11-23] MEDS: Nicotine Patch Removal NOTE PATCH OFF SCH ×2 (17:27→21:06)
[2016-11-23] MEDS: LORazepam INJ* 2 MG/ML 1 ML VIAL IV PUSH PRN (18:14)
[2016-11-24] MEDS: Albuterol/Ipratropium NEB.SOL* Albuterol 2.5 MG/Ipratropium 0.5 MG 3 ML INH SCH ×6 (04:05→23:02)
[2016-11-24] MEDS: Heparin VIAL(*) 5000 UNITS/ML VIAL (FIVE THOUSAND) SUBCUT SCH ×3 (05:43→22:00)
[2016-11-24 05:49] LABS: Hematocrit 45 % (42-52); Hemoglobin 13.5 g/dl (14.0-18.0); Mean Corpuscular HGB Conc 30 g/dl (31-36); Mean Corpuscular Hemoglobin 26 pg (27-31); Mean Corpuscular Volume 85 fL (80-94); Mean Platelet Volume 8 um3 (7.4-10.4); Red Blood Count 5.27 10^6/ul (4.0-5.4); Red Cell Distribution Width 19 % (10.5-15); White Blood Count 11.8 10^3/ul (3.5-10.8)
[2016-11-24 05:50] LABS: Comments Flag Yes
[2016-11-24] MEDS: NS 0.45% 1000 ML BAG* 1,000 ML IV SCH (05:57)
[2016-11-24 06:00] LABS: BUN/Creatinine Ratio 29.3 (8-20); Calcium 9.4 mg/dL (8.6-10.3); EGFR African American 126.4 (>60); EGFR Non-African American 98.3 (>60); Potassium 3.2 mmol/L (3.5-5.0)
[2016-11-24] MEDS: fentaNYL Patch Check Q Shift 1 NOTE SCH ×2 (07:04→19:21)
[2016-11-24] MEDS: Senna TAB G TUBE SCH (07:50)
[2016-11-24] MEDS: Metoprolol Tartrate TAB* 25 MG PO SCH ×2 (08:01→20:16)
[2016-11-24] MEDS: Thiamine TAB* 100 MG TAB G TUBE SCH (08:01)
[2016-11-24] MEDS: QUEtiapine TAB* 25 MG PO SCH ×2 (08:01→20:16)
[2016-11-24] MEDS: busPIRone TAB* 15 MG PO SCH ×2 (08:01→20:16)
[2016-11-24] MEDS: amLODIPine TAB* 5 MG PO SCH (08:01)
[2016-11-24] MEDS: Omeprazole CAP* 20 MG PO SCH (08:01)
[2016-11-24] MEDS: Nicotine PATCH 21 MG/24 HR* PATCH TRANSDERM SCH (08:01)
[2016-11-24] MEDS: LORazepam INJ* 2 MG/ML 1 ML VIAL IV PUSH PRN ×3 (08:22→23:04)
[2016-11-24] MEDS: Potassium Chloride LIQUID* 20 MEQ PACKET PO SCH (08:44)
--- NOTE | 2016-11-24 08:59 | PN ---
Progress Note - Progress Note Note: Progress Note Critical Care 24 hour events/significant events: -on NC all day yesterday, sat in chair, tolerated PO diet with pureed food but doesnt finish all. No distress. overnight on bipap. -low grade 100.2, secretions still being suctioned from posterior oropharynx. patient has cough but not as effective to clear completely -follows some commands, smiles, says 'yes' and 'no', tries to verbalize -ativan this morning for some restlessness -remains on hiflow salter cannula at 10 lpm o2; sats 88-92%, rr 18-20 -diarrhea has improved, flexiseal removed yesterday Tele: NSR Vitals: Vital Signs Temp 100.2 F 11/24/16 08:30 Pulse 102 11/24/16 08:30 Resp 30 11/24/16 08:30 BP 167/77 11/24/16 08:00 Pulse Ox 90 11/24/16 08:30 Intake & Output 11/23/16 11/24/16 11/24/16 18:59 06:59 18:59 Intake Total 562 759 Output Total 800 1225 Balance -238 -466 Weight 270 lb 11.642 oz Intake: IV Fluids 562 759 NS (0.45%) 562 759 Oral 0 Output: [place] 800 1225 O2/Vent: NIV 16/8 overnight; sat 92-94%, no distress; tv 900-1100, rr 22; daytime 10 Lpm NC, sats 88-92% Infusions: 1/2 ns @ 50 Medications: Acetaminophen (Tylenol Adult Liq*) 650 mg G TUBE Q6H PRN PRN Reason: TEMP > 38.3 DEG C Last Admin: 11/18/16 18:00 Dose: 650 mg Albuterol/Ipratropium (Duoneb (Albuterol 2.5 Mg/Ipratropium 0.5 Mg)) 1 neb INH Q4H [facility] Last Admin: 11/24/16 07:42 Dose: 1 neb Amlodipine Besylate (Norvasc Tab*) 5 mg PO DAILY [facility] Last Admin: 11/24/16 08:01 Dose: 5 mg Buspirone HCl (Buspar Tab *) 15 mg PO BID [facility] Last Admin: 11/24/16 08:01 Dose: 15 mg Fentanyl (Duragesic Patch 25 Mcg/Hr*) 25 mcg TRANSDERM Q72H [facility] Last Admin: 11/22/16 10:34 Dose: 25 mcg Heparin Sodium (Porcine) (Heparin Vial(*)) 5,000 units SUBCUT Q8HR [facility] Last Admin: 11/24/16 05:43 Dose: 5,000 units Sodium Chloride (Ns 0.9% 1000 Ml*) 1,000 mls @ 0 mls/hr IV PER RATE [facility] PRN Reason: KVO Last Admin: 11/11/16 05:44 Dose: 15 mls/hr Ceftriaxone Sodium 2 gm/ (Sodium Chloride) 100 mls @ 200 mls/hr IVPB Q24H [facility] Last Admin: 11/24/16 08:03 Dose: 200 mls/hr Sodium Chloride (Ns 0.45% 1000 Ml Bag*) 1,000 mls @ 50 mls/hr IV PER RATE [facility] Last Admin: 11/24/16 05:57 Dose: 50 mls/hr Lorazepam (Ativan Inj*) 1 mg IV PUSH Q4H PRN PRN Reason: ANXIETY Last Admin: 11/24/16 08:22 Dose: 1 mg Metoprolol Tartrate (Lopressor Tab*) 25 mg PO BID [facility] Last Admin: 11/24/16 08:01 Dose: 25 mg Nicotine (Nicotine Patch 21 Mg/24 Hr*) 1 patch TRANSDERM DAILY [facility] Last Admin: 11/24/16 08:01 Dose: 1 patch Omeprazole (Prilosec Cap*) 20 mg PO 0730 [facility] Last Admin: 11/24/16 08:01 Dose: 20 mg Oxazepam (Serax Cap*) 10 mg G TUBE Q8H PRN PRN Reason: AGITATION Last Admin: 11/15/16 18:01 Dose: 10 mg Pharmacy Profile Note (Nicotine Patch Removal Note*) 1 note PATCH OFF 2100 [facility] Last Admin: 11/23/16 21:06 Dose: Not Given Pharmacy Profile Note (Fentanyl Patch Check Q Shift) 1 note N/A 0700,1900 [facility] Last Admin: 11/24/16 07:04 Dose: 1 note Polyvinyl Alcohol (Polyvinyl Alcohol 1.4% Opth*) 1 drop BOTH EYES Q2H PRN PRN Reason: DRY EYE Last Admin: 11/15/16 21:06 Dose: 1 drop Potassium Chloride (Klor-Con Liquid*) 40 meq PO DAILY [facility] Last Admin: 11/24/16 08:44 Dose: 40 meq Potassium Chloride (Klor-Con Liquid*) 40 meq PO ONCE ONE Stop: 11/24/16 16:01 Quetiapine Fumarate (Seroquel Tab*) 25 mg PO BID [facility] Last Admin: 11/24/16 08:01 Dose: 25 mg Senna (Senokot Tab*) 1 tab G TUBE DAILY [facility] Last Admin: 11/24/16 07:50 Dose: Not Given Thiamine HCl (Vitamin B-1 Tab*) 100 mg G TUBE DAILY [facility] Last Admin: 11/24/16 08:01 Dose: 100 mg Physical Exam: General: awake, alert, follows some commands, no resp distress, comfortable appearing, no diaphoresis; obese Head: normocephalic, atraumatic HEENT: no pallor, no icterus, moist mucous membranes Neck: soft, supple, no JVD CVS: normal rate, normal rhythm, no murmur Resp: bilateral air entry, no wheeze, scattered rhonchi, no acc muscle use Abdomen: soft, nontender, nondistended, bowel sounds present Ext: pulses+, warm, no edema Skin: intact, no breakdown, no dryness; less flushed Neuro: awake, alert, follows some commands, moves all ext. tried to verbalize but speech difficulty/soft speech Labs: Laboratory Results - last 24 hr 11/24/16 11/24/16 05:30 05:30 WBC 11.8 H RBC 5.27 Hgb 13.5 L Hct 45 MCV 85 MCH 26 L MCHC 30 L RDW 19 H Plt Count 195 MPV 8 Sodium 146 H Potassium 3.2 L Chloride 111 Carbon Dioxide 27 Anion Gap 8 BUN 24 Creatinine 0.82 Est GFR ( Amer) 126.4 Est GFR (Non-Af Amer) 98.3 BUN/Creatinine Ratio 29.3 H Glucose 90 Calcium 9.4 Imaging: cxr 11/[address]; no clear infiltrate present. No effusion/ptx. CT head/MRI head imaging prior reviewed; previous cerebral edema but improved; no acute infarct on subsequent CT/MRI imaging. cxr 11/19 - post intubation - ett above marshal, RLL atelectasis vs infiltrate cxr 11/20 am - ett in place, RLL infiltrate more resolved but still present, appears linear and prob more atelectasis cxr 11/21 - low volumes noted with some atelectasis at bases, no clear infiltrate , minimal/no congestion cxr 11/23 - low volumes, basilar atelectasis Assessment: 51y M history of tobacco use, COPD, Cardiomyopathy, CAD, HLD, HTN, Syncope s/p PPM/ICD, sleep apnea, obesity, chronic hypoxia on home O2, ; brought in as Out of hospital cardiac arrest from home, atleast 20-30minutes of downtime before ROSC in the field. Rapid afib was the returning rhythm. -Out of hospital Cardiac Arrest; asystolic? - s/p hypothermia -Acute on Chronic Hypercapneic Respiratory Failure, improved -Acute on chronic Hypoxic Respiratory Failure; ext 11/16, reintubated 11/18; extubated 11/20 -severe sepsis; H.parainfluenza and Staph aureus pneumonia/tracheobronchitis -[place]; ischemic ATN, hypovolemia, septic atn -Atrial fibrillation; resolved -Hypoxic-Ischemic Encephelopathy -Macular Rash sulfa? -COPD -Right ventricular systolic dysfunction; RVH; mod pulm hypertension Plan: Neuro- on buspar and seroquel. ativan prn for restless/agitation as needed. pain control with fentanyl 25mcg patch q72h. cooperative, minimal answering of questions with yes/no, mummbles a lot. underlying anoxic brain injury. CVS- 1/2 NS 50cc/hr infusion. appears euvolemic. restarted lasix 20mg po daily with KCL repletion daily also. Autodiuresing himself otherwise. hemodyn stable. good urine output, neg balance, warm ext. Metoprolol and norvasc for hypertension. Remains in NSR, no further afib noted. Resp- on NIV at night, NC in the day. Baseline 4 Lpm O2 but at 10lpm now, weaning during the day occurs, but remains intermittently hypoxic from multiple etiologies - I feel there is more atelectasis and poor ability to clear all secretions that hinders his o2 sat. He does not appear to be in any resp distress. Secretions being suctioned, doesnt clear secretions adequately; no signficant worsening in resp status noted. Seems to be tolerating PO intake without occult aspiration occurring for now. Needs bipap at night for [place]/ obesity, he was already noncompliant at home but episodes of hypoxia at night. Ceftriaxone as coverage for H/parainfluenza and staph aureus (day 01/11). Still poor ability to clear secretions. Keep HOB>45, asp prec, freq posterior suctioning. Will obtain ENT eval for VC dysfunction, he was intubated 3x past 2 + weeks. ID-last temp 100.2, wbc up to 11 today. Sputum cx +. on ceftriaxone IV day 01/11. D/C abx after today and monitor tomorrow. C.diff neg, diarrhea improved. GI- Tolerating puree diet, doesnt eat full meal though. Calorie count to eval nutritional status. Will try to avoid any feeding tubes. Nutrition consult to follow. diarrhea resolved, c.diff negative. PPI for GI prophylaxis. Aspiration precaution. d/c stool softeners/lactulose Renal- [place]IA improved, good urine output, neg balance now. No congestion on CXR. Lasix 20mg po daily. Replete Kcl 40meq bid today, then daily 40meq. On 1/2NS infusion, can increase free water PO intake. Hypernatremia slowly improving. D/ C caballero today? observe with [place] cath if needed. Heme- hg stable, plt stable; no bleeding. Endo- FS as needed. Musculsk- none. PT/OT Wounds- pressure ulcer prophylaxis Nutrition- oral pureed diet DVT prophylaxis: heparin sq GI prophylaxis: PPI Central Line: no Arterial Line: no Caball[place] Cathetor: yes; strict i/o in setting of [place] Disposition: ICU post cardiac arrest, respiratory failure, encephelopathy; discharge planning. will need [facility] facility given poor functional status, a center for brain injury would benefit as well as good respiratory support. Consider LTACH. Currently still labile resp status, completely dependant on care/feeding. Family to discuss future code status in case of acute illness as well as chronic illness/deterioration and even future cardiac arrest given current medical state after prior events. Code Status: Full Code Total Critical Care time 40 minutes, not including teaching/procedures. Efrain Corona MD Production Maintenance Mechanic (Electronically Signed)
[2016-11-24] MEDS ORDERED: Potassium Chloride LIQUID* 20 MEQ PACKET PO ONE (16:00)
[2016-11-24] MEDS: Nicotine Patch Removal NOTE PATCH OFF SCH (20:17)
[2016-11-25] MEDS: Albuterol/Ipratropium NEB.SOL* Albuterol 2.5 MG/Ipratropium 0.5 MG 3 ML INH SCH ×6 (04:29→23:00)
[2016-11-25 05:51] LABS: Hematocrit 47 % (42-52); Hemoglobin 14.1 g/dl (14.0-18.0); Mean Corpuscular HGB Conc 30 g/dl (31-36); Mean Corpuscular Hemoglobin 26 pg (27-31); Mean Corpuscular Volume 86 fL (80-94); Mean Platelet Volume 8 um3 (7.4-10.4); Red Blood Count 5.46 10^6/ul (4.0-5.4); Red Cell Distribution Width 19 % (10.5-15)
[2016-11-25 05:54] LABS: Comments Flag Yes
[2016-11-25 06:17] LABS: Blood Urea Nitrogen 20 mg/dL (6-24); CO2 Carbon Dioxide 27 mmol/L (22-32); Calcium 9.8 mg/dL (8.6-10.3); Chloride 110 mmol/L (101-111); EGFR African American 142.3 (>60); EGFR Non-African American 110.6 (>60); Glucose 91 mg/dL (70-100); Sodium 145 mmol/L (133-145)
[2016-11-25] MEDS: Heparin VIAL(*) 5000 UNITS/ML VIAL (FIVE THOUSAND) SUBCUT SCH ×3 (06:24→22:01)
[2016-11-25] MEDS: NS 0.45% 1000 ML BAG* 1,000 ML IV SCH (06:28)
[2016-11-25] MEDS: amLODIPine TAB* 5 MG PO SCH (07:55)
[2016-11-25] MEDS: Senna TAB G TUBE SCH (07:55)
[2016-11-25] MEDS: Metoprolol Tartrate TAB* 25 MG PO SCH ×2 (07:55→20:06)
[2016-11-25] MEDS: Omeprazole CAP* 20 MG PO SCH (07:55)
[2016-11-25] MEDS: QUEtiapine TAB* 25 MG PO SCH ×2 (07:55→20:07)
[2016-11-25] MEDS: busPIRone TAB* 15 MG PO SCH ×2 (07:55→20:06)
[2016-11-25] MEDS: Thiamine TAB* 100 MG TAB G TUBE SCH (07:55)
[2016-11-25] MEDS: Nicotine PATCH 21 MG/24 HR* PATCH TRANSDERM SCH (07:55)
[2016-11-25] MEDS: Potassium Chloride LIQUID* 20 MEQ PACKET PO SCH (07:56)
[2016-11-25] MEDS: LORazepam INJ* 2 MG/ML 1 ML VIAL IV PUSH PRN ×2 (08:14→13:15)
[2016-11-25] MEDS: fentaNYL Patch Check Q Shift 1 NOTE SCH ×2 (08:42→18:55)
--- NOTE | 2016-11-25 08:53 | PN ---
Progress Note - Progress Note Note: Progress Note Critical Care 24 hour events/significant events: -on NC all day yesterday, sat in chair, tolerated PO diet with pureed food but poor intake amount, started more freq feeding. No distress. overnight on bipap. -remains on 10lpm of oxygen, saturations do fluctuate and he appears to look the same oxygenation smith. -low grade 100.4 tmax, secretions still being suctioned from posterior oropharynx, yellowish texture; antibiotics stopped 7/7 days complete. doesnt clear all secretions completely. -follows some commands, smiles, says 'yes' and 'no', tries to verbalize -remains on hiflow salter cannula at 10 lpm o2; sats 88-92%, rr 18-20 -diarrhea improved Tele: NSR, sinus tachy at times Vitals: Vital Signs Temp 99.8 F 11/25/16 06:00 Pulse 117 11/25/16 08:38 Resp 23 11/25/16 08:38 BP 164/81 11/25/16 06:00 Pulse Ox 88 11/25/16 08:38 Intake & Output 11/24/16 11/25/16 11/25/16 18:59 06:59 18:59 Intake Total 1035 761 Output Total 750 1250 Balance 285 -489 Weight 271 lb 13.279 oz Intake: IV Fluids 495 761 NS (0.45%) 495 761 Oral 540 Output: Urine 700 Caballero 750 550 Other: Date of Last Bowel 11/25/2016 Movement # Bowel Movements 1 Estimated Stool Amount Medium O2/Vent: NIV 16/8 overnight; sat 92-94%, no distress; tv 900-1100, rr 22; daytime 10 Lpm NC, sats 88-92% Infusions: 1/2 ns @ 50 Medications: Acetaminophen (Tylenol Adult Liq*) 650 mg G TUBE Q6H PRN PRN Reason: TEMP > 38.3 DEG C Last Admin: 11/18/16 18:00 Dose: 650 mg Albuterol/Ipratropium (Duoneb (Albuterol 2.5 Mg/Ipratropium 0.5 Mg)) 1 neb INH Q4H [facility] Last Admin: 11/25/16 08:38 Dose: 1 neb Amlodipine Besylate (Norvasc Tab*) 5 mg PO DAILY [facility] Last Admin: 11/25/16 07:55 Dose: 5 mg Buspirone HCl (Buspar Tab *) 15 mg PO BID [facility] Last Admin: 11/25/16 07:55 Dose: 15 mg Fentanyl (Duragesic Patch 25 Mcg/Hr*) 25 mcg TRANSDERM Q72H [facility] Last Admin: 11/22/16 10:34 Dose: 25 mcg Heparin Sodium (Porcine) (Heparin Vial(*)) 5,000 units SUBCUT Q8HR [facility] Last Admin: 11/25/16 06:24 Dose: 5,000 units Sodium Chloride (Ns 0.9% 1000 Ml*) 1,000 mls @ 0 mls/hr IV PER RATE [facility] PRN Reason: KVO Last Admin: 11/11/16 05:44 Dose: 15 mls/hr Sodium Chloride (Ns 0.45% 1000 Ml Bag*) 1,000 mls @ 50 mls/hr IV PER RATE [facility] Last Admin: 11/25/16 06:28 Dose: 50 mls/hr Lorazepam (Ativan Inj*) 1 mg IV PUSH Q4H PRN PRN Reason: ANXIETY Last Admin: 11/25/16 08:14 Dose: 1 mg Metoprolol Tartrate (Lopressor Tab*) 25 mg PO BID [facility] Last Admin: 11/25/16 07:55 Dose: 25 mg Nicotine (Nicotine Patch 21 Mg/24 Hr*) 1 patch TRANSDERM DAILY [facility] Last Admin: 11/25/16 07:55 Dose: 1 patch Omeprazole (Prilosec Cap*) 20 mg PO 0730 [facility] Last Admin: 11/25/16 07:55 Dose: 20 mg Oxazepam (Serax Cap*) 10 mg G TUBE Q8H PRN PRN Reason: AGITATION Last Admin: 11/15/16 18:01 Dose: 10 mg Pharmacy Profile Note (Nicotine Patch Removal Note*) 1 note PATCH OFF 2100 [facility] Last Admin: 11/24/16 20:17 Dose: 1 note Pharmacy Profile Note (Fentanyl Patch Check Q Shift) 1 note N/A 0700,1900 [facility] Last Admin: 11/25/16 08:42 Dose: 1 note Polyvinyl Alcohol (Polyvinyl Alcohol 1.4% Opth*) 1 drop BOTH EYES Q2H PRN PRN Reason: DRY EYE Last Admin: 11/15/16 21:06 Dose: 1 drop Potassium Chloride (Klor-Con Liquid*) 40 meq PO DAILY [facility] Last Admin: 11/25/16 07:56 Dose: 40 meq Quetiapine Fumarate (Seroquel Tab*) 25 mg PO BID [facility] Last Admin: 11/25/16 07:55 Dose: 25 mg Senna (Senokot Tab*) 1 tab G TUBE DAILY [facility] Last Admin: 11/25/16 07:55 Dose: 1 tab Thiamine HCl (Vitamin B-1 Tab*) 100 mg G TUBE DAILY [facility] Last Admin: 11/25/16 07:55 Dose: 100 mg Physical Exam: General: awake, alert, follows some commands, no resp distress, comfortable appearing, no diaphoresis; obese Head: normocephalic, atraumatic HEENT: no pallor, no icterus, moist mucous membranes Neck: soft, supple, no JVD CVS: normal rate, normal rhythm, no murmur Resp: bilateral air entry, no wheeze, scattered rhonchi, no acc muscle use Abdomen: soft, nontender, nondistended, bowel sounds present Ext: pulses+, warm, no edema Skin: intact, no breakdown, no dryness; less flushed Neuro: awake, alert, follows some commands, moves all ext. tried to verbalize but speech difficulty/soft speech Labs: Laboratory Results - last 24 hr 11/25/16 11/25/16 11/25/16 05:30 05:30 06:42 WBC 8.0 RBC 5.46 H Hgb 14.1 Hct 47 MCV 86 MCH 26 L MCHC 30 L RDW 19 H Plt Count 156 MPV 8 Sodium 145 Potassium TNP 3.9 Chloride 110 Carbon Dioxide 27 Anion Gap TNP BUN 20 Creatinine 0.74 Est GFR ( Amer) 142.3 Est GFR (Non-Af Amer) 110.6 BUN/Creatinine Ratio 27.0 H Glucose 91 Calcium 9.8 Imaging: cxr 11/[address]; no clear infiltrate present. No effusion/ptx. CT head/MRI head imaging prior reviewed; previous cerebral edema but improved; no acute infarct on subsequent CT/MRI imaging. cxr 11/19 - post intubation - ett above marshal, RLL atelectasis vs infiltrate cxr 11/20 am - ett in place, RLL infiltrate more resolved but still present, appears linear and prob more atelectasis cxr 11/21 - low volumes noted with some atelectasis at bases, no clear infiltrate , minimal/no congestion cxr 11/23 - low volumes, basilar atelectasis Assessment: 51y M history of tobacco use, COPD, Cardiomyopathy, CAD, HLD, HTN, Syncope s/p PPM/ICD, sleep apnea, obesity, chronic hypoxia on home O2, ; brought in as Out of hospital cardiac arrest from home, atleast 20-30minutes of downtime before ROSC in the field. Rapid afib was the returning rhythm. -Out of hospital Cardiac Arrest; asystolic? - s/p hypothermia -Acute on Chronic Hypercapneic Respiratory Failure, improved -Acute on chronic Hypoxic Respiratory Failure; ext 11/16, reintubated 11/18; extubated 11/20 -severe sepsis; H.parainfluenza and Staph aureus pneumonia/tracheobronchitis -STEPHANIA; ischemic ATN, hypovolemia, septic atn -Atrial fibrillation; resolved -Hypoxic-Ischemic Encephelopathy -Macular Rash sulfa? -COPD -Right ventricular systolic dysfunction; RVH; mod pulm hypertension Plan: Neuro- on buspar, seroquel, oxazepam. ativan prn for restless/agitation as needed. pain control with fentanyl 25mcg patch q72h. cooperative, minimal answering of questions with yes/no, mummbles a lot, fidgety but has some comprehension but lack of attention sometimes. underlying anoxic brain injury. CVS- 1/2 NS 50cc/hr infusion. making good urine, appears euvolemic, some positive balance each day otherwise. Holding lasix, daily KCL 40meq. hemodyn stable. Metoprolol and norvasc for hypertension. Remains in NSR, no further afib noted. Resp- on NIV at night, NC in the day. Baseline 4 Lpm O2 but at 10lpm now, weaning during the day occurs, but remains intermittently hypoxic from multiple etiologies - I feel there is more atelectasis and poor ability to clear all secretions that hinders his o2 sat. He does not appear to be in any resp distress now. Secretions being suctioned, doesnt clear secretions adequately; send sputum for culture again. Seems to be tolerating PO intake without occult aspiration occurring for now. Needs bipap at night for [place]/obesity, he was already noncompliant at home but episodes of hypoxia at night. Ceftriaxone as coverage for H/parainfluenza and staph aureus (course complete 7days on 11/24). Keep HOB>45, asp prec, freq posterior suctioning. Will obtain ENT eval for VC dysfunction, he was intubated 3x past 2+ weeks. ID-last temp 100.4, wbc down to 9. Ceftriaxone 7 day course complete 11/24 for Staph aureus/H.parainfluenza pneumona/bronchitis. C.diff neg, diarrhea improved. GI- Tolerating puree diet, doesnt eat full meal though. Calorie count to eval nutritional status. Will try to avoid any feeding tubes for now, consider this week. Nutrition consult. diarrhea resolved, c.diff negative. PPI for GI prophylaxis. Aspiration precaution. Renal- STEPHANIA improved, good urine output, no diuretics. Kcl 40meq daily. On 1/2NS @50cc/hr, try to increase free water PO intake. Hypernatremia slowly improving. Need to d/c caballero, attempt [place] cathetor. Heme- hg stable. Plt slowly coming down. PCN induced? off ceftriaxone now. not on H2 roshni. no evidence of swelling to consider dvt. Will place SCDs. would like to keep heparin sq for now and watch, if further drop tomorrow in plt, will d/c heparin. Endo- FS as needed. Musculsk- none. PT/OT Wounds- pressure ulcer prophylaxis Nutrition- oral pureed diet DVT prophylaxis: heparin sq GI prophylaxis: PPI Central Line: no Arterial Line: no Caballero Cathetor: yes; strict i/o in setting of STEPHANIA Disposition: ICU post cardiac arrest, respiratory failure, encephelopathy; discharge planning. will need [facility] facility given poor functional status, a center for brain injury would benefit, possible LTACH for respiratory issues also. Consider LTACH. Family to discuss future code status in case of acute illness as well as chronic illness/deterioration and even future cardiac arrest given current medical state after prior events. Code Status: Full Code Total Critical Care time 40 minutes, not including teaching/procedures. Efrain Corona MD Pump Service Supervisor (Electronically Signed)
[2016-11-25] MEDS: fentaNYL PATCH 25 MCG/HR TRANSDERM SCH (11:59)
[2016-11-25] MEDS: Nicotine Patch Removal NOTE PATCH OFF SCH (20:08)
[2016-11-26] MEDS: Albuterol/Ipratropium NEB.SOL* Albuterol 2.5 MG/Ipratropium 0.5 MG 3 ML INH SCH ×4 (02:59→19:56)
[2016-11-26] MEDS: LORazepam INJ* 2 MG/ML 1 ML VIAL IV PUSH PRN ×2 (03:15→13:29)
[2016-11-26] MEDS: Heparin VIAL(*) 5000 UNITS/ML VIAL (FIVE THOUSAND) SUBCUT SCH ×3 (05:56→21:42)
[2016-11-26] MEDS: fentaNYL Patch Check Q Shift 1 NOTE SCH (07:37)
[2016-11-26] MEDS: QUEtiapine TAB* 25 MG PO SCH ×2 (08:12→20:51)
[2016-11-26] MEDS: amLODIPine TAB* 5 MG PO SCH (08:12)
[2016-11-26] MEDS: Metoprolol Tartrate TAB* 25 MG PO SCH ×2 (08:12→20:51)
[2016-11-26] MEDS: Omeprazole CAP* 20 MG PO SCH (08:12)
[2016-11-26] MEDS: Potassium Chloride LIQUID* 20 MEQ PACKET PO SCH (08:12)
[2016-11-26] MEDS: Thiamine TAB* 100 MG TAB G TUBE SCH (08:13)
[2016-11-26] MEDS: busPIRone TAB* 15 MG PO SCH ×2 (08:13→20:51)
[2016-11-26] MEDS: Senna TAB G TUBE SCH (09:10)
[2016-11-26] MEDS: NS 0.45% 1000 ML BAG* 1,000 ML IV SCH (09:57)
[2016-11-26] MEDS ORDERED: Famotidine TAB* 20 MG PO ONE (11:38)
--- NOTE | 2016-11-26 11:57 | PN ---
Critical Care Services: Patient is awake but does not follow verbal commands. Is now about 3 weeks post arrest. Vital Signs: Temp Pulse Resp BP SpO2 FiO2 99.5 F 96 24 147/89 99 45 NOTE: Patient is on nasal O2 (and was on nasal O2 at home) Physical Exam: Gen:Mildly agitated HEENT:Pupils reactive Lungs:Occasional rhonchus. No wheezes or crackles Cardiac: Reg rhythm. No murmurs. Extremities: No cyanosis or edema. Neuro: Moves all exremities equally Fluid Balance (Past 24 Hours): 11/26/16 06:59 Intake Total 1229 Output Total 1525 Balance -296 Weight 269 lb 10oz Intake: IV Fluids 1149 ABX - CEFTRIAXONE 106 NS (0.45%) 1043 Oral 80 Output: Urine Villaseñor 1525 Other: Date of Last Bowel Movement # Bowel Movements Estimated Stool Amount Labs: None today Studies: None today. Nutrition: Regular diet (has to be fed) Impression: Irreversible anoxic encephalopathy - patient is incapable of independent existence. Plan: 1. Patient made DNI/DNR this AM (signed by patient's sister, who is the healthcare proxy). 2. Will transfer to floor for general supportive care, pending placement in an outpatient facility. 3. Patient has a group home dependence on nasal O2 (from COPD), which will continue.
[2016-11-26 17:04] LABS: Albumin 3.7 g/dL (3.2-5.2)
[2016-11-26] MEDS: Nicotine PATCH 21 MG/24 HR* PATCH TRANSDERM SCH (18:20)
--- NOTE | 2016-11-26 20:56 | PN ---
Progress Note - Progress Note Note: updated palliative care note With discussion with Dr. Lane, patient eligible for hospice with a terminal diagnosis of anoxic brain injury with secondary diagnosis of respiratory failure and cor pulmonale. Spoke with HCP, sister Nataly Melgoza who is interested in the hospice residence. Sister to follow up with Joy Hopper in the morning to make a decision.
--- NOTE | 2016-11-27 01:04 | CONS ---
PALLIATIVE CARE CONSULTATION: DATE OF CONSULT: 11/26/16 PRIMARY CARE PHYSICIAN: Cliff Martínez MD REFERRING PHYSICIAN: Aleksey Huang MD HOSPITAL COURSE: This is a 51-year-old male with a past medical history of COPD , obstructive sleep apnea, and tobacco use who presented back on 11/09/16 in cardiac respiratory arrest out of hospital. According to the notes, the son was living with his father when he heard a thump of the father falling out of his bed unconscious. EMS was called. They reported asystole and started him on CPR. He appeared to be down for about 20 minutes. He did get his pulse back on arrival into atrial fibrillation and he remained intubated on propofol and admitted to the intensive care unit. The patient has had a rather prolonged hospital course and was just transferred down from the ICU today. The patient after his arrest, he had therapeutic hypothermia. They felt his arrest was secondary to acute on chronic hypercapnic respiratory failure. He was extubated on the and reintubated on the for respiratory failure and extubated most recently on the . His hospital course was complicated by severe sepsis secondary to H. parainfluenzae and Staphylococcus aureus pneumonia and tracheobronchitis. He also suffered acute kidney injury with ischemic acute tubular necrosis, hypovolemia, and a septic ATN. He had atrial fibrillation on admission, which has since resolved and has had persisted with hypoxic ischemic encephalopathy with anoxic brain injury, which has resulted in palliative care consult. Social Work has been involved as there was concern as who was going to be delegated healthcare proxy. Floridalma Gomez on the met with the physician of [employer], who felt that Elvira Pérez,who is a sister, would be the healthcare proxy making legal decisions. A family meeting was held on the to discuss once the patient is extubated to recommend DNR/DNI. At that time, the patient's sister completed a MOLST form for DNR/DNI and this was signed on 11/26/16. According to the staff in the ICU, the patient's nutritional intake has been intermittent some with about 50% of his intake, some of his intake is about 25%. He does have to be fed. He did pass his speech/swallow evaluation on 11/21/16. He is intermittently combative, intermittently answers yes or no, not always appropriate answering yes or no. On my encounter, the patient is awake. He will open his eyes, but cannot keep them opened. He is restless, swinging his arms around intermittently, appears intermittently agitated, appears to be muttering nonsensical information. He is able to tell me his name is Micheal. Otherwise, unable to have any further meaningful conversation. He is not able to follow any commands other than able to open his eyes for me. Review of systems is limited due to the patient's anoxic brain injury. PAST MEDICAL HISTORY: Prior to this admission, the patient has a past medical history of COPD, tobacco use, obstructive sleep apnea, hypertension, anxiety, chronic pain, history of CHF, history of nephrolithiasis, hyperlipidemia, morbid obesity. As mentioned, inpatient medical problem list includes out of hospital cardiac arrest; status post hypothermia; acute on chronic hypercapnic respiratory failure, which has improved; acute on chronic hypoxic respiratory failure, which has since improved; severe sepsis; acute kidney injury; atrial fibrillation; hypoxic ischemic encephalopathy; COPD; right ventricular dysfunction with moderate pulmonary hypertension. PAST SURGICAL HISTORY: 1. History of a left total hip arthroplasty. 2. Cervical spine fusion. 3. Lumbar spinal fusion. 4. History of appendectomy. INPATIENT MEDICATIONS: 1. DuoNeb 1 neb q.6 hours. 2. Famotidine 20 mg daily. 3. Heparin 5000 units subcu t.i.d. 4. Lorazepam 1 mg every 4 hours as needed for anxiety. 5. Metoprolol 25 mg p.o. b.i.d. 6. Potassium chloride 20 mEq daily. 7. Seroquel 25 mg p.o. b.i.d. 8. Amlodipine 5 mg p.o. daily. 9. BuSpar 15 mg p.o. b.i.d. ALLERGIES: MORPHINE, hallucinations. CODEINE, IBUPROFEN, and NUBAIN. FAMILY HISTORY: Unable to obtain. SOCIAL HISTORY: As mentioned, the patient was living with his son prior to this admission with a history of tobacco use, was smoking up to half a pack per day for the past 39 years. No history of alcohol use. He has 2 children. He is . According to social work, Elvira Pérez, is the patient's sister and she has been deemed the healthcare proxy. She did sign the MOLST for DNR/DNI. REVIEW OF SYSTEMS: Unable to obtain due to the patient's anoxic brain injury. PHYSICAL EXAM: Vitals: Temp 98.3, pulse rate 100, respiratory rate 20, oxygen saturation 98% on 3 L, blood pressure 147/89. General: Intermittently restless and agitated. Head: Normocephalic. Pupils are dilated and sluggish. Anicteric. Oropharynx: Mucous membranes moist. Neck is supple. No lymphadenopathy. Cardiac: Tachycardia. Soft systolic murmur heard throughout. Respiratory: Coarse rhonchi bilaterally. No increased work of breathing. Abdomen: Morbidly obese. Extremities: Trace pretibial edema. Neurologic: The patient is able to tell me his name is Micheal. Unable to verbalize any other answers to questions. Unable to follow any commands. He is moving all extremities. LABORATORY DATA: White count 8, hemoglobin 14.1, hematocrit 47, platelets 156. INR is 1. Sodium 145, potassium 3.9, chloride 110, bicarb 27, BUN 20, creatinine 0.74. PERTINENT RADIOGRAPHIC INFORMATION: Brain MRI on 11/14/16 shows: 1. No acute intracranial process evident. Stigmata of probable mild chronic small vessel ischemic disease. 2. A 0.7 cm maximum dimension chronic lacunar infarct, perivascular space at the inferior right basal ganglion without change compared to 2015. EEG: This EEG with the patient intubated and sedated shows no epileptiform potentials. The slowing of the background may be secondary to the patient's medication at this point, but underlying encephalopathy due to the arrest may also be contributing. ASSESSMENT: This is a 51-year-old male with a past medical history of chronic obstructive pulmonary disease, obstructive sleep apnea, and morbid obesity who presented on the with an out of hospital cardiac arrest, was down for 20 minutes, has suffered multiple complications with hypercapnic and hypoxic respiratory failure with persisting hypoxic ischemic encephalopathy and anoxic brain injury without any significant recovery in his cognitive impairment. The patient is unable to have any meaningful interaction with me. I did attempt to call his sister, Elvira, phone number , but there was no answer. The patient is currently DNR/DNI. The question will be his nutritional intake if this can be maintained. I put in for Nutrition to do a calorie count. Patient unlikely able to meet his nutritional needs in the setting of his anoxic brain injury, at which point he is eligible for hospice, with a secondary diagnosis of severe COPD and cor pulmonale. I will attempt to try the sister again to discuss this further. I also put in for albumin and prealbumin to assess nutritional status since he has been here for almost 3 weeks now. Thank you for this consultation. I will follow along with you. TIME SPENT: Greater than 60 minutes spent doing this consultation, more than half the time spent in direct patient contact. CC: Cliff Martínez MD; Aleksey Huang MD* [id number]/[facility] #: [id number] MTDD
[2016-11-27] MEDS: Albuterol/Ipratropium NEB.SOL* Albuterol 2.5 MG/Ipratropium 0.5 MG 3 ML INH SCH ×4 (01:26→19:41)
[2016-11-27] MEDS: LORazepam INJ* 2 MG/ML 1 ML VIAL IV PUSH PRN ×2 (05:20→13:33)
[2016-11-27] MEDS: Heparin VIAL(*) 5000 UNITS/ML VIAL (FIVE THOUSAND) SUBCUT SCH ×3 (05:23→22:10)
[2016-11-27] MEDS: Metoprolol Tartrate TAB* 25 MG PO SCH ×2 (09:33→22:11)
[2016-11-27] MEDS: Potassium Chloride LIQUID* 20 MEQ PACKET PO SCH (09:33)
[2016-11-27] MEDS: amLODIPine TAB* 5 MG PO SCH (09:33)
[2016-11-27] MEDS: Famotidine TAB* 20 MG PO SCH (09:33)
[2016-11-27] MEDS: busPIRone TAB* 15 MG PO SCH ×2 (09:33→22:42)
[2016-11-27] MEDS: QUEtiapine TAB* 25 MG PO SCH ×2 (09:33→22:11)
--- NOTE | 2016-11-27 13:53 | PN ---
Subjective Date of Service: 11/27/16 Interval History: Patient seen and examined at bedside. Patient very agitated and, at one point, made a fist. Appeared to be attempting communication but unable to effectively verbalize thoughts. No acute nursing concerns, other than agitation. Family History: Findings - Both parents had COPD Social History: Findings - Smoker. 2 children. SDM unknown if any. Past Medical History: Unchanged from Admission - L IKE, cervical and lumbar spine fusion, appy. COPD, [place], HTN, HL, [place], chronic pain. Objective Active Medications: Albuterol/Ipratropium (Duoneb (Albuterol 2.5 Mg/Ipratropium 0.5 Mg)) 1 neb INH Q6H [facility] Last Admin: 11/27/16 13:28 Dose: 1 neb Amlodipine Besylate (Norvasc Tab*) 5 mg PO DAILY [facility] Last Admin: 11/27/16 09:33 Dose: 5 mg Buspirone HCl (Buspar Tab *) 15 mg PO BID [facility] Last Admin: 11/27/16 09:33 Dose: 15 mg Famotidine (Pepcid Tab*) 20 mg PO DAILY [facility] Last Admin: 11/27/16 09:33 Dose: 20 mg Heparin Sodium (Porcine) (Heparin Vial(*)) 5,000 units SUBCUT Q8HR [facility] Last Admin: 11/27/16 13:36 Dose: 5,000 units Lorazepam (Ativan Inj*) 1 mg IV PUSH Q4H PRN PRN Reason: ANXIETY Last Admin: 11/27/16 13:33 Dose: 1 mg Metoprolol Tartrate (Lopressor Tab*) 25 mg PO BID [facility] Last Admin: 11/27/16 09:33 Dose: 25 mg Potassium Chloride (Klor-Con Liquid*) 40 meq PO DAILY [facility] Last Admin: 11/27/16 09:33 Dose: Not Given Quetiapine Fumarate (Seroquel Tab*) 25 mg PO BID [facility] Last Admin: 11/27/16 09:33 Dose: 25 mg Vital Signs 11/26/16 11/26/16 11/26/16 15:00 19:50 19:58 Temperature 99.1 F 98.3 F Pulse Rate 113 122 114 Respiratory 28 22 20 Rate Blood Pressure 176/97 149/81 (mmHg) O2 Sat by Pulse 96 98 96 Oximetry 11/26/16 11/26/1617 20:00 23:36 01:27 Temperature Pulse Rate 117 117 104 Respiratory 20 24 20 Rate Blood Pressure 133/94 (mmHg) O2 Sat by Pulse 94 96 Oximetry 11/27/16 11/27/16 11/27/16 03:30 05:20 06:20 Temperature 97.7 F Pulse Rate 118 Respiratory 24 18 18 Rate Blood Pressure 120/80 (mmHg) O2 Sat by Pulse 94 Oximetry 11/27/16 11/27/16 11/27/16 07:49 08:00 08:07 Temperature 99.7 F Pulse Rate 120 96 Respiratory 18 16 23 Rate Blood Pressure 153/93 (mmHg) O2 Sat by Pulse 94 95 Oximetry 11/27/16 11/27/16 13:28 13:33 Temperature Pulse Rate 23 Respiratory 96 20 Rate Blood Pressure (mmHg) O2 Sat by Pulse 95 Oximetry Oxygen Devices in Use Now: Nasal Cannula - 3.5L Appearance: Male patient, sitting up in bed, mildly agitated but NAD Eyes: No Scleral Icterus Ears/Nose/Mouth/Throat: Mucous Membranes Moist Respiratory: Symmetrical Chest Expansion and Respiratory Effort, Clear to Auscultation - scattered rhonchi Cardiovascular: NL Sounds; No Murmurs; No JVD, RRR Abdominal: NL Sounds; No Tenderness; No Distention Extremities: No Edema Neurological: - - Alert, oriented to self, unable to follow commands Lines/Tubes/Other Access: Clean, Dry and Intact [place], Clean, Dry and Intact Peripheral IV Nutrition: Taking PO's - with full assist Result Diagrams: 11/25/16 05:30 11/25/16 06:42 Additional Lab and Data: Lab Results 11/09/16 11/09/16 11/09/16 Range/Units 05:50 05:50 05:50 WBC 10.6 (3.5-10.8) 10^3/ul RBC 5.93 H (4.0-5.4) 10^6/ul Hgb 16.3 (14.0-18.0) g/dl Hct 55 H (42-52) % MCV 93 (80-94) fL MCH 27 (27-31) pg MCHC 30 L (31-36) g/dl RDW 19 H (10.5-15) % Plt Count 204 (150-450) 10^3/ul MPV 8 (7.4-10.4) um3 Immature Gran % (Auto) 10 H (0-9) % Neut % (Auto) 81.4 (38-83) % Lymph % (Auto) 13.9 L (25-47) % Barron % (Auto) 3.9 (1-9) % Eos % (Auto) 0.2 (0-6) % Baso % (Auto) 0.6 (0-2) % Absolute Neuts (auto) 8.6 H (1.5-7.7) 10^3/ul Absolute Lymphs (auto) 1.5 (1.0-4.8) 10^3/ul Absolute Monos (auto) 0.4 (0-0.8) 10^3/ul Absolute Eos (auto) 0 (0-0.6) 10^3/ul Absolute Basos (auto) 0.1 (0-0.2) 10^3/ul Absolute Nucleated RBC 0.07 10^3/ul Neutrophils % 79 (38-83) % Band Neutrophils % 4 (0-8) % Lymphocytes % 8 L (25-47) % Monocytes % 3 (0-13) % Metamyelocytes % 5 H (0-2) % Myelocytes % 1 (0-1) % Nucleated RBC % 0.7 Nucleated RBCs/100 WBC 1 H (0-0) Normal RBC Morphology Not Reportable Microcytosis 1+ Macrocytosis 1+ INR (Anticoag Therapy) 1.01 (0.89-1.11) APTT 29.2 (26.0-36.3) seconds Patient Temperature ABG pH (7.35-7.45) ABG pCO2 (35-45) mmHg ABG pO2 (80-100) mmHg ABG HCO3 (19-31) mmol/L ABG O2 Saturation (95-98) % ABG Base Excess (-2.0-2.0) Respiration Rate O2 Delivery Device Ventilator Type Vent Mode FiO2 Inspiratory Time PEEP Pressure Support Pressure Control EPAP IPAP BiPAP Sodium 134 (133-145) mmol/L Potassium 5.0 (3.5-5.0) mmol/L Chloride 87 L (101-111) mmol/L Carbon Dioxide 40 H (22-32) mmol/L Anion Gap 7 (2-11) mmol/L BUN 11 (6-24) mg/dL Creatinine 0.82 (0.67-1.17) mg/dL Est GFR ( Amer) 126.4 (>60) Est GFR (Non-Af Amer) 98.3 (>60) BUN/Creatinine Ratio 13.4 (8-20) Glucose 193 H (70-100) mg/dL Lactic Acid (0.5-2.0) mmol/L Calcium 9.6 (8.6-10.3) mg/dL Magnesium 2.1 (1.9-2.7) mg/dL Total Bilirubin 0.50 (0.2-1.0) mg/dL AST 23 (13-39) U/L ALT 20 (7-52) U/L Alkaline Phosphatase 75 (34-104) U/L Total Creatine Kinase 41 (10-223) U/L CK-MB (CK-2) 3.1 (0.6-6.3) ng/mL Troponin I 0.03 (<0.04) ng/mL B-Natriuretic Peptide ( - 100) pg/mL Total Protein 7.7 (6.4-8.9) g/dL Albumin 3.6 (3.2-5.2) g/dL Globulin 4.1 H (2-4) g/dL Albumin/Globulin Ratio 0.9 L (1-3) Thyroxine (T4) 4.60 L (6.09-12.23) mcg/mL Serum Alcohol < 10 (<10) mg/dL Blood Type Antibody Screen 11/09/16 11/09/16 11/09/16 Range/Units 05:50 05:50 05:50 WBC (3.5-10.8) 10^3/ul RBC (4.0-5.4) 10^6/ul Hgb (14.0-18.0) g/dl Hct (42-52) % MCV (80-94) fL MCH (27-31) pg MCHC (31-36) g/dl RDW (10.5-15) % Plt Count (150-450) 10^3/ul MPV (7.4-10.4) um3 Immature Gran % (Auto) (0-9) % Neut % (Auto) (38-83) % Lymph % (Auto) (25-47) % Barron % (Auto) (1-9) % Eos % (Auto) (0-6) % Baso % (Auto) (0-2) % Absolute Neuts (auto) (1.5-7.7) 10^3/ul Absolute Lymphs (auto) (1.0-4.8) 10^3/ul Absolute Monos (auto) (0-0.8) 10^3/ul Absolute Eos (auto) (0-0.6) 10^3/ul Absolute Basos (auto) (0-0.2) 10^3/ul Absolute Nucleated RBC 10^3/ul Neutrophils % (38-83) % Band Neutrophils % (0-8) % Lymphocytes % (25-47) % Monocytes % (0-13) % Metamyelocytes % (0-2) % Myelocytes % (0-1) % Nucleated RBC % Nucleated RBCs/100 WBC (0-0) Normal RBC Morphology Microcytosis Macrocytosis INR (Anticoag Therapy) (0.89-1.11) APTT (26.0-36.3) seconds Patient Temperature ABG pH (7.35-7.45) ABG pCO2 (35-45) mmHg ABG pO2 (80-100) mmHg ABG HCO3 (19-31) mmol/L ABG O2 Saturation (95-98) % ABG Base Excess (-2.0-2.0) Respiration Rate O2 Delivery Device Ventilator Type Vent Mode FiO2 Inspiratory Time PEEP Pressure Support Pressure Control EPAP IPAP BiPAP Sodium (133-145) mmol/L Potassium (3.5-5.0) mmol/L Chloride (101-111) mmol/L Carbon Dioxide (22-32) mmol/L Anion Gap (2-11) mmol/L BUN (6-24) mg/dL Creatinine (0.67-1.17) mg/dL Est GFR ( Amer) (>60) Est GFR (Non-Af Amer) (>60) BUN/Creatinine Ratio (8-20) Glucose (70-100) mg/dL Lactic Acid 5.7 H* (0.5-2.0) mmol/L Calcium (8.6-10.3) mg/dL Magnesium (1.9-2.7) mg/dL Total Bilirubin (0.2-1.0) mg/dL AST (13-39) U/L ALT (7-52) U/L Alkaline Phosphatase (34-104) U/L Total Creatine Kinase (10-223) U/L CK-MB (CK-2) (0.6-6.3) ng/mL Troponin I (<0.04) ng/mL B-Natriuretic Peptide 232 H ( - 100) pg/mL Total Protein (6.4-8.9) g/dL Albumin (3.2-5.2) g/dL Globulin (2-4) g/dL Albumin/Globulin Ratio (1-3) Thyroxine (T4) (6.09-12.23) mcg/mL Serum Alcohol (<10) mg/dL Blood Type A Positive Antibody Screen Negative 11/09/16 Range/Units 06:30 WBC (3.5-10.8) 10^3/ul RBC (4.0-5.4) 10^6/ul Hgb (14.0-18.0) g/dl Hct (42-52) % MCV (80-94) fL MCH (27-31) pg MCHC (31-36) g/dl RDW (10.5-15) % Plt Count (150-450) 10^3/ul MPV (7.4-10.4) um3 Immature Gran % (Auto) (0-9) % Neut % (Auto) (38-83) % Lymph % (Auto) (25-47) % Barron % (Auto) (1-9) % Eos % (Auto) (0-6) % Baso % (Auto) (0-2) % Absolute Neuts (auto) (1.5-7.7) 10^3/ul Absolute Lymphs (auto) (1.0-4.8) 10^3/ul Absolute Monos (auto) (0-0.8) 10^3/ul Absolute Eos (auto) (0-0.6) 10^3/ul Absolute Basos (auto) (0-0.2) 10^3/ul Absolute Nucleated RBC 10^3/ul Neutrophils % (38-83) % Band Neutrophils % (0-8) % Lymphocytes % (25-47) % Monocytes % (0-13) % Metamyelocytes % (0-2) % Myelocytes % (0-1) % Nucleated RBC % Nucleated RBCs/100 WBC (0-0) Normal RBC Morphology Microcytosis Macrocytosis INR (Anticoag Therapy) (0.89-1.11) APTT (26.0-36.3) seconds Patient Temperature Not Reportable ABG pH 7.18 L* (7.35-7.45) ABG pCO2 122 H* (35-45) mmHg ABG pO2 211 H (80-100) mmHg ABG HCO3 33.3 H (19-31) mmol/L ABG O2 Saturation 99.2 H (95-98) % ABG Base Excess 11.2 H (-2.0-2.0) Respiration Rate 12 O2 Delivery Device C2 Ventilator Type Not Reportable Vent Mode pcv+ FiO2 100 Inspiratory Time 1 PEEP 5 Pressure Support Not Reportable Pressure Control 28 EPAP Not Reportable IPAP Not Reportable BiPAP Not Reportable Sodium (133-145) mmol/L Potassium (3.5-5.0) mmol/L Chloride (101-111) mmol/L Carbon Dioxide (22-32) mmol/L Anion Gap (2-11) mmol/L BUN (6-24) mg/dL Creatinine (0.67-1.17) mg/dL Est GFR ( Amer) (>60) Est GFR (Non-Af Amer) (>60) BUN/Creatinine Ratio (8-20) Glucose (70-100) mg/dL Lactic Acid (0.5-2.0) mmol/L Calcium (8.6-10.3) mg/dL Magnesium (1.9-2.7) mg/dL Total Bilirubin (0.2-1.0) mg/dL AST (13-39) U/L ALT (7-52) U/L Alkaline Phosphatase (34-104) U/L Total Creatine Kinase (10-223) U/L CK-MB (CK-2) (0.6-6.3) ng/mL Troponin I (<0.04) ng/mL B-Natriuretic Peptide ( - 100) pg/mL Total Protein (6.4-8.9) g/dL Albumin (3.2-5.2) g/dL Globulin (2-4) g/dL Albumin/Globulin Ratio (1-3) Thyroxine (T4) (6.09-12.23) mcg/mL Serum Alcohol (<10) mg/dL Blood Type Antibody Screen Microbiology and Other Data: Microbiology 05/19/17 11:05 Stool Gross Appearance - Final Stool C. difficile DNA Amplification - Final 027 Presumptive NEGATIVE Toxigenic C.diff NEGATIVE 11/18/16 10:56 Gram Stain - Final Sputum Sputum Culture - Final Staphylococcus Aureus Haemophilus Parainfluenzae Normal Mere 11/10/16 06:20 Aerobic Blood Culture - Final Blood Venous No Growth Day 5 Anaerobic Blood Culture - Final No Growth Day 5 Blood Culture - Final 11/09/16 09:10 Nasal Screen MRSA (PCR)([facility]ARD) - Final Nasal Mrsa Negative Assess/Plan/Problems-Billing Assessment: Mr. Doe is a 51 yo male with a PMH of COPD, [place], HTN, anxiety, chronic pain, CHF, HLD, morbid obesity and nephrolithiasis who presented to the ED on 11/09/16 as a cardiac respiratory arrest at home; patient was down for 20 minutes but EMS was able to achieve ROSC and a returning rhythm of atrial fibrillation. Patient able to be extubated after complicated course but now with anoxic brain injury. - Patient Problems (1) Comfort measures only status Code(s): Z51.5 - ENCOUNTER FOR PALLIATIVE CARE Comment: Patient s/p cardiac respiratory arrest on 11/09/16, now with anoxic brain injury. Plan for discharge to [facility] or SNF with hospice. (2) Cardiac arrest Code(s): I46.9 - CARDIAC ARREST, CAUSE UNSPECIFIED Comment: On 11/09/16 - reported asytole in field With ROSC out in the field, returning rhythm of atrial fibrillation, and therapeutic hypothermia. (3) Acute on chronic respiratory failure with hypoxia and hypercapnia Code(s): J96.21 - ACUTE AND CHRONIC RESPIRATORY FAILURE WITH HYPOXIA; J96.22 - ACUTE AND CHRONIC RESPIRATORY FAILURE WITH HYPERCAPNIA Comment: Suspected cause of patient's cardiac arrest, now improved Continue chronic O2 Plan for hospice sign on (4) Hypoxic ischemic encephalopathy [HIE], unspecified Code(s): P91.60 - HYPOXIC ISCHEMIC ENCEPHALOPATHY [HIE], UNSPECIFIED Comment: With anoxic brain injury Appreciate palliative care consult. Patient qualifies for hospice, discharge planning in process. (5) COPD (chronic obstructive pulmonary disease) Code(s): J44.9 - CHRONIC OBSTRUCTIVE PULMONARY DISEASE, UNSPECIFIED Comment: Continue prn nebulizers. (6) Chronic pain Code(s): G89.29 - OTHER CHRONIC PAIN Comment: Suspect pain may be lending to patient's agitation. Resume home methadone (patient with allergies to morphine and codeine). (7) HTN (hypertension) Code(s): I10 - ESSENTIAL (PRIMARY) HYPERTENSION Comment: Mostly controlled. Continue amlodipine. (8) DVT prophylaxis Code(s): MAN2768 - Comment: SQ heparin (9) DNR (do not resuscitate) Status and Disposition: Inpatient admission. [facility] or SNF with hospice sign on.
[2016-11-27] MEDS ORDERED: LORazepam TAB(*) 1 MG PO PRN ×2 (13:59→14:19)
[2016-11-27] MEDS: Methadone TAB* 10 MG PO SCH ×2 (15:18→22:10)
[2016-11-28] MEDS: Albuterol/Ipratropium NEB.SOL* Albuterol 2.5 MG/Ipratropium 0.5 MG 3 ML INH SCH ×2 (02:03→07:14)
[2016-11-28] MEDS: Heparin VIAL(*) 5000 UNITS/ML VIAL (FIVE THOUSAND) SUBCUT SCH (05:59)
[2016-11-28 08:22] VITALS: BP 144/95
--- NOTE | 2016-11-28 08:47 | DCNOTE ---
Subjective Date of Service: 11/28/16 Interval History: Patient seen and examined at bedside. Patient mouths intelligible, nonsensical words. Unable to determine what he understands or is trying to communicate. Appears more calm and rested. No acute nursing concerns. Family History: Findings - Both parents had COPD Social History: Findings - Smoker. 2 children. SDM unknown if any. Past Medical History: Unchanged from Admission - L IKE, cervical and lumbar spine fusion, appy. COPD, [place], HTN, HL, [place], chronic pain. Objective Active Medications: Albuterol/Ipratropium (Duoneb (Albuterol 2.5 Mg/Ipratropium 0.5 Mg)) 1 neb INH Q6H [facility] Last Admin: 11/28/16 07:14 Dose: 1 neb Amlodipine Besylate (Norvasc Tab*) 5 mg PO DAILY [facility] Last Admin: 11/27/16 09:33 Dose: 5 mg Buspirone HCl (Buspar Tab *) 15 mg PO BID [facility] Last Admin: 11/27/16 22:42 Dose: 15 mg Famotidine (Pepcid Tab*) 20 mg PO DAILY [facility] Last Admin: 11/27/16 09:33 Dose: 20 mg Heparin Sodium (Porcine) (Heparin Vial(*)) 5,000 units SUBCUT Q8HR [facility] Last Admin: 11/28/16 05:59 Dose: 5,000 units Lorazepam (Ativan Inj*) 1 mg IV PUSH Q4H PRN PRN Reason: ANXIETY Last Admin: 11/27/16 13:33 Dose: 1 mg Lorazepam (Ativan Tab(*)) 1 mg PO Q4H PRN PRN Reason: ANXIETY Methadone HCl (Dolophine Tab*) 20 mg PO TID [facility] Last Admin: 11/27/16 22:10 Dose: 20 mg Metoprolol Tartrate (Lopressor Tab*) 25 mg PO BID [facility] Last Admin: 11/27/16 22:11 Dose: 25 mg Potassium Chloride (Klor-Con Liquid*) 40 meq PO DAILY [facility] Last Admin: 11/27/16 09:33 Dose: Not Given Quetiapine Fumarate (Seroquel Tab*) 25 mg PO BID [facility] Last Admin: 11/27/16 22:11 Dose: 25 mg Vital Signs 05/23/17 05/23/17 05/23/17 13:28 13:33 14:33 Temperature Pulse Rate 23 Respiratory 96 20 16 Rate Blood Pressure (mmHg) O2 Sat by Pulse 95 Oximetry 11/27/16 11/27/16 11/27/16 15:16 15:18 15:25 Temperature 98.6 F Pulse Rate 130 Respiratory 14 20 Rate Blood Pressure 115/96 (mmHg) O2 Sat by Pulse 95 95 Oximetry 11/27/16 11/27/16 11/27/16 16:49 19:42 20:00 Temperature Pulse Rate 103 Respiratory 16 20 18 Rate Blood Pressure (mmHg) O2 Sat by Pulse 98 Oximetry 11/27/16 11/27/16 11/27/16 20:13 22:10 23:37 Temperature 97.9 F Pulse Rate 109 109 Respiratory 18 20 22 Rate Blood Pressure 126/89 144/91 (mmHg) O2 Sat by Pulse 96 96 Oximetry 11/28/16 11/28/16 11/28/16 00:10 02:04 03:51 Temperature 98.0 F Pulse Rate 103 91 Respiratory 18 12 18 Rate Blood Pressure 135/79 (mmHg) O2 Sat by Pulse 96 97 Oximetry 11/28/16 11/28/16 07:18 07:37 Temperature 96.6 F Pulse Rate 102 101 Respiratory 18 20 Rate Blood Pressure 144/95 (mmHg) O2 Sat by Pulse 96 91 Oximetry Oxygen Devices in Use Now: Nasal Cannula - 3.5L Appearance: Male patient, lying in bed, NAD Eyes: No Scleral Icterus Ears/Nose/Mouth/Throat: Mucous Membranes Moist Respiratory: Symmetrical Chest Expansion and Respiratory Effort, Clear to Auscultation - scattered rhonchi Cardiovascular: NL Sounds; No Murmurs; No JVD, RRR Abdominal: NL Sounds; No Tenderness; No Distention Neurological: - - Alert, oriented x 0 Lines/Tubes/Other Access: Clean, Dry and Intact Peripheral IV Nutrition: Taking PO's - full assist Result Diagrams: 11/25/16 05:30 11/25/16 06:42 Additional Lab and Data: Lab Results 11/09/16 11/09/16 11/09/16 Range/Units 05:50 05:50 05:50 WBC 10.6 (3.5-10.8) 10^3/ul RBC 5.93 H (4.0-5.4) 10^6/ul Hgb 16.3 (14.0-18.0) g/dl Hct 55 H (42-52) % MCV 93 (80-94) fL MCH 27 (27-31) pg MCHC 30 L (31-36) g/dl RDW 19 H (10.5-15) % Plt Count 204 (150-450) 10^3/ul MPV 8 (7.4-10.4) um3 Immature Gran % (Auto) 10 H (0-9) % Neut % (Auto) 81.4 (38-83) % Lymph % (Auto) 13.9 L (25-47) % [facility] % (Auto) 3.9 (1-9) % Eos % (Auto) 0.2 (0-6) % Baso % (Auto) 0.6 (0-2) % Absolute Neuts (auto) 8.6 H (1.5-7.7) 10^3/ul Absolute Lymphs (auto) 1.5 (1.0-4.8) 10^3/ul Absolute Monos (auto) 0.4 (0-0.8) 10^3/ul Absolute Eos (auto) 0 (0-0.6) 10^3/ul Absolute Basos (auto) 0.1 (0-0.2) 10^3/ul Absolute Nucleated RBC 0.07 10^3/ul Neutrophils % 79 (38-83) % Band Neutrophils % 4 (0-8) % Lymphocytes % 8 L (25-47) % Monocytes % 3 (0-13) % Metamyelocytes % 5 H (0-2) % Myelocytes % 1 (0-1) % Nucleated RBC % 0.7 Nucleated RBCs/100 WBC 1 H (0-0) Normal RBC Morphology Not Reportable Microcytosis 1+ Macrocytosis 1+ INR (Anticoag Therapy) 1.01 (0.89-1.11) APTT 29.2 (26.0-36.3) seconds Patient Temperature ABG pH (7.35-7.45) ABG pCO2 (35-45) mmHg ABG pO2 (80-100) mmHg ABG HCO3 (19-31) mmol/L ABG O2 Saturation (95-98) % ABG Base Excess (-2.0-2.0) Respiration Rate O2 Delivery Device Ventilator Type Vent Mode FiO2 Inspiratory Time PEEP Pressure Support Pressure Control EPAP IPAP BiPAP Sodium 134 (133-145) mmol/L Potassium 5.0 (3.5-5.0) mmol/L Chloride 87 L (101-111) mmol/L Carbon Dioxide 40 H (22-32) mmol/L Anion Gap 7 (2-11) mmol/L BUN 11 (6-24) mg/dL Creatinine 0.82 (0.67-1.17) mg/dL Est GFR ( Amer) 126.4 (>60) Est GFR (Non-Af Amer) 98.3 (>60) BUN/Creatinine Ratio 13.4 (8-20) Glucose 193 H (70-100) mg/dL Lactic Acid (0.5-2.0) mmol/L Calcium 9.6 (8.6-10.3) mg/dL Magnesium 2.1 (1.9-2.7) mg/dL Total Bilirubin 0.50 (0.2-1.0) mg/dL AST 23 (13-39) U/L ALT 20 (7-52) U/L Alkaline Phosphatase 75 (34-104) U/L Total Creatine Kinase 41 (10-223) U/L CK-MB (CK-2) 3.1 (0.6-6.3) ng/mL Troponin I 0.03 (<0.04) ng/mL B-Natriuretic Peptide ( - 100) pg/mL Total Protein 7.7 (6.4-8.9) g/dL Albumin 3.6 (3.2-5.2) g/dL Globulin 4.1 H (2-4) g/dL Albumin/Globulin Ratio 0.9 L (1-3) Thyroxine (T4) 4.60 L (6.09-12.23) mcg/mL Serum Alcohol < 10 (<10) mg/dL Blood Type Antibody Screen 11/09/16 11/09/16 11/09/16 Range/Units 05:50 05:50 05:50 WBC (3.5-10.8) 10^3/ul RBC (4.0-5.4) 10^6/ul Hgb (14.0-18.0) g/dl Hct (42-52) % MCV (80-94) fL MCH (27-31) pg MCHC (31-36) g/dl RDW (10.5-15) % Plt Count (150-450) 10^3/ul MPV (7.4-10.4) um3 Immature Gran % (Auto) (0-9) % Neut % (Auto) (38-83) % Lymph % (Auto) (25-47) % [facility] % (Auto) (1-9) % Eos % (Auto) (0-6) % Baso % (Auto) (0-2) % Absolute Neuts (auto) (1.5-7.7) 10^3/ul Absolute Lymphs (auto) (1.0-4.8) 10^3/ul Absolute Monos (auto) (0-0.8) 10^3/ul Absolute Eos (auto) (0-0.6) 10^3/ul Absolute Basos (auto) (0-0.2) 10^3/ul Absolute Nucleated RBC 10^3/ul Neutrophils % (38-83) % Band Neutrophils % (0-8) % Lymphocytes % (25-47) % Monocytes % (0-13) % Metamyelocytes % (0-2) % Myelocytes % (0-1) % Nucleated RBC % Nucleated RBCs/100 WBC (0-0) Normal RBC Morphology Microcytosis Macrocytosis INR (Anticoag Therapy) (0.89-1.11) APTT (26.0-36.3) seconds Patient Temperature ABG pH (7.35-7.45) ABG pCO2 (35-45) mmHg ABG pO2 (80-100) mmHg ABG HCO3 (19-31) mmol/L ABG O2 Saturation (95-98) % ABG Base Excess (-2.0-2.0) Respiration Rate O2 Delivery Device Ventilator Type Vent Mode FiO2 Inspiratory Time PEEP Pressure Support Pressure Control EPAP IPAP BiPAP Sodium (133-145) mmol/L Potassium (3.5-5.0) mmol/L Chloride (101-111) mmol/L Carbon Dioxide (22-32) mmol/L Anion Gap (2-11) mmol/L BUN (6-24) mg/dL Creatinine (0.67-1.17) mg/dL Est GFR ( Amer) (>60) Est GFR (Non-Af Amer) (>60) BUN/Creatinine Ratio (8-20) Glucose (70-100) mg/dL Lactic Acid 5.7 H* (0.5-2.0) mmol/L Calcium (8.6-10.3) mg/dL Magnesium (1.9-2.7) mg/dL Total Bilirubin (0.2-1.0) mg/dL AST (13-39) U/L ALT (7-52) U/L Alkaline Phosphatase (34-104) U/L Total Creatine Kinase (10-223) U/L CK-MB (CK-2) (0.6-6.3) ng/mL Troponin I (<0.04) ng/mL B-Natriuretic Peptide 232 H ( - 100) pg/mL Total Protein (6.4-8.9) g/dL Albumin (3.2-5.2) g/dL Globulin (2-4) g/dL Albumin/Globulin Ratio (1-3) Thyroxine (T4) (6.09-12.23) mcg/mL Serum Alcohol (<10) mg/dL Blood Type A Positive Antibody Screen Negative 11/09/16 Range/Units 06:30 WBC (3.5-10.8) 10^3/ul RBC (4.0-5.4) 10^6/ul Hgb (14.0-18.0) g/dl Hct (42-52) % MCV (80-94) fL MCH (27-31) pg MCHC (31-36) g/dl RDW (10.5-15) % Plt Count (150-450) 10^3/ul MPV (7.4-10.4) um3 Immature Gran % (Auto) (0-9) % Neut % (Auto) (38-83) % Lymph % (Auto) (25-47) % [facility] % (Auto) (1-9) % Eos % (Auto) (0-6) % Baso % (Auto) (0-2) % Absolute Neuts (auto) (1.5-7.7) 10^3/ul Absolute Lymphs (auto) (1.0-4.8) 10^3/ul Absolute Monos (auto) (0-0.8) 10^3/ul Absolute Eos (auto) (0-0.6) 10^3/ul Absolute Basos (auto) (0-0.2) 10^3/ul Absolute Nucleated RBC 10^3/ul Neutrophils % (38-83) % Band Neutrophils % (0-8) % Lymphocytes % (25-47) % Monocytes % (0-13) % Metamyelocytes % (0-2) % Myelocytes % (0-1) % Nucleated RBC % Nucleated RBCs/100 WBC (0-0) Normal RBC Morphology Microcytosis Macrocytosis INR (Anticoag Therapy) (0.89-1.11) APTT (26.0-36.3) seconds Patient Temperature Not Reportable ABG pH 7.18 L* (7.35-7.45) ABG pCO2 122 H* (35-45) mmHg ABG pO2 211 H (80-100) mmHg ABG HCO3 33.3 H (19-31) mmol/L ABG O2 Saturation 99.2 H (95-98) % ABG Base Excess 11.2 H (-2.0-2.0) Respiration Rate 12 O2 Delivery Device C2 Ventilator Type Not Reportable Vent Mode pcv+ FiO2 100 Inspiratory Time 1 PEEP 5 Pressure Support Not Reportable Pressure Control 28 EPAP Not Reportable IPAP Not Reportable BiPAP Not Reportable Sodium (133-145) mmol/L Potassium (3.5-5.0) mmol/L Chloride (101-111) mmol/L Carbon Dioxide (22-32) mmol/L Anion Gap (2-11) mmol/L BUN (6-24) mg/dL Creatinine (0.67-1.17) mg/dL Est GFR ( Amer) (>60) Est GFR (Non-Af Amer) (>60) BUN/Creatinine Ratio (8-20) Glucose (70-100) mg/dL Lactic Acid (0.5-2.0) mmol/L Calcium (8.6-10.3) mg/dL Magnesium (1.9-2.7) mg/dL Total Bilirubin (0.2-1.0) mg/dL AST (13-39) U/L ALT (7-52) U/L Alkaline Phosphatase (34-104) U/L Total Creatine Kinase (10-223) U/L CK-MB (CK-2) (0.6-6.3) ng/mL Troponin I (<0.04) ng/mL B-Natriuretic Peptide ( - 100) pg/mL Total Protein (6.4-8.9) g/dL Albumin (3.2-5.2) g/dL Globulin (2-4) g/dL Albumin/Globulin Ratio (1-3) Thyroxine (T4) (6.09-12.23) mcg/mL Serum Alcohol (<10) mg/dL Blood Type Antibody Screen Microbiology and Other Data: Microbiology 11/23/16 11:05 Stool Gross Appearance - Final Stool C. difficile DNA Amplification - Final 027 Presumptive NEGATIVE Toxigenic C.diff NEGATIVE 11/18/16 10:56 Gram Stain - Final Sputum Sputum Culture - Final Staphylococcus Aureus Haemophilus Parainfluenzae Normal Mere 11/10/16 06:20 Aerobic Blood Culture - Final Blood Venous No Growth Day 5 Anaerobic Blood Culture - Final No Growth Day 5 Blood Culture - Final 11/09/16 09:10 Nasal Screen MRSA (PCR)([facility]) - Final Nasal Mrsa Negative Assess/Plan/Problems-Billing Assessment: Mr. Doe is a 51 yo male with a PMH of COPD, ASUTIN, HTN, anxiety, chronic pain, CHF, HLD, morbid obesity and nephrolithiasis who presented to the ED on 11/09/16 as a cardiac respiratory arrest at home; patient was down for 20 minutes but EMS was able to achieve ROSC and a returning rhythm of atrial fibrillation. Patient able to be extubated after complicated course but now with anoxic brain injury. - Patient Problems (1) Comfort measures only status Code(s): Z51.5 - ENCOUNTER FOR PALLIATIVE CARE Comment: Patient s/p cardiac respiratory arrest on 11/09/16, now with anoxic brain injury. Discharge to [facility] with hospice sign-on tomorrow. (2) Cardiac arrest Code(s): I46.9 - CARDIAC ARREST, CAUSE UNSPECIFIED Comment: On 11/09/16 - reported asystole in field With ROSC out in the field, returning rhythm of atrial fibrillation, and therapeutic hypothermia. (3) Acute on chronic respiratory failure with hypoxia and hypercapnia Code(s): J96.21 - ACUTE AND CHRONIC RESPIRATORY FAILURE WITH HYPOXIA; J96.22 - ACUTE AND CHRONIC RESPIRATORY FAILURE WITH HYPERCAPNIA Comment: Suspected cause of patient's cardiac arrest, now improved Continue chronic O2 Plan for hospice sign on (4) Hypoxic ischemic encephalopathy [HIE], unspecified Code(s): P91.60 - HYPOXIC ISCHEMIC ENCEPHALOPATHY [HIE], UNSPECIFIED Comment: With anoxic brain injury Appreciate palliative care consult. Discharge to [facility] with hospice sign on (5) COPD (chronic obstructive pulmonary disease) Code(s): J44.9 - CHRONIC OBSTRUCTIVE PULMONARY DISEASE, UNSPECIFIED Comment: Continue prn nebulizers. (6) Chronic pain Code(s): G89.29 - OTHER CHRONIC PAIN Comment: Patient agitation improved Continue home methadone and Lyrica (patient with allergies to morphine and codeine). (7) HTN (hypertension) Code(s): I10 - ESSENTIAL (PRIMARY) HYPERTENSION Comment: Mostly controlled. Continue amlodipine and metoprolol. (8) DVT prophylaxis Code(s): LGH0405 - Comment: SQ heparin (9) DNR (do not resuscitate) Status and Disposition: Inpatient admission. Discharge to [facility] with [facility] sign-on.
[2016-11-28] MEDS: Potassium Chloride LIQUID* 20 MEQ PACKET PO SCH (09:34)
[2016-11-28] MEDS: Methadone TAB* 10 MG PO SCH (09:34)
[2016-11-28] MEDS: Famotidine TAB* 20 MG PO SCH (09:35)
[2016-11-28] MEDS: QUEtiapine TAB* 25 MG PO SCH (09:37)
[2016-11-28] MEDS: amLODIPine TAB* 5 MG PO SCH (09:38)
[2016-11-28] MEDS: busPIRone TAB* 15 MG PO SCH (09:38)
[2016-11-28] MEDS: Metoprolol Tartrate TAB* 25 MG PO SCH (09:38)
--- NOTE | 2016-11-28 10:56 | TRS ---
TRANSFER SUMMARY: DATE OF ADMISSION: 11/09/16 DATE OF TRANSFER: 11/28/16 PROVIDER: Malik Grier NP. ATTENDING PHYSICIAN: Dr. Rosa Alcantara* (dictated by Malik Grier NP). CONSULTING PHYSICIAN: Dr. Aleksey Huang and Dr. Carlos Damon, Perioperative Educator. PRIMARY DISCHARGE DIAGNOSES: 1. Cardiac arrest out of the hospital with return of spontaneous circulation in the field. 2. Acute on chronic hypercapnic respiratory failure. 3. Acute on chronic hypoxemic respiratory failure. 4. Severe sepsis. 5. Acute kidney injury. 6. Atrial fibrillation. 7. Hypoxic ischemic encephalopathy with anoxic brain injury. SECONDARY DISCHARGE DIAGNOSES: 1. History of chronic obstructive pulmonary disease. 2. Tobacco use. 3. Obstructive sleep apnea. 4. Hypertension. 5. Chronic pain. 6. Anxiety. 7. History of congestive heart failure. 8. History of nephrolithiasis. 9. Hyperlipidemia. 10. Morbid obesity. MEDICATIONS AT DISCHARGE: 1. BuSpar 15 mg b.i.d. 2. Lyrica 100 mg t.i.d. 3. Amlodipine 5 mg daily. 4. Seroquel 25 mg b.i.d. 5. Metoprolol tartrate 25 mg b.i.d. 6. Methadone 20 mg t.i.d. 7. Lorazepam 1 mg q.4 hours p.r.n. 8. Famotidine 20 mg daily. 9. DuoNeb 1 nebulizer treatment inhaled q.6 hours. HOSPITAL COURSE OF STAY: For full details, please refer to the admission notes from Dr. Robledo as well as the full medical record. In summary, Mr. Doe is a 51- year-old male patient who presented to the hospital back on 11/09/16 due to a cardiac respiratory arrest that occurred at home. Per the notes, the patient was living with his father when his father heard a thump on the floor; father witnessed the patient falling out of his bed and noted him to be unconscious. EMS was called, EMS arrived and reported asystole and started CPR. Patient was reportedly down for about 20 minutes. They did get the pulse back on arrival, which showed atrial fibrillation and the patient remained intubated on propofol and was admitted to the ICU. After his arrest, patient did have therapeutic hypothermia. It was felt his arrest was secondary to acute on chronic hypercapnic respiratory failure. Patient was extubated on the 11/16/16, then re-intubated on 11/18/16 for respiratory failure. He was able to be re-extubated again on 11/20/16. The patient did have a hospital course that was complicated by severe sepsis secondary to H. parainfluenzae and Staph aureus pneumonia and tracheobronchitis. Patient also was noted to have acute kidney injury with ischemic acute tubular necrosis and septic ATN. Due to his cardiac arrest and multitude of other medical issues, the patient has had persistent hypoxic ischemic encephalopathy with anoxic brain injury, thus prompting a palliative care consult. Social Work has been involved in order to help find appropriate healthcare proxy for the patient. The patient's sister, Elvira Pérez, was named as the healthcare proxy to make legal decisions. A MOLST form is completed for a DNR/DNI and this was signed on 11/26. Due to the patient's cognitive function is markedly reduced secondary to his anoxic brain injury, he is unable to live by himself. After discussion with Palliative Care, it was felt that the patient will be appropriate for hospice sign-on as he does meet with the terminal diagnosis of anoxic brain injury with secondary diagnosis of respiratory failure and cor pulmonale. The family has decided on [facility] with hospice. The patient has not been able to demonstrate or produce any type of meaningful interaction or communication. He does require complete assistance with feeding. He does attempt to speak, but often whispers or just mouths nonsensical words. His agitation was noted on multiple occasions, but this has since improved once restarting the patient's chronic pain medications. Patient was previously on methadone t.i.d. for chronic pain, which was prescribed by his PCP. After initiating this the patient was markedly more calm, was able to rest more comfortably. He does also have p.r.n. Lorazepam every 4 hours as needed for anxiety and we have continued him on Seroquel, which have helped to manage his anxiety and agitation. CONCERNS AT DISCHARGE: Mr. Doe will be discharged to [facility] with hospice care sign-on, on 11/28/16. DIET: Regular comfort care diet. ACTIVITY: As tolerated. CONDITION: Guarded, with poor prognosis. DISPOSITION: To [facility]. TIME SPENT: Time spent on this discharge was approximately 45 minutes. Again, this is only a brief summary of the patient's extended hospital course of stay. For full details, please refer to the full medical record. If there are any further questions or you need further assistance, please feel free to contact me at [phone]. MALIK GRIER NP CC: Cliff Martínez MD* [id number]/[facility] #: [id number] JAVI
== END 2016-11-28 11:45 | DRG 296 ==
LOC: ED 05:38 → ICU 07:42 → MED 11-26 14:46
PROVIDERS: ADMIT Internal Medicine; ATTEND Internal Medicine
PROC: 5A1955Z Respiratory Ventilation, Greater than 96 Consecutive Hours (ICD-10-PCS; 2016-11-09)
PROC: 0DH67UZ Insertion of Feeding Device into Stomach, Via Natural or Artificial Opening (ICD-10-PCS; 2016-11-10)
PROC: 3E0G76Z Introduction of Nutritional Substance into Upper GI, Via Natural or Artificial Opening (ICD-10-PCS; 2016-11-10)
PROC: 0T9B70Z Drainage of Bladder with Drainage Device, Via Natural or Artificial Opening (ICD-10-PCS; 2016-11-10)
PROC: 0B21XEZ Change Endotracheal Airway in Trachea, External Approach (ICD-10-PCS; 2016-11-12)
PROC: 4A00X4Z Measurement of Central Nervous Electrical Activity, External Approach (ICD-10-PCS; 2016-11-13)
PROC: 0BH17EZ Insertion of Endotracheal Airway into Trachea, Via Natural or Artificial Opening (ICD-10-PCS; 2016-11-18)
PROC: 5A1945Z Respiratory Ventilation, 24-96 Consecutive Hours (ICD-10-PCS; 2016-11-18)
PROC: 0BH17EZ Insertion of Endotracheal Airway into Trachea, Via Natural or Artificial Opening (ICD-10-PCS; 2016-11-20)
PROC: 5A1935Z Respiratory Ventilation, Less than 24 Consecutive Hours (ICD-10-PCS; 2016-11-20)
PROC: 5A09457 Assistance with Respiratory Ventilation, 24-96 Consecutive Hours, Continuous Positive Airway Pressure (ICD-10-PCS; principal; 2016-11-21)
DX: I46.9 Cardiac arrest, cause unspecified (principal); G93.6 Cerebral edema; J96.21 Acute and chronic respiratory failure with hypoxia; R65.20 Severe sepsis without septic shock; N17.0 Acute kidney failure with tubular necrosis; J15.211 Pneumonia due to Methicillin susceptible Staphylococcus aureus; J96.22 Acute and chronic respiratory failure with hypercapnia; A41.9 Sepsis, unspecified organism; J15.6 Pneumonia due to other Gram-negative bacteria; E87.0 Hyperosmolality and hypernatremia; J44.0 Chronic obstructive pulmonary disease with (acute) lower respiratory infection; I42.9 Cardiomyopathy, unspecified; I11.0 Hypertensive heart disease with heart failure; G93.1 Anoxic brain damage, not elsewhere classified; I50.9 Heart failure, unspecified; E87.2 Acidosis; I48.91 Unspecified atrial fibrillation; J44.9 Chronic obstructive pulmonary disease, unspecified; I25.10 Atherosclerotic heart disease of native coronary artery without angina pectoris; E78.00 Pure hypercholesterolemia, unspecified; G89.29 Other chronic pain; F17.210 Nicotine dependence, cigarettes, uncomplicated; Z96.642 Presence of left artificial hip joint; G47.33 Obstructive sleep apnea (adult) (pediatric); I27.2 Other secondary pulmonary hypertension; I27.81 Cor pulmonale (chronic); F41.9 Anxiety disorder, unspecified; E66.01 Morbid (severe) obesity due to excess calories; L27.0 Generalized skin eruption due to drugs and medicaments taken internally; T49.0X5A Adverse effect of local antifungal, anti-infective and anti-inflammatory drugs, initial encounter; K59.00 Constipation, unspecified; R41.0 Disorientation, unspecified; E86.1 Hypovolemia; R19.7 Diarrhea, unspecified; Z66 Do not resuscitate; Z51.5 Encounter for palliative care; J40 Bronchitis, not specified as acute or chronic; R45.1 Restlessness and agitation; Z68.32 Body mass index [BMI] 32.0-32.9, adult; Z87.442 Personal history of urinary calculi; Z98.1 Arthrodesis status; Z82.49 Family history of ischemic heart disease and other diseases of the circulatory system; Z88.6 Allergy status to analgesic agent; Z88.5 Allergy status to narcotic agent; Z88.8 Allergy status to other drugs, medicaments and biological substances; Z82.5 Family history of asthma and other chronic lower respiratory diseases; Z95.0 Presence of cardiac pacemaker
CPT/HCPCS: 36415; 36600; 70450; 70551; 71010; 72125; 80048; 80053; 80076; 80202; 80307; 80320; 81003; 81015; 82040; 82140; 82550; 82553; 82803; 83605; 83735; 83880; 84100; 84134; 84300; 84436; 84484; 85025; 85027; 85610; 85730; 86850; 86900; 86901; 87040; 87070; 87077; 87186; 87205; 87493; 87641; 92950; 93005; 93306; 94002; 94003; 94640; 94660; 94667; 94668; 94760; 95819; A9270-GY; C1751; G0480; J0330; J0360; J0696; J1120; J1170; J1644; J1940; J2060; J2270; J2543; J2704; J2920; J2930; J2997; J3010; J3370; J3480; J7512